=== PATIENT | female | born 1960 | race Caucasian/White ===

== ENCOUNTER 2019-06-06 08:28 | Outpatient (CLI) | payer OTHER, SELFPAY ==
[2019-06-06 08:58] LABS: Hemoglobin A1C 7.3 % (<5.7)
[2019-06-06 09:32] LABS: Alanine Aminotransferase 43 U/L (14-59); Albumin Level 3.6 g/dL (3.4-5.0); Alkaline Phosphatase 79 U/L (46-116); Anion Gap 15.5 mmol/L (7-16); Aspartate Amino Transferase 22 U/L (15-37); Bilirubin,Total 0.8 mg/dL (0.00-1.00); Blood Urea Nitrogen 18 mg/dL (7-18); Calcium 8.8 mg/dL (8.5-10.1); Carbon Dioxide 26 mmol/L (21-32); Chloride 105 mmol/L (98-108); Cholesterol 190 mg/dL (0-200); Estimated Glomerular Filt Rate > 60; Glucose 156 mg/dL (70-99); HDL Direct 48 mg/dL (40-60); LDL Cholesterol Calculated 122 mg/dL (<130); Osmolality Calculated 298 mOsm/kg (285-295); Potassium 4.5 mmol/L (3.5-5.1); Sodium 142 mmol/L (136-145); Total Protein 7.1 g/dL (6.4-8.2); Triglycerides 101 mg/dL (0-150)
== END 2019-06-06 08:29 | disposition home or self-care (01) ==
LOC: CHSLAB 08:31
PROVIDERS: PCP Internal Medicine; Visit Provider Internal Medicine
DX: E78.2 Mixed hyperlipidemia (principal); E11.65 Type 2 diabetes mellitus with hyperglycemia
CPT/HCPCS: 36415; 80053; 80061; 83036

== ENCOUNTER 2019-12-29 07:44 | Outpatient (CLI) | payer OTHER, SELFPAY ==
[2019-12-29 07:59] LABS: Add Urine Microscopic? NO; Appearance Urine Clear (Clear); Bilirubin Urine Negative (Negative); Blood Urine Negative (Negative); Color Urine Yellow (Yellow); Glucose Urine UA Negative (Negative); Ketones Urine Negative (Negative); Leukocyte Esterase Ur Negative (Negative); Nitrate Urine Negative (Negative); Protein Urine Negative (Negative); Specific Grav Ur 1.025 (1.010-1.020); Urobilinogen Urine 0.2 mg/dL (0.2-1.0)
[2019-12-29 08:12] LABS: Bacteria Urine None seen /hpf; RBC Urine 0-2 /hpf (0-2); Squamous Epithelial Cell Urine Few /hpf (Few); WBC Urine 0-3 /hpf (0-3)
[2019-12-29 08:55] LABS: Alanine Aminotransferase 43 U/L (14-59); Albumin Level 3.7 g/dL (3.4-5.0); Alkaline Phosphatase 68 U/L (46-116); Anion Gap 5 mmol/L (8-16); Aspartate Amino Transferase 29 U/L (15-37); Blood Urea Nitrogen 18 mg/dL (7-18); Calcium 8.7 mg/dL (8.5-10.1); Carbon Dioxide 33 mmol/L (21-32); Chloride 106 mmol/L (98-108); Cholesterol 142 mg/dL (0-200); Creatine Kinase 155 U/L (26-192); Estimated Glomerular Filt Rate > 60; Glucose 101 mg/dL (70-99); HDL Direct 43 mg/dL (40-60); LDL Cholesterol Calculated 81 mg/dL (<130); Osmolality Calculated 299 mOsm/kg (285-295); Potassium 4.1 mmol/L (3.5-5.1); Sodium 144 mmol/L (136-145); Total Protein 6.7 g/dL (6.4-8.2); Triglycerides 90 mg/dL (0-150)
[2019-12-29 09:03] LABS: MALB Creatinine Ratio 7.7 mg/g (0-30); Microalbumin Urine Random < 13.0 mg/L
== END 2019-12-29 07:45 | disposition home or self-care (01) ==
PROVIDERS: PCP Internal Medicine; Visit Provider Internal Medicine
DX: E78.2 Mixed hyperlipidemia (principal); E11.65 Type 2 diabetes mellitus with hyperglycemia; I10 Essential (primary) hypertension
CPT/HCPCS: 36415; 80053; 80061; 81003; 82043; 82550; 83036

== ENCOUNTER 2020-05-21 07:28 | Outpatient (CLI) | payer OTHER, SELFPAY ==
[2020-05-21 07:51] LABS: Hematocrit 44.4 % (35.0-49.0); Mean Corpuscular HGB Conc 31.5 g/dL (32.0-36.0); Mean Corpuscular Hemoglobin 28.7 pg (27.0-31.0); Mean Corpuscular Volume 91.2 fL (78.0-102.0); Mean Platelet Volume 9.2 fl (9.2-11.8); Platelet Count Result 327 K/mm3 (150-420); Red Blood Count 4.87 M/mm3 (4.20-5.40); Red Cell Distribution Width 13.2 % (11.6-14.4); White Blood Count 6.6 K/mm3 (4.8-10.8)
[2020-05-21 07:58] LABS: Add Urine Microscopic? NO; Appearance Urine Clear (Clear); Bilirubin Urine Negative (Negative); Blood Urine Negative (Negative); Color Urine Yellow (Yellow); Glucose Urine UA Negative (Negative); Ketones Urine Negative (Negative); Leukocyte Esterase Ur Negative (Negative); Nitrate Urine Negative (Negative); Protein Urine Negative (Negative); Specific Grav Ur 1.025 (1.010-1.020); Urobilinogen Urine 0.2 mg/dL (0.2-1.0)
[2020-05-21 07:59] LABS: Hemoglobin A1C 7.7 % (<5.7)
[2020-05-21 08:07] LABS: MALB Creatinine Ratio 15.9 mg/g (0-30); Microalbumin Urine Random 19.5 mg/L
[2020-05-21 08:52] LABS: Alanine Aminotransferase 88 U/L (14-59); Albumin Level 3.7 g/dL (3.4-5.0); Alkaline Phosphatase 87 U/L (46-116); Anion Gap 7 mmol/L (8-16); Aspartate Amino Transferase 48 U/L (15-37); Bilirubin,Total 1.1 mg/dL (0.00-1.00); Blood Urea Nitrogen 17 mg/dL (7-18); Calcium 9.1 mg/dL (8.5-10.1); Carbon Dioxide 32 mmol/L (21-32); Chloride 102 mmol/L (98-108); Cholesterol 183 mg/dL (0-200); Creatine Kinase 234 U/L (26-192); Estimated Glomerular Filt Rate 50; Free T3 2.56 pg/mL (2.18-3.98); Free T4 Free Thyroxine 0.76 ng/dL (0.76-1.46); Glucose 175 mg/dL (70-99); HDL Direct 39 mg/dL (40-60); LDL Cholesterol Calculated 109 mg/dL (<130); Osmolality Calculated 297 mOsm/kg (285-295); Potassium 4.5 mmol/L (3.5-5.1); Sodium 141 mmol/L (136-145); Thyroid Stimulating Hormone 3.12 uIU/mL (0.36-3.74); Total Protein 6.7 g/dL (6.4-8.2); Triglycerides 173 mg/dL (0-150)
[2020-05-21 09:08] LABS: Band Neutrophils Percent 0 % (0-6); Eosinophils Absolute Manual 0.06 K/mm3 (0.02-0.5); Eosinophils Percent Manual 1 % (1-6); Lymphocytes Absolute Manual 5.08 K/mm3 (1.1-4.5); Lymphocytes Percent Manual 77 % (18-44); Monocytes Absolute Manual 0.33 K/mm3 (0.1-0.90); Monocytes Percent Manual 5 % (3-9); Neutrophils Absolute Manual 1.12 K/mm3 (1.7-7.2); Neutrophils Percent Manual 17 % (46-73); Platelet Estimate Adequate (Adequate); Total Cells Counted 100
== END 2020-05-21 07:29 | disposition home or self-care (01) ==
LOC: CHSLAB 07:32
PROVIDERS: PCP Internal Medicine; Visit Provider Internal Medicine
DX: E78.2 Mixed hyperlipidemia (principal); I10 Essential (primary) hypertension; E11.65 Type 2 diabetes mellitus with hyperglycemia; K73.8 Other chronic hepatitis, not elsewhere classified
CPT/HCPCS: 36415; 80053; 80061; 81003; 82043; 82550; 83036; 84439; 84443; 84481; 85025

== ENCOUNTER 2020-07-01 08:56 | Outpatient (CLI) | payer OTHER, SELFPAY ==
[2020-07-01 10:24] LABS: Alanine Aminotransferase 63 U/L (14-59); Albumin Level 3.8 g/dL (3.4-5.0); Alkaline Phosphatase 75 U/L (46-116); Anion Gap 6 mmol/L (8-16); Aspartate Amino Transferase 33 U/L (15-37); Bilirubin,Total 1.3 mg/dL (0.00-1.00); Blood Urea Nitrogen 20 mg/dL (7-18); Calcium 9.1 mg/dL (8.5-10.1); Carbon Dioxide 34 mmol/L (21-32); Chloride 102 mmol/L (98-108); Estimated Glomerular Filt Rate 50; Glucose 157 mg/dL (70-99); Osmolality Calculated 299 mOsm/kg (285-295); Potassium 4.5 mmol/L (3.5-5.1); Sodium 142 mmol/L (136-145); Total Protein 6.9 g/dL (6.4-8.2)
== END 2020-07-01 08:57 | disposition home or self-care (01) ==
PROVIDERS: PCP Internal Medicine; Visit Provider Internal Medicine
DX: E11.65 Type 2 diabetes mellitus with hyperglycemia (principal)
CPT/HCPCS: 36415; 80053

== ENCOUNTER 2021-07-07 07:51 | Outpatient (CLI) | payer OTHER, SELFPAY ==
[2021-07-07 08:32] LABS: Hemoglobin A1C 8.6 % (<5.7)
[2021-07-07 09:07] LABS: Alanine Aminotransferase 65 U/L (14-59); Albumin Level 3.5 g/dL (3.4-5.0); Alkaline Phosphatase 86 U/L (46-116); Anion Gap 4 mmol/L (8-16); Aspartate Amino Transferase 38 U/L (15-37); Bilirubin,Total 0.5 mg/dL (0.00-1.00); Blood Urea Nitrogen 14 mg/dL (7-18); Calcium 9.2 mg/dL (8.5-10.1); Carbon Dioxide 34 mmol/L (21-32); Chloride 102 mmol/L (98-108); Estimated Glomerular Filt Rate > 60; Glucose 128 mg/dL (70-99); Osmolality Calculated 292 mOsm/kg (285-295); Potassium 4.4 mmol/L (3.5-5.1); Sodium 140 mmol/L (136-145); Total Protein 6.8 g/dL (6.4-8.2)
== END 2021-07-07 07:52 | disposition home or self-care (01) ==
LOC: CHSLAB 07:52
PROVIDERS: PCP Internal Medicine; Visit Provider Internal Medicine
DX: E11.65 Type 2 diabetes mellitus with hyperglycemia (principal)
CPT/HCPCS: 36415; 80053; 83036

== ENCOUNTER 2021-12-19 16:55 | Outpatient (RCR) | payer OTHER, SELFPAY ==
--- NOTE | 2021-12-19 18:01 | PTOPEVAL1 ---
Assessment and note entered by Aysha Webb DPT Evaluation Information Assessment Status Evaluation Diagnosis R shoulder pain Onset 06/06/2021 Subjective Information Pt reports that pain begain in June with insidious onset. Pt reports most difficulty with reaching behind her and reaching behind her back but reports lifting heavy objects. Pt reports that she notes some discomfort after typing all day long in her shoulder. Pt reports most discomfort within the joint and like a band around her arm. Pt reports occasionally numbness/tingling in her elbows, wrist, and hands. She reports that sleep has been affected as she struggles to lay on her side (especially the R). She reports that her symptoms have been worsening over time. 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 Pt reports that in the past she has had mild pain in her shoulder due to her diagnosis of RA but never an injury before. Reported Pain Level Pain Score 6: Self Report Assessment PT Clinical Summary Pt presents to physical therapy with R shoulder pain, decreased ROM, altered posture, and decreased strength. She presents with signs and symptoms consistent with R adhesive capsulitis due to her decreased AROM and PROM in a capsular pattern, relatively normal strength, and high levels of pain over a long period of time. Her current deficits make it more difficult for her to reach forward and behind her without significant pain. She was educated on potential pathophysiology and POC going forward. She was provided with an HEP focused on shoulder mobility within her tolerance. She will benefit from skilled PT to facilitate symptom relief, improve the aforementioned impairments, and return to functional and recreational activities. Plan of Care Interventions Electrical Stimulation,Hot Pack/Cold Pack,Manual Therapy,Patient/Caregiver Educati,Therapeutic Activities,Therapeutic Exercise PT Services Indicated Yes Treatment Frequency and 1-2x week for 8 visits Duration These treatments will address the objective and functional deficits as defined above. The patient will be advanced safely and appropriately in order for the patient to progress towards his/her prior level of function. Additional exercises will be introduced and as well as a comprehensive home exercise program upon discharg
--- NOTE | 2022-02-01 14:05 | PTOPDC ---
Assessment and note entered by Aysha Webb DPT Evaluation Information Assessment Status Discharge Diagnosis R shoulder pain Onset 06/06/2021 Subjective Information Pt reports slight improvements in her functional level since beginning therapy. She still has a lot of difficulty when putting on her coat. She notes that she has been able to lie on her R shoulder more than she used to, and is not in constant pain anymore like she used to be. She still reports pain in a band formation around her arm. She still gets some numbness and tingling in her arm but this is not quite as severe. Reported Pain Level Pain Score 2: Self Report Assessment PT Clinical Summary Pt presents to physical therapy with significant improvements in pain, quality of life, and R UE strength, however, she demonstrates insignificant changes in R UE ROM after 8 visits of physical therapy over 6 weeks. PT suspects this is likely due to the patient still being in the frozen stage of her adhesive capsulitis. She was educated on continuing her current HEP independently to maintain the improvements she had made thusfar with PT. She was also educated on the potential for an injection for her shoulder should her pain worsen with functional activities. Lastly, she was educated on following up with our clinic once her range of motion and symptoms seem to improve.
== END 2022-02-01 16:43 | disposition home or self-care (01) ==
LOC: CHSPT 16:55
PROVIDERS: PCP Internal Medicine; Visit Provider Internal Medicine
DX: M25.511 Pain in right shoulder (principal)
CPT/HCPCS: 97014; 97110; 97161; G0283

== ENCOUNTER 2022-03-17 07:01 | Outpatient (CLI) | payer OTHER, SELFPAY ==
[2022-03-17 07:23] LABS: Basophils Absolute Auto 0.06 K/mm3 (0.00-0.10); Basophils Percent Auto 1.1 % (0.0-1.0); Eosinophils Absolute Auto 0.15 K/mm3 (0.02-0.50); Eosinophils Percent Auto 2.7 % (1.0-6.0); Hematocrit 43.6 % (35.0-49.0); Hemoglobin 13.9 g/dL (12.0-15.0); Immature Granulocyte Absolute 0.01 K/mm3 (0.00-0.00); Immature Granulocyte Percent A 0.2 % (0.0-0.0); Lymphocytes Percent Auto 57.9 % (18.0-42.0); Mean Corpuscular HGB Conc 31.9 g/dL (32.0-36.0); Mean Corpuscular Hemoglobin 29.1 pg (27.0-31.0); Mean Corpuscular Volume 91.4 fL (78.0-102.0); Mean Platelet Volume 8.8 fl (9.2-11.8); Monocytes Absolute Auto 0.32 K/mm3 (0.10-0.90); Monocytes Percent Auto 5.8 % (2.0-11.0); Neutrophils Absolute Auto 1.8 K/mm3 (1.7-7.2); Neutrophils Percent Auto 32.3 % (50.0-70.0); Platelet Count Result 267 K/mm3 (150-420); Red Blood Count 4.77 M/mm3 (4.20-5.40); Red Cell Distribution Width 12.4 % (11.6-14.4); White Blood Count 5.5 K/mm3 (4.8-10.8)
[2022-03-17 07:32] LABS: Hemoglobin A1C 8.5 % (<5.7)
[2022-03-17 07:36] LABS: MALB Creatinine Ratio 122.2 mg/g (0-30)
[2022-03-17 08:21] LABS: Alanine Aminotransferase 50 U/L (14-59); Albumin Level 3.7 g/dL (3.4-5.0); Alkaline Phosphatase 100 U/L (46-116); Anion Gap 4 mmol/L (8-16); Aspartate Amino Transferase 30 U/L (15-37); Bilirubin,Total 0.8 mg/dL (0.00-1.00); Blood Urea Nitrogen 16 mg/dL (7-18); Carbon Dioxide 33 mmol/L (21-32); Chloride 107 mmol/L (98-108); Cholesterol 136 mg/dL (0-200); Estimated Glomerular Filt Rate 41; Folic Acid 19.6 ng/mL (8.6->20); Free T4 Free Thyroxine 0.75 ng/dL (0.76-1.46); Glucose 139 mg/dL (70-99); HDL Direct 38 mg/dL (40-60); LDL Cholesterol Calculated 59 mg/dL (<130); Osmolality Calculated 301 mOsm/kg (285-295); Potassium 3.9 mmol/L (3.5-5.1); Sodium 144 mmol/L (136-145); Thyroid Stimulating Hormone 4.62 uIU/mL (0.36-3.74); Total Protein 6.7 g/dL (6.4-8.2); Triglycerides 197 mg/dL (0-150); Vitamin B12 1220 pg/mL (193-986)
[2022-03-21 03:52] LABS: Thyroid Peroxidase Antibodies <1 IU/mL (<9)
[2022-03-22 15:18] LABS: Cortisol Random 16.5 mcg/dL (***)
[2022-03-23 04:09] LABS: Adrenocorticotropic Hormone 149 pg/mL (6-50)
== END 2022-03-17 07:02 | disposition home or self-care (01) ==
LOC: CHSLAB 07:03
PROVIDERS: PCP Internal Medicine; Visit Provider Internal Medicine Endocrinology, Diabetes & Metabolism
DX: E78.5 Hyperlipidemia, unspecified (principal); E11.65 Type 2 diabetes mellitus with hyperglycemia; R53.83 Other fatigue
CPT/HCPCS: 36415; 80053; 80061; 82024; 82043; 82533; 82607; 82746; 83036; 84439; 84443; 85025; 86376

== ENCOUNTER 2022-05-14 07:11 | Outpatient (CLI) | payer OTHER, SELFPAY ==
[2022-05-14 08:38] LABS: Anion Gap 6 mmol/L (8-16); Blood Urea Nitrogen 15 mg/dL (7-18); Calcium 9.7 mg/dL (8.5-10.1); Carbon Dioxide 34 mmol/L (21-32); Chloride 99 mmol/L (98-108); Estimated Glomerular Filt Rate 42; Glucose 219 mg/dL (70-99); Osmolality Calculated 295 mOsm/kg (285-295); Potassium 4.7 mmol/L (3.5-5.1); Sodium 139 mmol/L (136-145)
[2022-05-16 21:28] LABS: Cortisol Baseline 2.2 mcg/dL (***)
== END 2022-05-14 07:12 | disposition home or self-care (01) ==
LOC: CHSLAB 07:13
PROVIDERS: PCP Internal Medicine; Visit Provider Internal Medicine Endocrinology, Diabetes & Metabolism
DX: R63.5 Abnormal weight gain (principal); E86.0 Dehydration
CPT/HCPCS: 36415; 80048; 82533

== ENCOUNTER 2022-06-09 07:36 | Outpatient (CLI) | payer OTHER, SELFPAY ==
--- NOTE | ~2022-06-09 | MR_ITS ---
EXAMINATION: MR pituitary wo/w con DATE: 06/09/2022 08:40 INDICATION: Abnormal pituitary function tests. TECHNIQUE: Magnetic resonance imaging (MRI) of the brain and brainstem was performed without and with 18 mL MultiHance intravenous contrast. COMPARISON: None. FINDINGS: The pituitary is normal in size with height of 5 mm. Infundibulum is at the midline. There is no intracranial hemorrhage, acute infarction, or abnormal intracranial mass lesion. The ventricles are normal in size. The mastoid air cells are normal. The paranasal sinuses are clear. The orbits ar e normal. IMPRESSION: 1. Normal pituitary. Normal brain. Reviewed, dictated and finalized at location A. [facility]
== END 2022-06-09 07:37 | disposition home or self-care (01) ==
PROVIDERS: PCP Internal Medicine; Visit Provider Internal Medicine Endocrinology, Diabetes & Metabolism
DX: R94.7 Abnormal results of other endocrine function studies (principal)
CPT/HCPCS: 70553; A9577

== ENCOUNTER 2022-06-28 07:35 | Outpatient (CLI) | payer OTHER, SELFPAY ==
[2022-06-28 08:09] LABS: MALB Creatinine Ratio 147.1 mg/g (0-30); Microalbumin Urine Random 97.4 mg/L; Sodium Urine Random 171 mmol/L (20-110)
[2022-06-28 08:15] LABS: Hemoglobin A1C 7.2 % (<5.7)
[2022-06-28 09:08] LABS: Albumin Level 3.6 g/dL (3.4-5.0); Anion Gap 8 mmol/L (8-16); Blood Urea Nitrogen 12 mg/dL (7-18); Calcium 9.1 mg/dL (8.5-10.1); Carbon Dioxide 32 mmol/L (21-32); Chloride 106 mmol/L (98-108); Cholesterol 128 mg/dL (0-200); Estimated Glomerular Filt Rate 48; Free T3 2.41 pg/mL (2.18-3.98); Free T4 Free Thyroxine 0.99 ng/dL (0.76-1.46); Glucose 84 mg/dL (70-99); HDL Direct 37 mg/dL (40-60); LDL Cholesterol Calculated 47 mg/dL (<130); Osmolality Calculated 300 mOsm/kg (285-295); Potassium 3.9 mmol/L (3.5-5.1); Sodium 146 mmol/L (136-145); Triglycerides 219 mg/dL (0-150)
[2022-06-28 10:11] LABS: Eosinophil Urine 0 % (0-0); Urine Eos QC 2nd Tech Confirmed
[2022-07-01 13:34] LABS: Albumin 3.9 g/dL (3.8-4.8); Alpha 1 Globulin 0.2 g/dL (0.2-0.3); Alpha 2 Globulin 0.9 g/dL (0.5-0.9); Beta 1 Globulin 0.4 g/dL (0.4-0.6); Gamma Globulin 0.8 g/dL (0.8-1.7); Protein, Total 6.6 g/dL (6.1-8.1)
[2022-07-02 07:59] LABS: Complement C3 139 mg/dL (83-193)
[2022-07-03 10:14] LABS: Anti Glomerular Basement Memb <1.0 AI (<1.0)
[2022-07-03 20:33] LABS: Creatinine, Random Urine 70 mg/dL (20-275); Total Protein/Creatinine Ratio 1243 mg/g creat (24-184)
[2022-07-05 02:08] LABS: ANCA Screen Negative (Negative)
== END 2022-06-28 07:36 | disposition home or self-care (01) ==
LOC: CHSLAB 07:38
PROVIDERS: PCP Internal Medicine; Visit Provider Internal Medicine Nephrology
DX: I10 Essential (primary) hypertension (principal); E11.9 Type 2 diabetes mellitus without complications; R79.89 Other specified abnormal findings of blood chemistry
CPT/HCPCS: 36415; 80061; 80069; 82043; 82570; 83036; 83520; 84155; 84156; 84165; 84166; 84300; 84439; 84443; 84481; 85999; 86036; 86160

== ENCOUNTER 2022-07-03 12:21 | Outpatient (CLI) | payer OTHER, SELFPAY ==
--- NOTE | ~2022-07-03 | US_ITS ---
Renal-Bladder ultrasound Clinical History: Abnormal findings of blood chemistry Technique: Real-time sonographic imaging of the kidneys and urinary bladder was performed. Findings: The right kidney measures 10.6 cm in length and the left kidney measures 12.5 cm. There is no hydronephrosis or renal calculus identified. Renal cortical echogenicity is within normal limits. No renal mass lesion is identified. The urinary bladder is moderately distended at the time of this exam. No intraluminal echoes are iden tified. No abnormal wall thickening is seen. Impression: Unremarkable ultrasound of the kidneys and urinary bladder. Reviewed, dictated and finalized at location M. Impression: Unremarkable ultrasound of the kidneys and urinary bladder.
== END 2022-07-03 12:22 | disposition home or self-care (01) ==
LOC: CHSIMG 12:22
PROVIDERS: PCP Internal Medicine; Visit Provider Internal Medicine Nephrology
DX: E11.9 Type 2 diabetes mellitus without complications (principal); I10 Essential (primary) hypertension; R79.89 Other specified abnormal findings of blood chemistry
CPT/HCPCS: 76775

== ENCOUNTER 2022-09-13 13:30 | Outpatient (RCR) | payer OTHER, SELFPAY ==
[2022-07-03 10:32] VITALS: BMI 29.7
[2022-08-16 09:31] VITALS: BMI 30.1
[2022-08-16 09:32] VITALS: BMI 30.1
[2022-09-13 13:30] VITALS: BMI 29.2
[2022-09-13 14:32] VITALS: BMI 29.2
== END 2022-09-17 08:51 | disposition home or self-care (01) ==
LOC: ANHDMC 13:30
PROVIDERS: PCP Internal Medicine; Visit Provider Internal Medicine Endocrinology, Diabetes & Metabolism
DX: E11.65 Type 2 diabetes mellitus with hyperglycemia (principal); Z71.89 Other specified counseling; Z71.3 Dietary counseling and surveillance
CPT/HCPCS: 97802; 97803; G0108; G0109

== ENCOUNTER 2022-10-31 07:34 | Outpatient (CLI) | payer OTHER, SELFPAY ==
[2022-10-31 08:05] LABS: Creatinine Urine 91.45 mg/dL (40-278); MALB Creatinine Ratio 102.8 mg/g (0-30); Microalbumin Urine Random 94.1 mg/L
[2022-10-31 08:07] LABS: Hemoglobin A1C 7.2 % (<5.7)
[2022-10-31 09:09] LABS: Alanine Aminotransferase 42 U/L (14-59); Albumin Level 3.7 g/dL (3.4-5.0); Alkaline Phosphatase 76 U/L (46-116); Anion Gap 6 mmol/L (8-16); Aspartate Amino Transferase 22 U/L (15-37); Bilirubin,Total 0.8 mg/dL (0.00-1.00); Blood Urea Nitrogen 19 mg/dL (7-18); Calcium 9.3 mg/dL (8.5-10.1); Carbon Dioxide 32 mmol/L (21-32); Chloride 106 mmol/L (98-108); Cholesterol 115 mg/dL (0-200); Estimated Glomerular Filt Rate 36; Free T3 1.97 pg/mL (2.18-3.98); Glucose 154 mg/dL (70-99); HDL Direct 35 mg/dL (40-60); LDL Cholesterol Calculated 44 mg/dL (<130); Osmolality Calculated 303 mOsm/kg (285-295); Potassium 4.7 mmol/L (3.5-5.1); Sodium 144 mmol/L (136-145); Thyroid Stimulating Hormone 0.44 uIU/mL (0.36-3.74); Total Protein 7.3 g/dL (6.4-8.2); Triglycerides 179 mg/dL (0-150)
[2022-11-04 05:23] LABS: Cortisol Random 21.8 mcg/dL (***)
[2022-11-04 11:09] LABS: Adrenocorticotropic Hormone 117 pg/mL (6-50)
== END 2022-10-31 07:35 | disposition home or self-care (01) ==
LOC: CHSLAB 07:36
PROVIDERS: PCP Internal Medicine; Visit Provider Internal Medicine Endocrinology, Diabetes & Metabolism
DX: R94.7 Abnormal results of other endocrine function studies (principal); E11.9 Type 2 diabetes mellitus without complications; E78.2 Mixed hyperlipidemia; E03.9 Hypothyroidism, unspecified
CPT/HCPCS: 36415; 80053; 80061; 82024; 82043; 82533; 83036; 84439; 84443; 84481

== ENCOUNTER 2022-11-01 09:30 | Outpatient (RCR) | payer OTHER, SELFPAY ==
[2022-11-01 09:34] VITALS: BMI 28.6
[2022-11-01 09:35] VITALS: BMI 28.6
== END 2023-01-14 13:23 | disposition home or self-care (01) ==
LOC: ANHDMC 09:30
PROVIDERS: PCP Internal Medicine; Visit Provider Internal Medicine Endocrinology, Diabetes & Metabolism
DX: E11.65 Type 2 diabetes mellitus with hyperglycemia (principal); Z71.89 Other specified counseling; Z71.3 Dietary counseling and surveillance
CPT/HCPCS: 97803; G0108

== ENCOUNTER 2022-11-05 07:30 | Outpatient (CLI) | payer OTHER, SELFPAY ==
[2022-11-14 18:46] LABS: Cortisol, Saliva 0.54 mcg/dL
[2022-11-14 18:46] LABS: Cortisol, Saliva 0.08 mcg/dL
== END 2022-11-05 07:31 | disposition home or self-care (01) ==
LOC: CHSLAB 07:32
PROVIDERS: PCP Internal Medicine; Visit Provider Internal Medicine Endocrinology, Diabetes & Metabolism
DX: R94.7 Abnormal results of other endocrine function studies (principal)
CPT/HCPCS: 82530

== ENCOUNTER 2022-12-11 07:10 | Outpatient (CLI) | payer OTHER, SELFPAY ==
[2022-12-11 07:35] LABS: Creatinine Urine 81.09 mg/dL (40-278); Total Protein Urine Random 86.9 mg/dL (0.0-11.9); Ur Ttl Prot Creatinine Ratio 1.07 mg/mg (0-0.20)
[2022-12-11 08:06] LABS: Albumin Level 3.7 g/dL (3.4-5.0); Anion Gap 4 mmol/L (8-16); Blood Urea Nitrogen 22 mg/dL (7-18); Calcium 9.3 mg/dL (8.5-10.1); Carbon Dioxide 31 mmol/L (21-32); Chloride 106 mmol/L (98-108); Estimated Glomerular Filt Rate 48; Glucose 115 mg/dL (70-99); Osmolality Calculated 296 mOsm/kg (285-295); Phosphorus 4.1 mg/dL (2.6-4.7); Potassium 4.3 mmol/L (3.5-5.1); Sodium 141 mmol/L (136-145)
[2022-12-15 13:24] LABS: Vitamin D 25 Hydroxy 46 ng/mL (30-100)
[2022-12-16 19:24] LABS: Parathyroid Intact 49 pg/mL (14-64)
== END 2022-12-11 07:11 | disposition home or self-care (01) ==
LOC: CHSLAB 07:12
PROVIDERS: PCP Internal Medicine; Visit Provider Internal Medicine Nephrology
DX: N25.81 Secondary hyperparathyroidism of renal origin (principal); I12.9 Hypertensive chronic kidney disease with stage 1 through stage 4 chronic kidney disease, or unspecified chronic kidney disease; N18.31 Chronic kidney disease, stage 3a; E11.22 Type 2 diabetes mellitus with diabetic chronic kidney disease; E55.9 Vitamin D deficiency, unspecified; R77.8 Other specified abnormalities of plasma proteins
CPT/HCPCS: 36415; 80069; 82306; 82570; 83970; 84156; 86334; 86335

== ENCOUNTER 2022-12-22 07:44 | Outpatient (CLI) | payer OTHER, SELFPAY ==
[2022-12-22 08:15] LABS: Basophils Absolute Auto 0.03 K/mm3 (0.00-0.10); Basophils Percent Auto 0.5 % (0.0-1.0); Eosinophils Absolute Auto 0.09 K/mm3 (0.02-0.50); Eosinophils Percent Auto 1.6 % (1.0-6.0); Hematocrit 40.1 % (35.0-49.0); Hemoglobin 13.4 g/dL (12.0-15.0); Immature Granulocyte Absolute 0.01 K/mm3 (0.00-0.00); Immature Granulocyte Percent A 0.2 % (0.0-0.0); Lymphocytes Absolute Auto 2.59 K/mm3 (1.10-4.50); Mean Corpuscular HGB Conc 33.4 g/dL (32.0-36.0); Mean Corpuscular Volume 89.7 fL (78.0-102.0); Mean Platelet Volume 8.9 fl (9.2-11.8); Monocytes Absolute Auto 0.41 K/mm3 (0.10-0.90); Monocytes Percent Auto 7.3 % (2.0-11.0); Neutrophils Absolute Auto 2.5 K/mm3 (1.7-7.2); Neutrophils Percent Auto 44.4 % (50.0-70.0); Platelet Count Result 270 K/mm3 (150-420); Red Blood Count 4.47 M/mm3 (4.20-5.40); White Blood Count 5.6 K/mm3 (4.8-10.8)
[2022-12-22 08:56] LABS: Rheumatoid Factor Screen Negative (Negative)
[2022-12-22 09:01] LABS: Alanine Aminotransferase 45 U/L (14-59); Albumin Level 3.5 g/dL (3.4-5.0); Alkaline Phosphatase 68 U/L (46-116); Anion Gap 6 mmol/L (8-16); Aspartate Amino Transferase 11 U/L (15-37); Blood Urea Nitrogen 15 mg/dL (7-18); CRP < 0.5 mg/dL (0.0-0.9); Calcium 8.9 mg/dL (8.5-10.1); Carbon Dioxide 31 mmol/L (21-32); Chloride 107 mmol/L (98-108); Estimated Glomerular Filt Rate 54; Glucose 118 mg/dL (70-99); Osmolality Calculated 299 mOsm/kg (285-295); Potassium 3.8 mmol/L (3.5-5.1); Sodium 144 mmol/L (136-145); Total Protein 6.4 g/dL (6.4-8.2)
[2022-12-22 09:19] LABS: Erythrocyte Sedimentation Rate 13 mm/hr (0-20)
[2022-12-25 17:13] LABS: NIL 0.02 IU/mL; Quantiferon TB Plus, 1T NEGATIVE (NEGATIVE)
[2022-12-26 19:06] LABS: Hepatitis B Core Antibody Nonreactive (Nonreactive); Hepatitis C Virus Antibody Nonreactive
== END 2022-12-22 07:45 | disposition home or self-care (01) ==
LOC: CHSLAB 07:48
PROVIDERS: PCP Internal Medicine
DX: L40.50 Arthropathic psoriasis, unspecified (principal)
CPT/HCPCS: 36415; 80053; 85025; 85652; 86038; 86140; 86200; 86430; 86480; 86705; 86803

== ENCOUNTER 2023-01-12 09:56 | Outpatient (CLI) | payer OTHER, SELFPAY ==
[2023-01-12 10:26] LABS: Albumin Level 3.7 g/dL (3.4-5.0); Anion Gap 5 mmol/L (8-16); Blood Urea Nitrogen 16 mg/dL (7-18); Calcium 9.3 mg/dL (8.5-10.1); Carbon Dioxide 31 mmol/L (21-32); Chloride 102 mmol/L (98-108); Estimated Glomerular Filt Rate 58; Glucose 226 mg/dL (70-99); Osmolality Calculated 294 mOsm/kg (285-295); Phosphorus 3.6 mg/dL (2.6-4.7); Potassium 4.3 mmol/L (3.5-5.1); Sodium 138 mmol/L (136-145)
[2023-01-18 12:09] LABS: Anti Cyclic Citrullinated Pept <16 Units (<20)
== END 2023-01-12 09:57 | disposition home or self-care (01) ==
LOC: CHSLAB 09:57
PROVIDERS: PCP Internal Medicine; Visit Provider Internal Medicine Nephrology
DX: N18.31 Chronic kidney disease, stage 3a (principal)
CPT/HCPCS: 36415; 80069; 86200

== ENCOUNTER 2023-04-06 07:48 | Outpatient (CLI) | payer OTHER, SELFPAY ==
[2023-04-06 08:16] LABS: Basophils Absolute Auto 0.03 K/mm3 (0.00-0.10); Basophils Percent Auto 0.6 % (0.0-1.0); Eosinophils Absolute Auto 0.14 K/mm3 (0.02-0.50); Eosinophils Percent Auto 2.6 % (1.0-6.0); Hematocrit 41.4 % (35.0-49.0); Hemoglobin 13.5 g/dL (12.0-15.0); Immature Granulocyte Absolute 0.01 K/mm3 (0.00-0.00); Immature Granulocyte Percent A 0.2 % (0.0-0.0); Lymphocytes Percent Auto 53.5 % (18.0-42.0); Mean Corpuscular HGB Conc 32.6 g/dL (32.0-36.0); Mean Corpuscular Hemoglobin 29.2 pg (27.0-31.0); Mean Corpuscular Volume 89.6 fL (78.0-102.0); Mean Platelet Volume 9.1 fl (9.2-11.8); Monocytes Absolute Auto 0.37 K/mm3 (0.10-0.90); Monocytes Percent Auto 6.8 % (2.0-11.0); Neutrophils Percent Auto 36.3 % (50.0-70.0); Platelet Count Result 276 K/mm3 (150-420); Red Blood Count 4.62 M/mm3 (4.20-5.40); Red Cell Distribution Width 12.4 % (11.6-14.4); White Blood Count 5.4 K/mm3 (4.8-10.8)
[2023-04-06 08:27] LABS: Alanine Aminotransferase 63 U/L (14-59); Albumin Level 3.7 g/dL (3.4-5.0); Alkaline Phosphatase 65 U/L (46-116); Anion Gap 3 mmol/L (8-16); Aspartate Amino Transferase 32 U/L (15-37); Bilirubin,Total 0.8 mg/dL (0.00-1.00); Blood Urea Nitrogen 9 mg/dL (7-18); Calcium 9.4 mg/dL (8.5-10.1); Carbon Dioxide 34 mmol/L (21-32); Chloride 104 mmol/L (98-108); Cholesterol 128 mg/dL (0-200); Creatine Kinase 74 U/L (26-192); Estimated Glomerular Filt Rate 53; Glucose 237 mg/dL (70-99); HDL Direct 51 mg/dL (40-60); LDL Cholesterol Calculated 53 mg/dL (<130); Osmolality Calculated 298 mOsm/kg (285-295); Phosphorus 3.6 mg/dL (2.6-4.7); Potassium 4.4 mmol/L (3.5-5.1); Sodium 141 mmol/L (136-145); Total Protein 6.4 g/dL (6.4-8.2); Triglycerides 119 mg/dL (0-150)
[2023-04-06 08:39] LABS: CRP < 0.5 mg/dL (0.0-0.9)
[2023-04-06 08:40] LABS: Total Protein Urine Random 85.4 mg/dL (0.0-11.9); Ur Ttl Prot Creatinine Ratio 0.99 mg/mg (0-0.20)
[2023-04-06 09:13] LABS: Erythrocyte Sedimentation Rate 8 mm/hr (0-20)
== END 2023-04-06 07:49 | disposition home or self-care (01) ==
PROVIDERS: PCP Internal Medicine; Visit Provider Internal Medicine Nephrology
DX: Z51.81 Encounter for therapeutic drug level monitoring (principal)
CPT/HCPCS: 36415; 80053; 80061; 82550; 82570; 84100; 84156; 85025; 85652; 86140

== ENCOUNTER 2023-08-12 11:27 | Outpatient (CLI) | payer OTHER, SELFPAY ==
[2023-08-12 12:40] LABS: Creatinine Urine 30.26 mg/dL (40-278); Total Protein Urine Random 20.7 mg/dL (0.0-11.9); Ur Ttl Prot Creatinine Ratio 0.68 mg/mg (0-0.20)
[2023-08-12 13:14] LABS: Albumin Level 3.6 g/dL (3.4-5.0); Anion Gap 9 mmol/L (4-12); Blood Urea Nitrogen 12 mg/dL (7-18); Calcium 9.6 mg/dL (8.5-10.1); Carbon Dioxide 29 mmol/L (21-32); Chloride 99 mmol/L (98-108); Estimated Glomerular Filt Rate 45; Glucose 379 mg/dL (70-99); Osmolality Calculated 299 mOsm/kg (285-295); Phosphorus 3.1 mg/dL (2.6-4.7); Potassium 5.3 mmol/L (3.5-5.1); Sodium 137 mmol/L (136-145)
[2023-08-13 14:18] LABS: Parathyroid Intact 28 pg/mL (16-77)
[2023-08-14 08:09] LABS: Vitamin D 25 Hydroxy 49 ng/mL (30-100)
== END 2023-08-12 11:28 | disposition home or self-care (01) ==
LOC: CHSLAB 11:29
PROVIDERS: PCP Internal Medicine; Visit Provider Internal Medicine Nephrology
DX: N25.81 Secondary hyperparathyroidism of renal origin (principal); I12.9 Hypertensive chronic kidney disease with stage 1 through stage 4 chronic kidney disease, or unspecified chronic kidney disease; N18.31 Chronic kidney disease, stage 3a; E55.9 Vitamin D deficiency, unspecified; E11.22 Type 2 diabetes mellitus with diabetic chronic kidney disease; E27.0 Other adrenocortical overactivity
CPT/HCPCS: 36415; 80069; 82306; 82570; 83970; 84156

== ENCOUNTER 2023-11-12 08:58 | Outpatient (RCR) | payer OTHER, SELFPAY ==
--- NOTE | 2023-11-12 10:10 | OPREHPOC ---
Outpatient Therapy Plan of Care This is a Multidisciplinary Plan of Care that may contain components documented by all disciplines (PT, OT, and ST.) PT Problem 1 PT Problem #1 Knowledge Deficit PT Goal 1 Goal 1. independent and compliant with HEP Target Visit 6 PT Problem 2 PT Problem #2 Pain PT Goal 1 Goal 1. decrease pain at worst across the spine to 2/10 or less Target Visit 12 Progress Met PT Problem 3 PT Problem #3 Impaired Range of Motion PT Goal 1 Goal 1. improve active lumbar flexion to the ankles or better 2. improve active lumbar extension to 20 degrees or better 3. improve active lumbar bilateral side bending to 40 degrees 4. improve active cervical flex and ext to 45 degrees or better each 5. improve active cervical side bending to 30 degrees or better bilat 6. improve active cervical rotation to 70 degrees or better bilat Target Visit 12 PT Problem 4 PT Problem #4 Impaired Strength PT Goal 1 Goal 1. improve bilateral UE strength to 5/5 overall 2. improve bilateral LE strength to 5/5 overall 3. improve lower core strength to 4/5 or better 4. improve deep neck flexor strength to 4+/5 or better Target Visit 12 PT Problem 5 PT Problem #5 Impaired Functional Mobil PT Goal 1 Goal 1. NDI to display 20% or less functional deficits 2. oswestry to display 20% or less functional deficits 3. patient to sit for 2 hours or more at a time without increased pain 4. patient to return to prior level home care without resting due to pain Target Visit 12
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
--- NOTE | 2023-11-15 17:26 | PCPTNOTE ---
I reviewed the License Pending Therapist's documentation and agree with the findings.
--- NOTE | 2023-12-03 10:55 | OPREHPOC ---
Outpatient Therapy Plan of Care This is a Multidisciplinary Plan of Care that may contain components documented by all disciplines (PT, OT, and ST.) PT Problem 1 PT Problem #1 Knowledge Deficit PT Goal 1 Goal / Goal Update 1. independent and compliant with HEP Target Visit 6 Progress Met PT Problem 2 PT Problem #2 Pain PT Goal 1 Goal / Goal Update 1. decrease pain at worst across the spine to 2/10 or less Target Visit 12 Progress Not Met PT Problem 3 PT Problem #3 Impaired Range of Motion PT Goal 1 Goal / Goal Update 1. improve active lumbar flexion to the ankles or better 2. improve active lumbar extension to 20 degrees or better 3. improve active lumbar bilateral side bending to 40 degrees 4. improve active cervical flex and ext to 45 degrees or better each 5. improve active cervical side bending to 30 degrees or better bilat 6. improve active cervical rotation to 70 degrees or better bilat Target Visit 12 Progress Partially Met PT Problem 4 PT Problem #4 Impaired Strength PT Goal 1 Goal / Goal Update 1. improve bilateral UE strength to 5/5 overall 2. improve bilateral LE strength to 5/5 overall 3. improve lower core strength to 4/5 or better 4. improve deep neck flexor strength to 4+/5 or better Target Visit 12 Progress Partially Met PT Problem 5 PT Problem #5 Impaired Functional Mobil PT Goal 1 Goal / Goal Update 1. NDI to display 20% or less functional deficits 2. oswestry to display 20% or less functional deficits 3. patient to sit for 2 hours or more at a time without increased pain 4. patient to return to prior level home care without resting due to pain Target Visit 12
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
--- NOTE | 2023-12-06 10:22 | OPREHPOC ---
Outpatient Therapy Plan of Care This is a Multidisciplinary Plan of Care that may contain components documented by all disciplines (PT, OT, and ST.) PT Problem 1 PT Problem #1 Knowledge Deficit PT Goal 1 Goal / Goal Update 1. independent and compliant with HEP Target Visit 6 Progress Met PT Problem 2 PT Problem #2 Pain PT Goal 1 Goal / Goal Update 1. decrease pain at worst across the spine to 2/10 or less Target Visit 18 Progress Not Met PT Problem 3 PT Problem #3 Impaired Range of Motion PT Goal 1 Goal / Goal Update 1. improve active lumbar flexion to the ankles or better 2. improve active lumbar extension to 20 degrees or better 3. improve active lumbar bilateral side bending to 40 degrees 4. improve active cervical flex and ext to 45 degrees or better each 5. improve active cervical side bending to 30 degrees or better bilat 6. improve active cervical rotation to 70 degrees or better bilat Target Visit 18 Progress Partially Met PT Problem 4 PT Problem #4 Impaired Strength PT Goal 1 Goal / Goal Update 1. improve bilateral UE strength to 5/5 overall 2. improve bilateral LE strength to 5/5 overall 3. improve lower core strength to 4/5 or better 4. improve deep neck flexor strength to 4+/5 or better Target Visit 18 Progress Partially Met PT Problem 5 PT Problem #5 Impaired Functional Mobil PT Goal 1 Goal / Goal Update 1. NDI to display 20% or less functional deficits. met 2. oswestry to display 20% or less functional deficits. not met 3. patient to sit for 2 hours or more at a time without increased pain. not met 4. patient to return to prior level home care without resting due to pain. not met Target Visit 18 Progress Partially Met
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
--- NOTE | 2023-12-26 11:27 | OPREHPOC ---
Outpatient Therapy Plan of Care This is a Multidisciplinary Plan of Care that may contain components documented by all disciplines (PT, OT, and ST.) PT Problem 1 PT Problem #1 Knowledge Deficit PT Goal 1 Goal / Goal Update 1. independent and compliant with HEP Target Visit 6 Progress Met PT Problem 2 PT Problem #2 Pain PT Goal 1 Goal / Goal Update 1. decrease pain at worst across the spine to 2/10 or less Target Visit 18 Progress Not Met PT Problem 3 PT Problem #3 Impaired Range of Motion PT Goal 1 Goal / Goal Update 1. improve active lumbar flexion to the ankles or better. not met 2. improve active lumbar extension to 20 degrees or better. not met 3. improve active lumbar bilateral side bending to 40 degrees. not met 4. improve active cervical flex and ext to 45 degrees or better each. not met 5. improve active cervical side bending to 30 degrees or better bilat. not met 6. improve active cervical rotation to 70 degrees or better bilat. met Target Visit 18 Progress Partially Met PT Problem 4 PT Problem #4 Impaired Strength PT Goal 1 Goal / Goal Update 1. improve bilateral UE strength to 5/5 overall. not met 2. improve bilateral LE strength to 5/5 overall. partially met 3. improve lower core strength to 4/5 or better. not met 4. improve deep neck flexor strength to 4+/5 or better. not met Target Visit 18 Progress Partially Met PT Problem 5 PT Problem #5 Impaired Functional Mobil PT Goal 1 Goal / Goal Update 1. NDI to display 20% or less functional deficits. not met 2. oswestry to display 20% or less functional deficits. not met 3. patient to sit for 2 hours or more at a time without increased pain. met 4. patient to return to prior level home care without resting due to pain. not met Target Visit 18 Progress Partially Met
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
== END 2024-02-10 23:59 | disposition home or self-care (01) ==
LOC: CHSPT 08:58
PROVIDERS: PCP Internal Medicine; Visit Provider Internal Medicine
DX: M54.2 Cervicalgia (principal); M54.6 Pain in thoracic spine; M54.50 Low back pain, unspecified
CPT/HCPCS: 97014; 97110; 97140; 97161; G0283

== ENCOUNTER 2023-11-16 07:33 | Outpatient (CLI) | payer OTHER, SELFPAY ==
[2023-11-16 11:11] LABS: Basophils Absolute Auto 0.06 K/mm3 (0.00-0.10); Basophils Percent Auto 1.2 % (0.0-1.0); Eosinophils Absolute Auto 0.13 K/mm3 (0.02-0.50); Eosinophils Percent Auto 2.6 % (1.0-6.0); Hematocrit 44.3 % (35.0-49.0); Hemoglobin 14.8 g/dL (12.0-15.0); Immature Granulocyte Absolute 0.01 K/mm3 (0.00-0.00); Immature Granulocyte Percent A 0.2 % (0.0-0.0); Lymphocytes Absolute Auto 2.74 K/mm3 (1.10-4.50); Lymphocytes Percent Auto 55.7 % (18.0-42.0); Mean Corpuscular HGB Conc 33.4 g/dL (32-36); Mean Corpuscular Hemoglobin 29.7 pg (27.0-31.0); Mean Platelet Volume 9.1 fl (9.2-11.8); Monocytes Absolute Auto 0.41 K/mm3 (0.10-0.90); Monocytes Percent Auto 8.3 % (2.0-11.0); Neutrophils Absolute Auto 1.57 K/mm3 (1.70-7.20); Platelet Count Result 319 K/mm3 (150-420); Red Blood Count 4.98 M/mm3 (4.20-5.40); White Blood Count 4.9 K/mm3 (4.8-10.8)
[2023-11-16 13:34] LABS: Hemoglobin A1C 8.9 % (<5.7)
[2023-11-16 13:48] LABS: Alanine Aminotransferase 34 U/L (14-59); Albumin Level 3.9 g/dL (3.4-5.0); Alkaline Phosphatase 85 U/L (46-116); Anion Gap 10 mmol/L (4-12); Aspartate Amino Transferase 24 U/L (15-37); Blood Urea Nitrogen 16 mg/dL (7-18); Calcium 9.1 mg/dL (8.5-10.1); Carbon Dioxide 28 mmol/L (21-32); Chloride 104 mmol/L (98-108); Cholesterol 117 mg/dL (0-200); Estimated Glomerular Filt Rate 56; Free T3 2.71 pg/mL (2.18-3.98); Glucose 125 mg/dL (70-99); HDL Direct 40 mg/dL (40-60); LDL Cholesterol Calculated 42 mg/dL (<130); Osmolality Calculated 296 mOsm/kg (285-295); Sodium 142 mmol/L (136-145); Thyroid Stimulating Hormone 3.01 uIU/mL (0.36-3.74); Total Protein 7.4 g/dL (6.4-8.2); Triglycerides 174 mg/dL (0-150)
[2023-11-16 15:00] LABS: Vitamin B12 > 2000 pg/mL (193-986)
[2023-11-17 10:54] LABS: Vitamin D 25 Hydroxy 43 ng/mL (30-100)
[2023-11-18 19:18] LABS: Creatinine Urine 62.01 mg/dL (40-278); MALB Creatinine Ratio 74.6 mg/g (0-30); Microalbumin Urine Random 46.3 mg/L
[2023-11-18 19:38] LABS: Folic Acid > 20.0 ng/mL (8.6->20)
[2023-11-19 13:17] LABS: Thyroid Peroxidase Antibodies 3 IU/mL (<9)
== END 2023-11-16 07:34 | disposition home or self-care (01) ==
PROVIDERS: PCP Internal Medicine; Visit Provider Internal Medicine Endocrinology, Diabetes & Metabolism
DX: E11.65 Type 2 diabetes mellitus with hyperglycemia (principal); E78.5 Hyperlipidemia, unspecified; R53.83 Other fatigue; E03.9 Hypothyroidism, unspecified; E55.9 Vitamin D deficiency, unspecified; E34.9 Endocrine disorder, unspecified
CPT/HCPCS: 36415; 80053; 80061; 82043; 82306; 82570; 82607; 82746; 83036; 84156; 84439; 84443; 84481; 85025; 86376

== ENCOUNTER 2023-12-12 09:06 | Outpatient (CLI) | payer OTHER, SELFPAY ==
--- NOTE | ~2023-12-12 | MR_ITS ---
MRI of the lumbar spine Clinical History: Back pain Technique: Axial T2-weighted images, and sagittal T1-weighted, T2-weighted, and and T2 fat-sat images were acquired. Findings: No fracture identified. There is mild grade 1 retrolisthesis of L5 over S1. No bone marrow signal abnormality seen. At L1-L2, there is no disc bulge or herniation. There is minimal facet arthropathy. No central canal stenosis or neural foraminal narrowing. At L2-L3, there is mild disc bulge with mild facet hypertrophy. No central canal stenosis or neural f oraminal narrowing. At L3-L4, there is minimal disc bulge with minimal facet arthropathy. No central canal stenosis or ne ural foraminal narrowing. Probable tiny annular fissure. At L4-L5, there is advanced degenerative disc narrowing with diffuse disc bulge and moderate facet ar thropathy. There is moderate central canal stenosis. There is moderate bilateral neural foraminal zoie rowing, right worse than left. At L5-S1, there is advanced degenerative disc narrowing. There is mild diffuse disc bulge with modera te facet arthropathy. There is mild central canal stenosis. There is moderate to advanced bilateral n eural foraminal narrowing, right worse than left. Paravertebral soft tissues are unremarkable. Impression: Moderate to advanced degenerative spondylosis at L4-L5 and L5-S1, as detailed above. Reviewed, dictated and finalized at [facility]. Impression: Moderate to advanced degenerative spondylosis at L4-L5 and L5-S1, as detailed diana guthrie.
--- NOTE | ~2023-12-12 | MR_ITS ---
MRI of the thoracic spine Clinical History: Back pain Technique: Axial T2-weighted and gradient images, and sagittal T1-weighted, T2-weighted, and STIR mili ges were acquired. Findings: There is no fracture or subluxation of the thoracic spine. Vertebral bodies maintain normal height and alignment. No suspicious bone marrow signal abnormality seen. There is multilevel mild degenerative disc narrowing at the mid to lower thoracic spine. No disc bulg e or herniation seen. No spinal canal stenosis or cord compression identified. Neural foramina are we ll preserved throughout the thoracic spine. No abnormal signal seen in the spinal cord. Paravertebral soft tissues are unremarkable. Impression: No acute abnormality. Mild degenerative disc changes. Reviewed, dictated and finalized at location . Impression: No acute abnormality. Mild degenerative disc changes.
== END 2023-12-12 09:07 | disposition home or self-care (01) ==
PROVIDERS: PCP Internal Medicine; Visit Provider Internal Medicine
DX: M54.50 Low back pain, unspecified (principal); M54.6 Pain in thoracic spine; M43.06 Spondylolysis, lumbar region
CPT/HCPCS: 72146; 72148

== ENCOUNTER 2024-01-08 07:22 | Outpatient (CLI) | payer OTHER, SELFPAY ==
[2024-01-08 07:59] LABS: Creatinine Urine 87.69 mg/dL (40-278); Total Protein Urine Random 20.1 mg/dL (0.0-11.9); Ur Ttl Prot Creatinine Ratio 0.23 mg/mg (0-0.20)
[2024-01-08 08:22] LABS: Albumin Level 3.6 g/dL (3.4-5.0); Anion Gap 9 mmol/L (4-12); Blood Urea Nitrogen 16 mg/dL (7-18); Calcium 9.4 mg/dL (8.5-10.1); Carbon Dioxide 26 mmol/L (21-32); Chloride 103 mmol/L (98-108); Estimated Glomerular Filt Rate 50; Glucose 220 mg/dL (70-99); Osmolality Calculated 294 mOsm/kg (285-295); Phosphorus 3.5 mg/dL (2.6-4.7); Potassium 5.1 mmol/L (3.5-5.1); Sodium 138 mmol/L (136-145)
[2024-01-08 08:23] LABS: Creatinine Urine 39.33 mg/dL (40-278)
[2024-01-08 08:25] LABS: Creatinine 24 Hour Urine 1.14 g/24 hr (0.60-1.80); Total Volume 24 Hour Urine 2900 ml
[2024-01-10 03:28] LABS: Cortisol Random 0.8 mcg/dL
[2024-01-16 12:34] LABS: Cortisol, Saliva <0.03 mcg/dL
[2024-01-16 12:34] LABS: Cortisol, Saliva <0.03 mcg/dL
[2024-01-17 12:38] LABS: Dexamethasone 361 ng/dL
== END 2024-01-08 07:23 | disposition home or self-care (01) ==
LOC: CHSLAB 07:24
PROVIDERS: PCP Internal Medicine; Visit Provider Internal Medicine Nephrology
DX: E11.22 Type 2 diabetes mellitus with diabetic chronic kidney disease (principal); I12.9 Hypertensive chronic kidney disease with stage 1 through stage 4 chronic kidney disease, or unspecified chronic kidney disease; N18.31 Chronic kidney disease, stage 3a; E27.0 Other adrenocortical overactivity
CPT/HCPCS: 36415; 80069; 80299; 81050; 82530; 82533; 82570; 84156

== ENCOUNTER 2024-05-23 07:36 | Outpatient (CLI) | payer OTHER, SELFPAY ==
--- OUTSIDE RECORDS SUMMARY | 2024-05-23 07:39 | XMS_ITS ---
Author Organization [facility] Address [address] [place] [address] Care Team Providers Care Canvas Baster Jumpbasting Name Role Phone Kandi Damian Primary Care Provider Allergies No Known Allergies REASON FOR VISIT 2 month follow up Medications Medication SIG (Take, Route, Frequency, Duration) Notes Start Date End Date Status dexAMETHasone 1 MG 1 tablet Orally at 10 pm night before 8 am cortisol for 1 days 03/23/2024 Active HumaLOG KwikPen 100 UNIT/ML inject up to 15 units subcutaneously three times daily before meals for 90 days 09/16/2023 Not-Taking Trulicity 4.5 MG/0.5ML inject 4.5 mg subcutaneously once a week for 90 days 11/18/2023 Active Kerendia 10 MG 2 tab(s) orally once a day 06/10/2023 Active HumaLOG KwikPen 100 UNIT/ML up to 20 units subcutaneously three times daily for 90 days 07/23/2023 Not-Taking Icosapent Ethyl 1 G 2 CAP(S) ORALLY 2 TIMES A DAY for 90 DAYS *Please review and pick correct strength-formula tion from [employer] options. If intended option is not shown, discontinue and re-order from Quick Search* 07/01/2023 Active Cyclobenzaprine HCl 5 MG 1 tab(s) orally 3 times a day Active Jardiance 10 MG 1 tab(s) orally once a day (in the morning) for 90 days Active Escitalopram Oxalate 10 MG for 90 Days Active Rosuvastatin Calcium 40 MG 1 tab(s) orally once a day taking 20 mg daily instead Active Synthroid 100 MCG 1 tab(s) orally once a day Active dexAMETHasone 1 MG 1 tablet Orally at 10 pm night before 8 am cortisol for 1 days 03/14/2024 Active metFORMIN HCl ER 500 MG for 90 Days Active Problems Problem Type SNOMED Code ICD Code Onset Dates Problem Status W/U Status Risk Notes Problem Obesity (987238590) Obesity, unspecified (E66.9) Active confirmed Vital Signs Blood pressure systolic 125 mm Hg 03/23/20 24 Blood pressure diastolic 75 mm Hg 024 Heart Rate 85 /min 03/23/2024 Height 67 in 03/23/2024 Weight 188 lbs 03/23/2024 BMI 29.44 kg/m2 03/23/2024 SPO2: 98% Encounters Encounter Location Date Provider Diagnosis [facility] [place] - Kandi Damian [address] [place] [address] 03/23/2024 Kandi Damian Type 2 diabetes nesha itus without complications E11.9 ; Hyperlipidemia, unspecified E78.5 ; Hypothyroidism, unspecified E03.9 ; nursing home (current) use of insulin Z79.4 ; Obesity, unspecified E66.9 and Dietary counseling and surveillance Z71.3 Assessments Encounter Date Diagnosis (ICD Code) Assessment Notes Treatment Notes Treatment Clinical Notes Section Notes 03/23/2024 Type 2 diabetes mellitus without complications (ICD-10 - E11.9) 03/23/2024 Hyperlipidemia, unspecified (ICD-10 - E78.5) 03/23/2024 Hypothyroidism, unspecified (ICD-10 - E03.9) 03/23/2024 nursing home (current) use of insulin (ICD-10 - Z79.4) 03/23/2024 Obesity, unspecified (ICD-10 - E66.9) 03/23/2024 Dietary counseling and surveillance (ICD-10 - Z71.3) 03/23/2024 Other Assessment and Plan: 1. Weight loss and decreased appetite- Continue Trulicity at the maximal dose as it seems to be effective in reducing BMI- Encourage the patient to maintain a healthy diet with fruits, vegetables, and protein 2. Elevated A1c and glucose levels- Continue using the Dash insulin pump system- Adjust basal insulin rates: 1.2 units/hour overnight, 1.3 units/hour during the day- Increase max bolus to 30 units and allow the patient to administer additional insulin as needed for larger meals- Consider changing pods every 2 days if necessary - change to omnipod 5 /automated mode after new year- patient will reach out and let us know with insurance change to submit order - per dexcom/CGM review in range 52% of time and hyperglycemia 46% of time with less than 1% low- she has glucagon for hypoglycemia rescue- she ranges from 72 mg/dL up to 250 mg/dL with average of 168 mg/dL-she has dexcom G7 sensor 3. Elevated triglycerides- Monitor lipid profile and consider adjusting treatment if levels continue to rise 4. Possible scar tissue affecting sensor readings- Encourage the patient to continue using Dexcom and explore different sensor placement sites to improve accuracy 5. Cortisol test- Send prescription for Dexamethasone suppression test to [facility]- Instruct the patient to complete the test to rule out high cortisol levels and potential treatment options 6. Thyroid function- Continue Synthroid 100 mcg daily as thyroid levels are within the normal range 7. Blood pressure- No intervention needed as blood pressure is well-controlled (125/75) 8. Referral to a new field recruiter- Recommend Dr. Ayana Brunner in [facility] for rheumatology consultation Spent 15 minutes preventative counseling patient on dietary recommendations and changes in setting of hyperglycemia/weigh t management and concern for hypercortisolism- need to restrict refined sugars and processed foods and incorporate up to 150 minutes of moderate level activity weekly. Spent 25 minutes preparing to see the patient (ex review of tests/chart), obtaining and / or reviewing separately obtained history, performing a medically appropriate examination and/or evaluation, counseling and educating the patient/family/lead caregiver, ordering medications, tests, or procedures, referring and communicating with other health home care and home health aides teacher, documenting clinical information in the electronic or other health record, independently interpreting results and communicating results to the patient/family/lead caregiver and care coordinating patient plan. Patient alert and oriented x 4 and aware of discussion noted above and in agreeance to plan in management of type 2 DM, hypothyroidsim, weight management and hyperlipidemia. Plan Of Treatment Medication Medication Name Sig Start Date Stop Date Notes dexAMETHasone 1 MG 1 tablet Orally at 1 0 pm night before 8 am cortisol for 1 days 03/23/2024 Treatment Notes Assessment Notes Other Assessment and Plan: 1. Weight loss and decreased appetite- Continue Trulicity at the maximal dose as it seems to be effective in reducing BMI- Encourage the patient to maintain a healthy diet with fruits, vegetables, and protein 2. Elevated A1c and glucose levels- Continue using the Dash insulin pump system- Adjust basal insulin rates: 1.2 units/hour overnight, 1.3 units/hour during the day- Increase max bolus to 30 units and allow the patient to administer additional insulin as needed for larger meals- Consider changing pods every 2 days if necessary - change to omnipod 5 /automated mode after new year- patient will reach out and let us know with insurance change to submit order - per dexcom/CGM review in range 52% of time and hyperglycemia 46% of time with less than 1% low- she has glucagon for hypoglycemia rescue- she ranges from 72 mg/dL up to 250 mg/dL with average of 168 mg/dL-she has dexcom G7 sensor 3. Elevated triglycerides- Monitor lipid profile and consider adjusting treatment if levels continue to rise 4. Possible scar tissue affecting sensor readings- Encourage the patient to continue using Dexcom and explore different sensor placement sites to improve accuracy 5. Cortisol test- Send prescription for Dexamethasone suppression test to [facility]- Instruct the patient to complete the test to rule out high cortisol levels and potential treatment options 6. Thyroid function- Continue Synthroid 100 mcg daily as thyroid levels are within the normal range 7. Blood pressure- No intervention needed as blood pressure is well-controlled (125/75) 8. Referral to a new field recruiter- Recommend Dr. Ayana Brunner in [facility] for rheumatology consultation Spent 15 minutes preventative counseling patient on dietary recommendations and changes in setting of hyperglycemia/weight management and concern for hypercortisolism- need to restrict refined sugars and processed foods and incorporate up to 150 minutes of moderate level activity weekly. Spent 25 minutes preparing to see the patient (ex review of tests/chart), obtaining and / or reviewing separately obtained history, performing a medically appropriate examination and/or evaluation, counseling and educating the patient/family/caregiver, ordering medications, tests, or procedures, referring and communicating with other health home care and home health aides teacher, documenting clinical information in the electronic or other health record, independently interpreting results and communicating results to the patient/family/caregiver and care coordinating patient plan. Patient alert and oriented x 4 and aware of discussion noted above and in agreeance to plan in management of type 2 DM, hypothyroidsim, weight management and hyperlipidemia. Next Appt Details Follow Up: 2 Months, Reason: labwork Provider Name:Kandi Damian, 09:40:00 AM, [address] , [place], [address], Progress Notes * Zehra SETHIOB:1960 ( 63 yo F)Acc No.[id number]:03/23/2024 Progress Notes Patient: Chrissie SHORT Provider: Avelino Damian MD :[id number] A ge:63 Y S ex:Female Date:03/23/2024 Address:[address] [place], [place] [id number] Subjective: * Chief Complaints: * 1 . 2 month follow up. * HPI: Gilberto iabetes: 63 yo female comes in for follow up in management of type 2 DM (A1C of 8.6% up from 8%), hypothyroidism, dyslipidemia. last seen in Jan at that time we increased her basal setting to 1.1 u/hr at night and 1.2 u/hr during day we continued synthroid 100 mcg daily for hypothyroidism we continued rosuvastatin and fish oil for mixed dyslipidemia Chrissie, a patient with Type 2 Diabetes and Hypothyroidism, reports unintentional weight loss and decreased appetite. Despite being on the maximal dose of Trulicity and using the Dash insulin pump, her A1c and blood glucose levels have been increasing. She also notes higher glucose readings in certain sensor placements, possibly due to scar tissue. Her triglycerides have risen to 177 mg/dL, while her LDL remains under 70 mg/dL. Adjustments to her insulin regimen and further monitoring of her lipid profile were discussed. A prescription for a Dexamethasone suppression test will be sent to rule out high cortisol levels. Patient reports unintentional weight loss due to decreased appetite. She is currently on Trulicity at the maximal dose of 4 mg, which was increased a couple of months ago. Her BMI is now under 30, but her A1c has been increasing. She is using the Dash insulin pump system. Patient notes that her blood glucose tends to be higher when she places her sensor in certain areas, possibly due to scar tissue. She reports morning blood glucose levels of 132 mg/dL, which can increase to 150-180 mg/dL even without eating. Her recent lab work showed a blood glucose of 179 mg/dL. She sometimes requires more than 20 units of insulin for large meals, occasionally administering up to 30 units. Patient mentions that her triglycerides have increased from 150 to 177 mg/dL. Her LDL is under 70 mg/dL. Medical History - Type 2 Diabetes - Hypothyroidism Current and Past Medications and Supplements - Trulicity 4mg - Insulin (via Omnipod Dash insulin pump) - Synthroid 100mcg - B12 supplement (tablet form) Social History - Living situation: lives with spouse - Diet: reports being a dessert person - Social support: family gathering planned for [place] dinner on March 28 - Pets: owns a 13-year-old dog, planning to get a new Schnauzer puppy Review of Systems - Constitutional: Unintentional weight loss, decreased appetite - Endocrine: Blood sugar fluctuations, goes up to 150-180 sometimes even without eating - Musculoskeletal: Reports pain (unspecified location) - Sleep: Dog waking patient up at night (external factor affecting sleep). * ROS: U ROLOGY: no d ifficulty urinating. n o b lood in urine. n o u rinary urgency. n o f requent urination. n o u rinary incontinence. n o v oiding dysfunction. n o v ulvodynia. n o d ysparaunia. n o r ecurrent UTI. n o w eak flow. n o d ribbling after urination. n o f requent bladder infections. n o k idney stone. n o k idney disease. n o u rine hesitancy.?no p ainful urination. N UTRITION: greater than body requirmemts y es. L ess than body requirements y es. a ppropriate / adequate y es, y es. C ONSTITUTIONAL: no w eight gain. n o l oss of appetite. n o?fever. n o w eakness. n o w eight loss. n o n ight sweats. n o n ausea. n o v isual changes. n o c hange in sleep patterns. h +p reviewed y es, R OS form reviewed with patient see scan for detail. n o c hange in activity capacity.? D ERMATOLOGY: no r cate. n o c hange in color of moles. n o?lumps. d ry or sensitive skin y es. n o h doyle. n o o lincoln skin. n o?acne. n o m oles-irregular. n o m oles-change/new. n o b oils. n o dandruff. n o e xcessive body odor. n o p soriasis. n o f ungal infections. n o n ail problems. n o r edness/inflammation. n o a thlete's foot. n o s kin cancer. n o e czema. E NDOCRINOLOGY: no f atigue. n o e xcessive sweating. n o e xcessive thirst. n o e xcessive urination. n o w eight loss. n o s leep disturbance. n o c old intolerance. n o h eat intolerence. n o t hyroid disease. n o i ncreased loss of hair. n o h x of borderline diabetes. d iabetes y es. n o a bdormal body hair. n o r heumatism. n o c hanges in skin texture.? N EUROLOGY: no h eadache. n o t ingling numbness. n o s eizures. n o i nsomnia. n o m aixa loss. n o d izziness. n o g ait abnormality. n o c hange in sensation anywhere on body. n o l ocalized weakness or numbness. n o b lackouts or near blackouts. n o m igraine. n o t remors.?no f ainting spells. n o h ead injury. n o s troke. O PTHALMOLOGY: no d iminished vision. n o e ye irritation. n o?drainage from eyes. n o b lurring of vision. n o s easonal eye sx. n o?dander related eye sx. n o l oss of vision. n o c ataracts. n o g lasses/contacts. n o g laucoma. n o d etached retina. n o m acular degeneration.?no e ye redness. R ESPIRATORY: no s hortness of breath. n o c hest pain. n o?wheezing. n o a sthma. n o b reathlessness when lying flat. n o p rolonged cough. n o f requent infections (bronchitis). n o e mphysema. n o c hest congestion. n o s leep apnea. A LLERGY: no r unny nose. n o s cratchy throat. n o i tchy eyes. n o e ar fullness. n o s inus congestion. n o s tuffy nose. n o w atery eyes. n o s easonal allergies. n o h ay fever. n o a llergy.?no p olyps. n o s neezing. H EMATOLOGY/LYMPH: no s wollen glands. n o f atigue. n o l oss of appetite. n o e asy bruising. n o e asy bleeding. n o a nemia. ? E NT: no c old. n o c ough. n o c oughing blood.?no n ose bleed. n o h earing loss. n o c hange in voice. n o s ore throat. n o r inging in ears. n o s noring. n o e ar pain. n o r unny nose. n o w atery eyes. n o s inus infection. n o e ar infection. n o facial pain. n o h oarseness. n o g oiter. n o g um problems. n o?postnasal drip. n o f requent nosebleeds. C ARDIOLOGY: no c hest pain. n o p alpitations. n o l eg swelling. n o d izziness. n o s hortness of breath. n o v aricose veins.?no l eg cramps. n o c old hands or feet. h igh blood pressure y es. n o ankle swelling. n o c ardiac catheterization. n o h eart attacks. n o a ngina. n o m urmurs. n o l ow blood pressure. n o l eg pain that resolves w/rest. n o p urple fingers or lips. n o i rregular heart rate. n o c ongenital heart defects. n o d izziness when standing up quickly. n o a wakening at night short of breath. G ASTROENTEROLOGY: no n ausea. h eartburn y es. n o s tool incontinence. n o r eflux. n o a bdominal pain. n o i ndigestion. n o h emorrhoids. n o h iatal hernia. n o u lcers. n o a nal fissures. n o?hepatitis. n o g allstones. n o r ed blood after bowel movements. n o v omiting. n o b loating/belching. n o d ifficulty swallowing. n o d iarrhea.?no c onstipation. n o c hange in bowel habits. n o b lood in stool. ? M USCULOSKELETAL: joint swelling y es. j oint pain y es. n o l eg cramps. n o j oint stiffness. a rthritis y es. b ack pain y es. m uscle aches y es. n o m orning stiffness. n o t endinitis. n koki pain y es. n o b ursitis. n o b one marrow biopsy. n o g out. a ctivity intolerance w eakness. n o f racture. P SYCHOLOGY: no h igh stress level. n o d epression. n o?sleep disturbances. n o r esdras sx worse with stress. n o s uicidal ideation. n o e ating disorder. n o m ental or physical abuse. n o a nxiety. n o h eadaches. d isease state y es. F EMALE REPRODUCTIVE: no h eavy periods. n o d ysparaunia. n o s exually active. n o p remenstrual syndrome. n o d ysmenorrhea. n o i nfertility. n o f requent yeast infections. n o v aginal itching. n o i ntermenstrual bleeding. n o p ost coital bleeding. n o p ostmenopausal bleeding. n o p elvic pain. n o m enstral cycle. n o v aginal discharge. n o v aginal dryness. n o o varian cysts. n o f ibroids. n o d ischarge from breast. n o abn. bleeding between cycles. n o p ostmenopausal symptoms. n o l oss of sexual interest. n o p ainful sexual intercourse. n o e ndometriosis. n o v aginal warts. n o a bnormal pap. n o i rregular periods. n o a bnormal vaginal discharge. n o h ot flashes. K idney Disease- Yes. * Medical History: t ype 2 DM, Dyslipidemia, Hypertension, Rheumatoid arthritis. * Medications: T aking dexAMETHasone 1 MG Tablet 1 tablet Orally at 10 pm night before 8 am cortisol , Taking Synthroid(Levothyroxine Sodium) 100 MCG Tablet 1 tab(s) orally once a day , Taking metFORMIN HCl ER 500 MG Tablet Extended Release 24 Hour , Taking Icosapent Ethyl 1 G CAPSULE 2 CAP(S) ORALLY 2 TIMES A DAY , Notes to Pharmacist: *Please review and pick correct strength-formulation from [employer] options. If intended option is not shown, discontinue and re-order from Quick Search*, Taking Jardiance(Empagliflozin) 10 MG Tablet 1 tab(s) orally once a day (in the morning) , Taking Cyclobenzaprine HCl 5 MG Tablet 1 tab(s) orally 3 times a day , Taking Rosuvastatin Calcium 40 MG Tablet 1 tab(s) orally once a day , Notes to Pharmacist: taking 20 mg daily instead, Taking Escitalopram Oxalate 10 MG Tablet , Taking Kerendia(Finerenone) 10 MG Tablet 2 tab(s) orally once a day , Taking Trulicity(Dulaglutide) 4.5 MG/0.5ML Solution Auto-injector inject 4.5 mg subcutaneously once a week , Not-Taking/PRN HumaLOG KwikPen(Insulin Lispro (1 Unit Dial)) 100 UNIT/ML Solution Pen-injector up to 20 units subcutaneously three times daily , Not-Taking/PRN HumaLOG KwikPen(Insulin Lispro (1 Unit Dial)) 100 UNIT/ML Solution Pen-injector inject up to 15 units subcutaneously three times daily before meals , Medication List reviewed and reconciled with the patient * Allergies: N .K.D.A. Objective: * Vitals: H R: 85, BP: 125/75, Ht: 67, Wt: 188, BMI: 29.44. SPO2: 98%. * P ast Orders: Lab:LIPID PANEL * Collection Date 03/09/2024 01/20/2024 Collection Time 08:58 AM 09:09 AM Order Date 03/09/2024 01/20/2024 TRIGLYCERIDES 177 H (Ref Range: <150 mg/dL) 151 H (Ref Range: <150 mg/dL) CHOLESTEROL, TOTAL 140 (Ref Range: <200 mg/dL) 133 (Ref Range: <200 mg/dL) HDL CHOLESTEROL 46 L (Ref Range: > OR = 50 mg/dL) 43 L (Ref Range: > OR = 50 mg/dL) LDL-CHOLESTEROL 69 (Ref Range: mg/dL (calc)) 67 (Ref Range: mg/dL (calc)) CHOL/HDLC RATIO 3.0 (Ref Range: <5.0 (calc)) 3.1 (Ref Range: <5.0 (calc)) NON-HDL CHOLESTEROL 94 (Ref Range: <130 mg/dL (calc)) 90 (Ref Range: <130 mg/dL (calc)) ???Lab:MICROALBUMIN, RANDOM URINE (W/CREATININE) (Order Date - 03/09/2024) (Collection Date & Time- 03/09/2024 08:58 AM)?ValueReference Range ?CREATININE, RANDOM [id number] - mg/dL?MICROALBUMIN0.9See Note: - mg/dL?MICROALBUMIN/CREATININE$RATIO, RANDOM URINE13<30 - mg/g creat ???Lab:HEMOGLOBIN A1c (Order Date - 03/09/2024) (Collection Date & Time - 03/09/2024 08:58 AM)?ValueReference Range?HEMOGLOBIN A1c8.6H<5.7 - % of total Hgb ???Lab:T4, FREE (Order Date - 03/09/2024) (Collection Date & Time - 03/09/2024 08:58 AM)?ValueReference Range?T4, FREE1.10.8-1.8 - ng/dL ???Lab:T3, FREE (Order Date - 03/09/2024) (Collection Date & Time - 03/09/2024 08:58 AM)?ValueReference Range?T3, FREE3.12.3-4.2 - pg/mL ???Lab:VITAMIN D, 25-HYDROXY, LC/MS/MS (Order Date - 03/09/2024) (Collection Date & Time - 03/09/2024 08:58 AM)?ValueReference Range?VITAMIN D, 25-OH, [id number] - ng/mL ???Lab:VITAMIN B12/FOLATE, SERUM PANEL (Order Date - 03/09/2024) (Collection Date & Time - 03/09/2024 08:58 AM)?ValueReference Range?FOLATE, SERUM20.2- ng/mL?VITAMIN B12>[id number] - pg/mL ???Lab:TSH (Order Date - 03/09/2024) (Collection Date & Time - 03/09/2024 08:58 AM)?ValueReference Range?TSH1.730.40-4.50 - mIU/L ???Lab:COPY(IES) SENT TO: (Order Date - 03/09/2024) (Collection Date & Time - 03/09/2024 08:58 AM) ???Lab:THYROID PEROXIDASE ANTIBODIES (Order Date - 03/09/2024) (Collection Date & Time - 03/09/2024 08:58 AM)?ValueReference Range?THYROID PEROXIDASE ANTIBODIES<1<9 - IU/mL ???Lab:CBC (INCLUDES DIFF/PLT) (Order Date - 03/09/2024) (Collection Date & Time - 03/09/2024 08:58 AM)?ValueReference Range?WHITE BLOOD CELL COUNT 5.03.8-10.8 - Thousand/uL?RED BLOOD CELL COUNT4.853.80-5.10 - Million/uL ?EJXLTEFWOY67.511.7-15.5 - g/dL?SLETQZKPUE89.535.0-45.0 - % ?MCV89.780.0-100.0 - fL?MCH29.927.0-33.0 - pg?MCHC33.332.0- 36.0 - g/dL?RDW12.211.0-15.0 - %?PLATELET [id number] - Thousand/uL?ENDSQNSQWPT02.9- %?ABSOLUTE [id number] - cells/uL?UNDKPROSJQS23.9- %?ABSOLUTE [id number] - cells/uL?MONOCYTES8.0- %?ABSOLUTE RPQNYZLLO110101-915 - cells/uL ?EOSINOPHILS3.0- %?ABSOLUTE NZTTOVTPPKQ24798-488 - cells/uL ?BASOPHILS1.2- %?ABSOLUTE DXVBHHBFC669-682 - cells/uL?MPV 9.77.5-12.5 - fL ???Lab:COMPREHENSIVE METABOLIC PANEL (Order Date - 03/09/2024) (Collection Date & Time - 03/09/2024 08:58 AM)?ValueReference Range?BBSCMXF796K20- 99 - mg/dL?UREA NITROGEN (BUN)117-25 - mg/dL?CREATININE0.770.50- 1.05 - mg/dL?BUN/CREATININE RATIOSEE NOTE:6-22 - (calc)?EBAROD982 135-146 - mmol/L?POTASSIUM4.13.5-5.3 - mmol/L?JRMTSPDL83318-940 - mmol/L?CARBON MNSQNKB7340-08 - mmol/L?CALCIUM9.78.6-10.4 - mg/dL ?PROTEIN, TOTAL7.16.1-8.1 - g/dL?ALBUMIN4.13.6-5.1 - g/dL ?GLOBULIN3.01.9-3.7 - g/dL (calc)?ALBUMIN/GLOBULIN RATIO1.41.0-2.5 - (calc)?BILIRUBIN, TOTAL0.70.2-1.2 - mg/dL?ALKALINE YBQPVYNQIWP97 37-153 - U/L?LDB2581-98 - U/L?PHW295-46 - U/L?EGFR87> OR = 60 - mL/min/1.73m2 ???Lab:ACTH, PLASMA (Order Date - 01/20/2024) (Collection Date & Time - 01/20/2024 09:09 AM)?ValueReference Range?ACTH, [id number] - pg/mL ???Lab:DHEA SULFATE (Order Date - 01/20/2024) (Collection Date & Time - 01/20/2024 09:09 AM)?ValueReference Range?DHEA RTNSABW6U7-126 - mcg/dL * Examination: G eneral Examination: General n ormal, NAD, well nourished and hydrated, pleasant. Neck, thyroid : s upple. Heart: B P wnl, RSR, no murmurs. Lungs: n ormal, respirations easy with conversation and ambulation. Abdomen: n ormal, round, non-distended. Neurologic exam: u nremarkable. Extremities: u nremarkable. Peripheral pulses: n ormal (2+) bilaterally . Psych: o rientation to person, place & situation, appropriate judgment noted. Assessment: * Assessment: 1. T ype 2 diabetes mellitus without complications - E11.9 (Primary) 2 . H yperlipidemia, unspecified - E78.5 3 . H ypothyroidism, unspecified - E03.9 4 . L rose marie term (current) use of insulin - Z79.4 5 . O besity, unspecified - E66.9 6 . D ietary counseling and surveillance - Z71.3 ? Plan: * Treatment: 2. O thers Notes:Assessment and Plan: 1. Weight loss and decreased appetite- Continue Trulicity at the maximal dose as it seems to be effective in reducing BMI- Encourage the patient to maintain a healthy diet with fruits, vegetables, and protein 2. Elevated A1c and glucose levels- Continue using the [employer] insulin pump system- Adjust basal insulin rates: 1.2 units/hour overnight, 1.3 units/hour during the day- Increase max bolus to 30 units and allow the patient to administer additional insulin as needed for larger meals- Consider changing pods every 2 days if necessary - change to omnipod 5 /automated mode after new year- patient will reach out and let us know with insurance change to submit order - per dexcom/CGM review in range 52% of time and hyperglycemia 46% of time with less than 1% low- she has glucagon for hypoglycemia rescue- she ranges from 72 mg/dL up to 250 mg/dL with average of 168 mg/dL-she has dexcom G7 sensor 3. Elevated triglycerides- Monitor lipid profile and consider adjusting treatment if levels continue to rise 4. Possible scar tissue affecting sensor readings- Encourage the patient to continue using Dexcom and explore different sensor placement sites to improve accuracy 5. Cortisol test- Send prescription for Dexamethasone suppression test to [place] [facility]- Instruct the patient to complete the test to rule out high cortisol levels and potential treatment options 6. Thyroid function- Continue Synthroid 100 mcg daily as thyroid levels are within the normal range 7. Blood pressure- No intervention needed as blood pressure is well-controlled (125/75) 8. Referral to a new field recruiter- Recommend Dr. Ayana Brunner in [facility] for rheumatology consultation Spent 15 minutes preventative counseling patient on dietary recommendations and changes in setting of hyperglycemia/weight management and concern for hypercortisolism- need to restrict refined sugars and processed foods and incorporate up to 150 minutes of moderate level activity weekly. Spent 25 minutes preparing to see the patient (ex review of tests/chart), obtaining and / or reviewing separately obtained history, performing a medically appropriate examination and/or evaluation, counseling and educating the patient/family/caregiver, ordering medications, tests, or procedures, referring and communicating with other health home care and home health aides teacher, documenting clinical information in the electronic or other health record, independently interpreting results and communicating results to the patient/family/caregiver and care coordinating patient plan. Patient alert and oriented x 4 and aware of discussion noted above and in agreeance to plan in management of type 2 DM, hypothyroidsim, weight management and hyperlipidemia. * Procedure Codes: 9 9401 P/M WINDER TENDER, INDIV 15 MIN, 80330 GLUCOSE MONITORING, CONT * Follow Up: 2 Months (Reason: labwork) * Billing Information: * Visit Code: 09916 Office Visit, Est Pt., Level 4. * Procedure Codes: 72170 P/M WINDER TENDER, INDIV 15 MIN. 75467 GLUCOSE MONITORING, CONT. * NG MAKER Sign off status: Completed true * Provider: Avelino Damian MD Date: 05/24/2023 Generated for Kala sheikh/Radha/eTadielsmitting on: 0 05/23/2024 07:39 AM AWNING MAKER History and Physical Notes * HPI (History of Present Illness) Category Sub-Category Detail Notes Category Not es Diabetes 63 yo female comes in for follow up in management of type 2 DM (A1C of 8.6% up from 8%), hypothyroidism, dyslipidemia. last seen in Jan at that time we increased her basal setting to 1.1 u/hr at night and 1.2 u/hr during day we continued synthroid 100 mcg daily for hypothyroidism we continued rosuvastatin and fish oil for mixed dyslipidemia Chrissie, a patient with Type 2 Diabetes and Hypothyroidism, reports unintentional weight loss and decreased appetite. Despite being on the maximal dose of Trulicity and using the Dash insulin pump, her A1c and blood glucose levels have been increasing. She also notes higher glucose readings in certain sensor placements, possibly due to scar tissue. Her triglycerides have risen to 177 mg/dL, while her LDL remains under 70 mg/dL. Adjustments to her insulin regimen and further monitoring of her lipid profile were discussed. A prescription for a Dexamethasone suppression test will be sent to rule out high cortisol levels. Patient reports unintentional weight loss due to decreased appetite. She is currently on Trulicity at the maximal dose of 4 mg, which was increased a couple of months ago. Her BMI is now under 30, but her A1c has been increasing. She is using the Dash insulin pump system. Patient notes that her blood glucose tends to be higher when she places her sensor in certain areas, possibly due to scar tissue. She reports morning blood glucose levels of 132 mg/dL, which can increase to 150-180 mg/dL even without eating. Her recent lab work showed a blood glucose of 179 mg/dL. She sometimes requires more than 20 units of insulin for large meals, occasionally administering up to 30 units. Patient mentions that her triglycerides have increased from 150 to 177 mg/dL. Her LDL is under 70 mg/dL. Medical History - Type 2 Diabetes - Hypothyroidism Current and Past Medications and Supplements - Trulicity 4mg - Insulin (via Omnipod Dash insulin pump) - Synthroid 100mcg - B12 supplement (tablet form) Social History - Living situation: lives with spouse - Diet: reports being a dessert person - Social support: family gathering planned for [employer] dinner on March 28 - Pets: owns a 13-year-old dog, planning to get a new [employer] puppy Review of Systems - Constitutional: Unintentional weight loss, decreased appetite - Endocrine: Blood sugar fluctuations, goes up to 150-180 sometimes even without eating - Musculoskeletal: Reports pain (unspecified location) - Sleep: Dog waking patient up at night (external factor affecting sleep) Examination Category Sub-Category Detail Notes Category Not es General Examination Neck, thyroid : supple Heart: BP wnl, RSR, no murm urs Lungs: normal, respirations easy with conversation and ambulation Abdomen: normal, round, non-d istended Extremities: unremarkable General normal, NAD, well no urished and hydrated, pleasant Neurologic exam: unremarkable Peripheral pulses: normal (2+) bilatera lly Psych: orientation to perso n, place & situation, appropriate judgment noted
--- OUTSIDE RECORDS SUMMARY | 2024-05-23 07:39 | XMS_ITS | Patient Health Summary ---
Author Organization [facility] Address [address] [place] [address] Care Team Providers Care Wellness Consultant Name Role Phone Brandie Hare MD Primary Care Provider [phone] Isaiah Aguilar MD Unavailable Unavailable Note from [facility],non-owned Affiliates and Associated Physician Practices is amultiple site organization consisting of ambulatory clinics and hospital sitesin [place], [place], [place] and [place]. This disclosure is being madepursuant to the Care Everywhere program and may not contain all information available regarding this patient. Last updated 17.[facility] Allergies No known active allergies Medications * Be aware that medications may not be up to date on this document. Alwaysverify current medications with the patient. * metformin (GLUCOPHAGE) 500 MG tablet Take 1,000 mg by mouth once daily. * lisinopril (PRINIVIL; ZESTRIL) 10 MG tablet Take 10 mg by mouth daily. * MULTI-VITAMIN PO Take by mouth. * SUMAtriptan (IMITREX) 50 MG tablet Take 50 mg by mouth once as needed. * Atorvastatin Calcium (LIPITOR PO) Take by mouth. * etanercept (ENBREL SURECLICK) 50 MG/ML injection(Started 01/06/2014) Inject 1 mL subcutaneously every 7 days. 12 refills left * meloxicam (MOBIC) 7.5 MG tablet(Started 01/06/2014) Take 1-2 Tabs by mouth once daily. for 7 days to treat flare ups of pain and inflammation Repeat asneeded or call Dr Aguilar if not better 3 refills left * omeprazole (PRILOSEC) 40 MG capsule(Started 03/09/2014) Take 1 Cap by mouth daily before breakfast. 3 refills left * traMADol (ULTRAM) 50 MG tablet(Started 09/20/2014) Take 1 Tab by mouth 3 times daily with over the counter Tylenol for daily pain 3 refills left * sitaGLIPtin (JANUVIA) 100 MG tablet Take 100 mg by mouth once daily * adalimumab (HUMIRA PEN) 40 MG/0.8ML injection(Started 12/20/2014) Inject 0.8 mL subcutaneously every 7 days 11 refills left Active Problems Problem Noted Date Diagnosed Date High risk medications (not anticoagulants) long- term use 01/05/2010 Chronic bronchitis 07/08/2009 GERD (gastroesophageal reflux disease) 0 Rheumatoid arthritis 07/09/2008 Abnormal liver function tests 07/09/2008 High blood cholesterol 07/09/2008 Encounter for long-term (current) use of NSAIDs 07/09/2008 Resolved Problems Problem Noted Date Diagnosed Date Resolved Date Back pain 07/09/2008 01/06/2014 Carpal tunnel syndrome 03/10/200801/06 Social History Tobacco Use Types Packs/Day Years Used Date Smoking Tobacco: Never Smokeless Tobacco: Never Alcohol Use Standard Drinks/Week Comments Yes 0.8 (1 standard drink = 0.6 oz p ure alcohol) occ Sex and Gender Information Value Date Recorded Sex Assigned at Not on file Gender Identity Not on file Sexual Orientation Not on file Last Filed Vital Signs Vital Sign Reading Time Taken Comments Blood Pressure 112/70 12/16/2014 1:14 PM CDT Pulse 74 12/16/2014 1:14 PM CDT Temperature - - Respiratory Rate 18 09/01/2010 1:15 PM CDT Oxygen Saturation 97% 09/01/2010 1:15 PM CDT Inhaled Oxygen Concentration - - Weight 90.3 kg (199 lb) 12/16/2014 1:14 PM CDT Height 175.3 cm (5' 9 ) 12/16/2014 1:14 PM CDT Body Mass Index 29.39 12/16/2014 1:14 PM CDT Procedures * LAB RESULTS ORDER(Performed 06/28/2022) * LAB RESULTS ORDER(Performed 06/28/2022) * LAB RESULTS ORDER(Performed 06/28/2022) * LAB RESULTS ORDER(Performed 06/28/2022) * LAB RESULTS ORDER(Performed 11/03/2021) * LAB RESULTS ORDER(Performed 11/02/2021) * COMPREHENSIVE METABOLIC PANEL(Performed 12/16/2014) Performed for High risk medications (not anticoagulants) long-term use * CBC W AUTO DIFFERENTIAL(Performed 12/16/2014) Performed for High risk medications (not anticoagulants) long-term use * US EXTREMITY RIGHT COMP JOINT(Performed 01/06/2014) Performed for Rheumatoid Arthritis (Hcc) * US EXTREMITY LEFT COMP JOINT(Performed 01/06/2014) Performed for Rheumatoid Arthritis (Hcc) * US EXTREMITY RIGHT LTD NONVASC(Performed 01/06/2014) Performed for Achilles tendonitis, right * LAB RESULTS ORDER(Performed 05/16/2013) * US EXTREMITY LEFT COMP JOINT(Performed 12/31/2012) Performed for Rheumatoid arthritis (HCC) * US EXTREMITY NON VASCULAR RIGHT(Performed 12/31/2012) Performed for Rheumatoid arthritis (HCC) * LAB RESULTS ORDER(Performed 12/17/2012) * LAB RESULTS ORDER(Performed 12/17/2012) * LAB RESULTS ORDER(Performed 06/28/2012) * C-REACTIVE PROTEIN(Performed 01/11/2012) Performed for Rheumatoid arthritis (HCC) * COMPREHENSIVE METABOLIC PANEL(Performed 01/11/2012) Performed for LFT's Abnormal, Encounter for long-term (current) use of NSAIDs * CBC W AUTO DIFFERENTIAL(Performed 01/11/2012) Performed for Encounter for long-term (current) use of NSAIDs * LAB RESULTS ORDER(Performed 10/12/2011) * LAB RESULTS ORDER(Performed 01/13/2011) * LAB RESULTS ORDER(Performed 10/21/2010) * CARDIAC RHYTHM STRIP ORDER(Performed 09/07/2010) * IR US GUIDE NEEDLE PLACEMENT(Performed 09/01/2010) Performed for Abnormal blood chemistry * CT ABDOMEN WO CONTRAST(Performed 09/01/2010) Performed for Abnormal blood chemistry * CBC W AUTO DIFFERENTIAL(Performed 09/01/2010) * PT PTT PANEL(Performed 09/01/2010) * GROSS + MICRO EXAM(Performed 09/01/2010) * LAB RESULTS ORDER(Performed 06/24/2010) * LAB RESULTS ORDER(Performed 02/25/2010) * LAB RESULTS ORDER(Performed 12/30/2009) * C-REACTIVE PROTEIN(Performed 03/23/2008) * COMPREHENSIVE METABOLIC PANEL(Performed 03/23/2008) * CBC W AUTO DIFFERENTIAL(Performed 03/23/2008) * GROSS + MICRO EXAM(Performed 04/24/2005) Results * LAB RESULTS ORDER (06/28/2022) Only the most recent of16 resultswithin the time period is included. 06/28/2022 Narrative 06/28/2022 Ordered by an unspecified provider. Scanned Document LAB - THERAPEUTIC DR MANUEL MONITORING ORDERABLES * (ABNORMAL) CBC W AUTO DIFFERENTIAL (12/16/2014 1:56 PM CDT) Only the most recent of4 resultswithin the time period is included. WBC 6.8 4.4 - 10.7 x10E9/L [facility] INSURANCE BILL RBC 4.88 3.80 - 5.20 x10E12/L [facility] INSURANCE BILL Hemoglobin 14.8 12.0 - 15.6 gm/dL [facility] INSURANCE BILL Hematocrit 45.3 35.9 - 45.5 % [facility] INSURANCE BILL MCV 92.8 80.7 - 98.3 fL [facility] INSURANCE BILL MCH 30.3 26.7 - 34.0 pg [facility] INSURANCE BILL MCHC 32.7 30.8 - 35.9 gm/dL [facility] INSURANCE BILL RDW 12.3 12.1 - 14.9 % [facility] INSURANCE BILL Platelet Count 360 153 - 416 x10E9/L [facility] INSURANCE BILL Comment:MPV FL BLOOD (SSM) 1 0.0 fl 9.4-12.9 Granulocytes % 36.6(L) 44.0 - 73.0 % [facility] INSURANCE BILL Lymphocytes % 53.8(H) 20.0 - 43.0 % [facility] INSURANCE BILL Monocytes % 8.0 5.0 - 13.0 % [facility] INSURANCE BILL Eosinophils % 0.9 0.0 - 6.0 % [facility] INSURANCE BILL Basophils % 0.6 0.0 - 2.0 % [facility] INSURANCE BILL Granulocytes Absolute 2.48 2.01 - 7.14 x10E9/L [facility] INSURANCE BILL Lymphocytes Absolute 3.64 1.07 - 3.94 x10E9/L [facility] INSURANCE BILL Monocytes Absolute 0.54 0.26 - 1.07 x10E9/L [facility] INSURANCE BILL Eosinophils Absolute 0.06 0 - 0.47 x10E9/L [facility] INSURANCE BILL Basophils Absolute 0.04 0 - 0.08 x10E9/L [facility] INSURANCE BILL Immature Granulocytes 0.1 0 - 1 % [facility] INSURANCE BILL Immature Granulocytes Absolute 0.01 0.00 - 0.06 x10E9/L [facility] INSURANCE BILL nRBC 0 /100 WBC [facility] INSURANCE BILL Blood specimen (specimen) BLOOD SPECIMEN / Unknown 12/16/2014 1:56 PM CDT 12/16/2014 6:28 PM CDT Narrative Resulting Agency Comment [facility] [id number] [place] [id number] Isaiah Aguilar MD LAB - HEMATOLOGY ORD ERABLES [facility] INSURANCE BILL * (ABNORMAL) COMPREHENSIVE METABOLIC PANEL (12/16/2014 1:56 PM CDT) Only the most recent of3 resultswithin the time period is included. Glucose 169(H) 74 - 106 mg/dL [facility] INSURANCE BILL BUN 14 7 - 21 mg/dL [facility] INSURANCE BILL Creatinine 1.10 0.50 - 1.30 mg/dL [facility] INSURANCE BILL eGFR by MDRD 52(L) >60 mL/min/1.7 3m2 [facility] INSURANCE BILL eGFR by MDRD >60 >60 mL/min/1.7 3m2 [facility] INSURANCE BILL Sodium 135(L) 136 - 145 mmol/L [facility] INSURANCE BILL Potassium 4.2 3.5 - 5.1 mmol/L [facility] INSURANCE BILL Chloride 99 98 - 107 mmol/L [facility] INSURANCE BILL CO2 29 22 - 31 mmol/L [facility] INSURANCE BILL Calcium 9.7 8.5 - 10.1 mg/dL [facility] INSURANCE BILL Protein Total 7.6 6.4 - 8.2 gm/dL [facility] INSURANCE BILL Albumin 4.3 3.4 - 5.0 gm/dL [facility] INSURANCE BILL Bilirubin Total 1.4(H) 0.2 - 1.0 mg/dL [facility] INSURANCE BILL Alkaline Phosphatase 94 38 - 126 U/L [facility] INSURANCE BILL AST 64(H) 5 - 40 U/L [facility] INSURANCE BILL ALT 130(H) 12 - 78 U/L [facility] INSURANCE BILL Blood specimen (specimen) BLOOD SPECIMEN / Unknown 12/16/2014 1:56 PM CDT 12/16/2014 6:28 PM CDT Narrative Resulting Agency Comment [facility] [address] [place] [id number] Isaiah Aguilar MD LAB - CHEMISTRY HALINA DIXON [facility] INSURANCE BILL * US EXTREM RIGHT CMPLT NONVASC (01/06/2014 5:20 PM CDT) Only the most recent of2 resultswithin the time period is included. Anatomical Region Laterality Modality Other Narrative 01/06/2014 5:20 PM CDT Isaiah Aguilar MD 01/06/2014 5:20 PM Bilateral Hand Ultrasound Protocol: Complete Bilateral Hand Study for RA Activity and Median nerve dimensions using MyLab5 with a 438 probe at 18mHz or [employer] M7 with a L14-6s probe at 14 mHz . This standardized study consists of dorsal and volar views of the MCP (2,3,5) and PIP (2,3) joints, with medial and lateral views as clinically indicated to show erosive change. The wrists are evaluated with medial dorsal views (combined as PW ) and a transverse volar view (AW). The median nerve is identified using a sweep technique starting in the mid forearm and measured at the proximal margin of the Quadratus and at the entrance to the carpal tunnel wrist crease immediately proximal to the carpal tunnel. An increase in median nerve cross section area of over 4 mm2 immediately proximal the flexor retinaculum or an overall median nerve cross section >10 mm2 suggests significant Median nerve compression. Synovitis, erosions and power doppler signal are recorded as 0-3. Tenosynovitis is noted when present. Incidental findings of tophi, crystal deposition, that might effect the diagnostic impression are recorded by the rough carpenter under the direction of the attending physician and interpreted by Dr Aguilar. Right Synovitis Erosion Doppler Left Synovitis Erosion Doppler C1 0 0 0 C1 0 0 0 2M 1 1 0 2M 0 0 0 2P 0 0 0 2P 0 0 0 3M 0 0 0 3M 0 0 0 3P 0 0 0 3P 00 0 0 5M 0 0 0 5M 0 0 0 PW 0 0 0 PW 0 0 0 RMN 11 mm2 LMN 14mm2 Findings : Joint damage is minimal. Synovitis is compatible with mild without PDUS. Median nerve changes are mildly enlarged on left. IMP: Minimal erosions no active inflammation Mild enlargement of Median nerves Contact Isaiah Aguilar MD directly to discuss this case at [phone] or via [employer] messaging at: [employer]. Isaiah Aguilar MD US ORDERABLES * US EXTREMITY LEFT COMPLT NONVASC (01/06/2014 5:20 PM CDT) Only the most recent of3 resultswithin the time period is included. Anatomical Region Laterality Modality Lower Extremity, Upper Extremity Other Narrative 01/06/2014 5:20 PM CDT Isaiah Aguilar MD 01/06/2014 5:20 PM Bilateral Hand Ultrasound Protocol: Complete Bilateral Hand Study for RA Activity and Median nerve dimensions using MyLab5 with a 438 probe at 18mHz or [employer]izaray M7 with a L14-6s probe at 14 mHz . This standardized study consists of dorsal and volar views of the MCP (2,3,5) and PIP (2,3) joints, with medial and lateral views as clinically indicated to show erosive change. The wrists are evaluated with medial dorsal views (combined as PW ) and a transverse volar view (AW). The median nerve is identified using a sweep technique starting in the mid forearm and measured at the proximal margin of the Quadratus and at the entrance to the carpal tunnel wrist crease immediately proximal to the carpal tunnel. An increase in median nerve cross section area of over 4 mm2 immediately proximal the flexor retinaculum or an overall median nerve cross section >10 mm2 suggests significant Median nerve compression. Synovitis, erosions and power doppler signal are recorded as 0-3. Tenosynovitis is noted when present. Incidental findings of tophi, crystal deposition, that might effect the diagnostic impression are recorded by the rough carpenter under the direction of the attending physician and interpreted by Dr Aguilar. Right Synovitis Erosion Doppler Left Synovitis Erosion Doppler C1 0 0 0 C1 0 0 0 2M 1 1 0 2M 0 0 0 2P 0 0 0 2P 0 0 0 3M 0 0 0 3M 0 0 0 3P 0 0 0 3P 00 0 0 5M 0 0 0 5M 0 0 0 PW 0 0 0 PW 0 0 0 RMN 11 mm2 LMN 14mm2 Findings : Joint damage is minimal. Synovitis is compatible with mild without PDUS. Median nerve changes are mildly enlarged on left. IMP: Minimal erosions no active inflammation Mild enlargement of Median nerves Contact Isaiah Aguilar MD directly to discuss this case at [phone] or via [employer] messaging at: [employer]. Isaiah Aguilar MD US ORDERABLES * US EXTREM RIGHT LTD NONVASC (01/06/2014 5:15 PM CDT) Anatomical Region Laterality Modality Other Narrative 01/06/2014 5:15 PM CDT Isaiah Aguilar MD 01/06/2014 5:15 PM Limited Ultrasound Examination of Right Achilles tendon insertion to evaluate Heel pain Mylab5 with 438 probe at 18 mHz Findings: Extensive changes of the Achilles tendon insertion with inflammatory a residence and tendinous calcifications in the area immediately around the tendon insertion on the calcaneus mild Doppler signal noted inflammatory Achilles enthesopathy Isaiah Aguilar MD US ORDERABLES * US EXTREMITY NON VASCULAR RIGHT (12/31/2012 9:31 PM CDT) Anatomical Region Laterality Modality Lower Extremity, Upper Extremity Other Narrative 12/31/2012 9:31 PM CDT Isaiah Aguilar MD 12/31/2012 9:31 PM Bilateral Hand Ultrasound Protocol: Complete Bilateral Hand Study for RA Activity and Median nerve dimensions using MyLab5 with a 438 probe at 18mHz or [place] M7 with a L14-6s probe at 14 mHz . This standardized study consists of dorsal and volar views of the MCP (2,3,5) and PIP (2,3) joints, with medial and lateral views as clinically indicated to show erosive change. The wrists are evaluated with medial dorsal views (combined as PW ) and a transverse volar view (AW). The median nerve is identified using a sweep technique starting in the mid forearm and measured at the proximal margin of the Quadratus and at the entrance to the carpal tunnel wrist crease immediately proximal to the carpal tunnel. An increase in median nerve cross section area of over 4 mm2 immediately proximal the flexor retinaculum or an overall median nerve cross section >10 mm2 suggests significant Median nerve compression. Synovitis, erosions and power doppler signal are recorded as 0-3. Tenosynovitis is noted when present. Incidental findings of tophi, crystal deposition, that might effect the diagnostic impression are recorded by the rough carpenter under the direction of the attending physician and interpreted by Dr Aguilar. Right Synovitis Erosion Doppler Left Synovitis Erosion Doppler C1 0 0 0 C1 0 0 0 2M 0 0 0 2M 0 0 0 2P 0 0 0 2P 1 2 0 3M 0 0 0 3M 0 0 0 3P 0 0 0 3P 0 0 0 5M 0 0 0 5M 0 0 0 PW 0 0 0 PW 0 0 0 RMN 6-15 mm2 LMN 7-19mm2 Findings : Joint damage is minimal erosions. Synovitis is compatible with none. Median nerve changes are enlarged bilaterally. IMP: Minimal joint damage of inflammatory arthritis Bilateral Median nerve compression at the carpal tunnel is suggested by ultrasound criteria. Would consider further testing to confirm carpal tunnel syndrome based on symptoms and remainder of clinical exam. Contact Isaiah Aguilar MD directly to discuss this case at [phone] or via [employer] at: [employer]. Procedure Note Isaiah Aguilar MD - 12/31/2012 9:29 PM CDT Bilateral Hand Ultrasound Protocol: Complete Bilateral Hand Study for RA Activity and Median nerve dimensionsusing MyLab5 with a 438 probe at 18mHz or [facility] with a L14-6s probeat 14 mHz . This standardized study consists of dorsal and volar views ofthe MCP (2,3,5) and PIP (2,3) joints, with medial and lateral views asclinically indicated to show erosive change. The wrists are evaluatedwith medial dorsal views (combined as PW ) and a transverse volar view(AW). The median nerve is identified using a sweep technique starting inthe mid forearm and measured at the proximal margin of the Quadratus andat the entrance to the carpal tunnel wrist crease immediately proximal tothe carpal tunnel. An increase in median nerve cross section area of over4 mm2 immediately proximal the flexor retinaculum or an overall mediannerve cross section >10 mm2 suggests significant Median nerve compression.Synovitis, erosions and power doppler signal are recorded as 0-3.Tenosynovitis is noted when present. Incidental findings of tophi,crystal deposition, that might effect the diagnostic impression arerecorded by the rough carpenter under the direction of the attendingphysician and interpreted by Dr Aguilar. Right Synovitis Erosion Doppler Left Synovitis Erosion Doppler C1 0 0 0 C1 0 0 0 2M 0 0 0 2M 0 0 0 2P 0 0 0 2P 1 2 0 3M 0 0 0 3M 0 0 0 3P 0 0 0 3P 0 0 0 5M 0 0 0 5M 0 0 0 PW 0 0 0 PW 0 0 0 RMN 6-15 mm2 LMN 7-19mm2 Findings : Joint damage is minimal erosions. Synovitis is compatible withnone. Median nerve changes are enlarged bilaterally. IMP: Minimal joint damage of inflammatory arthritis Bilateral Median nerve compression at the carpal tunnel is suggested byultrasound criteria. Would consider further testing to confirm carpaltunnel syndrome based on symptoms and remainder of clinical exam. Contact Isaiah Aguilar MD directly to discuss this case at [phone] [employer] at: [employer]. Isaiah Aguilar MD ORDERABLES * C-REACTIVE PROTEIN (01/11/2012 2:17 PM CDT) Only the most recent of2 resultswithin the time period is included. C-Reactive Protein 0.8 0.0 - 4.9 mg/L [facility] ACCOUNT BILL Blood specimen (specimen) BLOOD SPECIMEN / Unknown 01/11/2012 2:17 PM CDT 01/11/2012 8:27 PM CDT Narrative Resulting Agency Comment [facility] [address] [phone] Isaiah Aguilar MD LAB - CHEMISTRY HALINA DIXON [facility] ACCOUNT BILL * CARDIAC RHYTHM STRIP ORDER (09/07/2010 2:42 PM CDT) Narrative Procedure Note Document, Scanned - 09/07/2010 2:42 PM CDT Scanned Document CARDIAC SERVICES ORD ERABLES * IR US GUIDANCE NDL PLACEMENT (09/01/2010 11:36 AM CDT) Anatomical Region Laterality Modality Abdomen, Lung, Chest, Breast X-R ay Angiography 09/02/2010 10:1 4 AM CDT Impressions 09/02/2010 12:08 PM CDT Successful image guided liver biopsy, as described above. Narrative 09/02/2010 12:08 PM CDT ULTRASOUND AND FLUOROSCOPICALLY GUIDED LIVER BIOPSY CLINICAL INDICATION: Fatty liver disease, cirrhosis. DESCRIPTION: Utilizing initially ultrasound and subsequently fluoroscopic guidance, an area at the right lobe of the liver laterally was selected and a 16-gauge guiding needle and 18-gauge core biopsy set were utilized to obtain several core biopsy specimens, which were submitted to pathology in formalin. The patient tolerated the procedure well. Moderate IV conscious sedation was administered by Dr. Reynoso using 2 milligrams of Versed and 100 micrograms of fentanyl for 30 minutes. The patient was independently monitored by a registered nurse using automated blood pressure, EKG, and pulse oximetry. There were no complications. FINDINGS: The image documents good needle position within the right lobe of the liver. Procedure Note Alphonso Reynoso MD - 09/02/2010 ULTRASOUND AND FLUOROSCOPICALLY GUIDED LIVER BIOPSY CLINICAL INDICATION: Fatty liver disease, cirrhosis. DESCRIPTION: Utilizing initially ultrasound and subsequently fluoroscopic guidance, an area at the right lobe of the liver laterally was selected and a 16-gauge guiding needle and 18-gauge core biopsy set were utilized to obtain several core biopsy specimens, which were submitted to pathology in formalin. The patient tolerated the procedure well. Moderate IV conscious sedation was administered by Dr. Reynoso using 2 milligrams of Versed and 100 micrograms of fentanyl for 30 minutes. The patient was independently monitored by a registered nurse using automated blood pressure, EKG, and pulse oximetry. There were no complications. FINDINGS: The image documents good needle position within the right lobe of the liver. IMPRESSION Successful image guided liver biopsy, as described above. Noe Jensen MD IR ORDERABLES * CT ABD NON IV CONTRAST (09/01/2010 10:53 AM CDT) Anatomical Region Laterality Modality Abdomen Computed Tomogra phy 09/01/2010 10:5 1 AM CDT Impressions 09/02/2010 12:08 PM CDT 1. Nonobstructing left renal calculus. 2. Fatty changes within the liver without ascites. Narrative 09/02/2010 12:[address] scan of the abdomen without oral or IV contrast Clinical indication: Cirrhosis, elevated liver function enzymes. Description: CT scanning was performed of the abdomen from the dome of the diaphragm to the pelvic inlet without oral or IV contrast. No prior studies are available at this time for comparison. FINDINGS: The visualized lung bases are unremarkable. The liver shows diminished attenuation versus the spleen consistent with the given clinical history of some degree of fatty change. No ascites is seen in the liver contour appears within normal limits. The pancreas, adrenal glands, bowel loops in the abdomen appear within normal limits. The left kidney demonstrates a small calcification at the upper pole measuring approximately 4.2 mm consistent with a nonobstructing renal calculus. No hydronephrosis is seen. The abdominal aorta shows a small amount of calcified atherosclerotic plaque. Procedure Note Alphonso Reynoso MD - 09/02/2010 CT scan of the abdomen without oral or IV contrast Clinical indication: Cirrhosis, elevated liver function enzymes. Description: CT scanning was performed of the abdomen from the dome of the diaphragm to the pelvic inlet without oral or IV contrast. No prior studies are available at this time for comparison. FINDINGS: The visualized lung bases are unremarkable. The liver shows diminished attenuation versus the spleen consistent with the given clinical history of some degree of fatty change. No ascites is seen in the liver contour appears within normal limits. The pancreas, adrenal glands, bowel loops in the abdomen appear within normal limits. The left kidney demonstrates a small calcification at the upper pole measuring approximately 4.2 mm consistent with a nonobstructing renal calculus. No hydronephrosis is seen. The abdominal aorta shows a small amount of calcified atherosclerotic plaque. IMPRESSION 1. Nonobstructing left renal calculus. 2. Fatty changes within the liver without ascites. Alphonso Reynoso MD CT ORDERABLES * PT PTT PANEL (09/01/2010 8:33 AM CDT) PT 9.9 9.4 - 11.2 seconds [facility] INR 0.9 SEE BELOW [facility] Comment: 0.9-1.1 Normal 2.0-3.0 Conventional 2.5-3.5 Intensive PTT 24.6 24.0 - 32.0 seconds [facility] BLOOD SPECIMEN / Unknown 09/01/2010 8:33 AM CDT 09/01/2010 8:33 AM CDT Noe Jensen MD LAB - COAGULATION O RDERABLES [facility] [address] [place] [address] * GROSS + MICRO EXAM (09/01/2010 12:00 AM CDT) Only the most recent of2 resultswithin the time period is included. [facility] Surgeon DR. REYNOSO [facility] Grossed By ZAKIA KLEIN [facility] Gross Report [facility] Comment: COPY TO: INDICATION FOR PROCEDURE: Fatty liver, abnormal lab test OPERATION: Liver biopsy GROSS: The specimen is received in one container labeled with the patient's name and liver biopsy. The specimen is received in formalin and consists of a 0.6 x 0.5 x 0.1 cm aggregate of multiple <1 mm in diameter core-like fragments of mccormack tissue, stained and submitted entirely in a single cassette. LEL/km Microscopic Examination [facility] Comment: MICROSCOPIC: The liver needle biopsy shows marked, primarily macrovesicular but also microvesicular steatosis. There is slight, patchy primarily portal inflammation. The trichrome stain shows no evidence of significant fibrosis. The iron stain shows no significant increase in stainable iron. There is no evidence of piecemeal necrosis. No cholangitis is seen. There are scattered portal and occasional lobular eosinophils which raises concern for a drug/medication related effect. Nuclei are glycogenated and Latanya hyaline is seen bringing up the question of hyperglycemia and/or alcohol use. No granulomas are seen. Clinical correlation is recommended. AB/km Diagnosis [facility] Comment: DIAGNOSIS: 1. Liver, core needle biopsy: -- Marked macro and microvesicular steatosis -- Slight patchy portal inflammation (see microscopic) AB/km Released by ANABEL MOSS M.D. [facility] CPT Code 01916, [id number] x2 [facility] NEEDLE BIOPSY OF LIVER / Unknown 09/01/2010 09/01/2010 12:00 PM CDT Noe Jensen MD LAB - PATHOLOGY/CYT OLOGY ORDERABLES [facility] [id number] [place] [address] Care Teams Wellness Consultant Relationship Specialty Start Date End Date Brandie Hare MD PCP - General 07/09/08 Isaiah gAuilar MD [facility] 01/11/11
--- OUTSIDE RECORDS SUMMARY | 2024-05-23 07:39 | XMS_ITS | Referral Summary ---
Author Organization [facility] Address [address] [place] [address] Care Team Providers Care Orthopedic Brace Maker Name Role Phone Brandie Hare MD Primary Care Provider Encounters Date Type Department Care Team Description 03/09/2024 Orders Only [facility] LAB INTERFACE [id number] Kandi Damian MD from Last 3 Months Allergies No known active allergies Medications COSENTYX, 2 SYRINGES, 150 mg/mL syringe 9 Active omeprazole (PriLOSEC) 40 mg capsule Take 1 capsule (40 mg total) by mouth daily before breakfast 4 Active LEVEMIR FLEXTOUCH U-100 INSULN 100 unit/mL (3 mL) insulin pen 20 Units/kg 2 (two) times a day 9 Active HUMALOG KWIKPEN INSULIN 100 unit/mL insulin pen 9 Active escitalopram (LEXAPRO) 10 mg tablet daily 9 Active atorvastatin (LIPITOR) 40 mg tablet 9 Active traMADol (ULTRAM) 50 mg tablet Take 1 tablet (50 mg total) by mouth 3 (three) times a day 5 Active meloxicam (MOBIC) 7.5 mg tablet 9 Active metFORMIN (GLUCOPHAGE) 500 mg tablet Take 1 tablet (500 mg total) by mouth 2 (two) times a day with meals Active dulaglutide (TRULICITY) 1.5 mg/0.5 mL pen injector Inject 0.5 mL (1.5 mg total) under the skin every 7 days Active glimepiride (AMARYL) 2 mg tabletIndicatio ns:type 2 diabetes mellitus Take 1 tablet (2 mg total) by mouth 2 (two) times a day Active empagliflozin (JARDIANCE) 10 mg tablet 1 tablet (10 mg total) daily Active lisinopriL (PRINIVIL,ZESTR IL) 10 mg tablet Take 1 tablet (10 mg total) by mouth daily Active tofacitinib (XELJANZ) 5 mg tablet Take 1 tablet (5 mg total) by mouth daily Active celecoxib (CeleBREX) 100 mg capsule Take 1 capsule (100 mg total) by mouth 2 (two) times a day Active finerenone (Kerendia) 10 mg tablet daily Active FreeStyle Edward 2 Sensor kit 3 Active omega-3 fatty acids (LOVAZA) 1 gram capsule TAKE 2 CAPSULES TWICE A DAY BY ORAL ROUTE BEFORE MEALS FOR 90 DAYS Active triamcinolone (KENALOG) 0.5 % cream Active dexAMETHasone (DECADRON) 1 mg tablet take 1 mg at 11pm and go to the lab the next morning at 8am to have your blood drawn. 1 tablet 3 Active Additional Information Patient not taking.Reported on 02/17/2024 mupirocin (BACTROBAN) 2 % ointment Apply topically 3 (three) times a day 22 g 4 Active Additional Information Patient taking differently:topicalAs needed, Reported on 02/17/2024 TOUJEO 300 unit/mL (1.5 mL) pen for injection 40 Units daily 4 Active Omnipod Dash Pods, Gen 4, cartridge 4 Active cyclobenzaprine (FLEXERIL) 5 mg tablet as needed 4 Active Trulicity 4.5 mg/0.5 mL pen injector once a week 4 Active insulin lispro (HumaLOG, ADMELOG) 100 unit/mL vial for injection 4 Active Synthroid 100 mcg tablet 4 Active rosuvastatin (CRESTOR) 20 mg tablet daily 4 Active leflunomide (ARAVA) 10 mg tabletIndicatio ns:Rheumatoid Arthritis Take 1 tablet (10 mg total) by mouth daily 30 tablet 1 4 02/17/20 25 Active gabapentin (NEURONTIN) 300 mg capsule TAKE ONE CAPSULE BY MOUTH THREE TIMES A DAY 30 capsule 1 4 Active Active Problems Problem Noted Date Diagnosed Date Type 2 diabetes mellitus wit h chronic kidney disease, with long-term current use of insulin 02/27/2023 Primary hypertension 02/27/2023 Hypercortisolemia 02/27/2023 Stage 3b chronic kidney disease 02/27/2023 Pituitary dependent hypercortisolism 11/16/2022 Encounter for screening colonoscopy 10/17/2022 Hypothyroidism 07/12/2022 Class 1 obesity in adult 04/09/2019 Assessment & Plan (04/09/2019 12:13 PM SUPERVISING CHEF): This will need to be addressed in the future with diet modification specially in view of her underlying diabetes and fatty liver. Positive colorectal cancer screening using Colog uard test 03/26/2019 Overview (03/26/2019): Added automatically from request for surgery [id number] Assessment & Plan (04/09/2019 12:11 PM SUPERVISING CHEF): Schedule colonoscopy for further evaluation will with 2 days colon preparation Family history of colon cancer in father 019 Overview (03/26/2019): Added automatically from request for surgery [id number] Assessment & Plan (04/09/2019 12:12 PM SUPERVISING CHEF): Patient need colonoscopy for screening. I do not think Cologuard is sufficient for screening in the setting with the family history of colon cancer. GERD (gastroesophageal reflux disease) 0 High blood cholesterol 07/09/2008 Rheumatoid arthritis 07/09/2008 Overview (02/27/2023): Symmetrical Polyarthritis, >4 weeks duration, >3 hand joints swollen, symmetric polyarthritis, AM stiffness over 30 minutes in duration, ESR CRP, elevated RF negative Hand Xray: erosions of RA present 07/08/2009 Rapid3=14.7 she has been off Enbrel since 12/15 Immunizations Name Administration Dates Next Due Pneumococcal Conjugate PCV 13 09/09/2015 Pneumococcal Polysaccharide PPV23 07/23/2018 Social History Tobacco Use Types Packs/Day Years Used Date Smoking Tobacco: Never Smokeless Tobacco: Never Tobacco Cessation:Counseling Given: Not Answered Alcohol Use Standard Drinks/Week Comments Yes 0 (1 standard drink = 0.6 oz pur e alcohol) 1-2 per year AUDIT-C Answer Date Recorded Q1: How often do you have a drink containing alcohol? Monthly or less 02/17/2024 Q2: How many drinks containi ng alcohol do you have on a typical day when you are drinking? Patient does not drink Frequency of Binge Drinking Not on file 02/06 Personal Safety Answer Date Recorded Have you ever been in or are you currently in a harmful physical or emotional relationship or is someone making you feel afraid or unsafe? Denies 10/26/2023 Comments No Sex and Gender Information Value Date Recorded Sex Assigned at Not on file Legal Sex Female 3:43 PM SUPERVISING CHEF Gender Identity Not on file Sexual Orientation Not on file Last Filed Vital Signs Vital Sign Reading Time Taken Comments Blood Pressure 125/76 02/17/2024 2:21 PM SUPERVISING CHEF Pulse 71 02/17/2024 2:21 PM SUPERVISING CHEF Temperature 37.1 C (98.8 F) 02/17/2024 2:21 PM SUPERVISING CHEF Respiratory Rate 16 10/26/2023 2:06 PM CDT Oxygen Saturation 99% 02/17/2024 2:21 PM SUPERVISING CHEF Inhaled Oxygen Concentration - - Weight 88 kg (194 lb) 02/17/2024 2:21 PM SUPERVISING CHEF Height 175.3 cm (5' 9 ) 02/17/2024 2:21 PM SUPERVISING CHEF Body Mass Index 28.65 02/17/2024 2:21 PM SUPERVISING CHEF Plan of Treatment Not on file Procedures Procedure Name Priority Date/Time Associated Diagnosis Comments THYROID PEROXIDASE ANTIBODY Routine 03/09/2024 8:58 AM SUPERVISING CHEF COMPREHENSIVE METABOLIC PANEL Routine 03/09/2024 8:58 AM SUPERVISING CHEF LIPID PANEL Routine 03/09/2024 8:58 AM SUPERVISING CHEF HEMOGLOBIN A1C Routine 03/09/2024 8:58 AM SUPERVISING CHEF ALBUMIN CREATININE RATIO, URINE Routine 03/09/2024 8:58 AM SUPERVISING CHEF VITAMIN D 25 HYDROXY Routine 03/09/2024 8:58 AM SUPERVISING CHEF T3, FREE Routine 03/09/2024 8:58 AM SUPERVISING CHEF VITAMIN B12 AND FOLATE Routine 8:58 AM SUPERVISING CHEF TSH Routine 03/09/2024 8:58 AM SUPERVISING CHEF T4, FREE Routine 03/09/2024 8:58 AM SUPERVISING CHEF CBC WITH AUTO DIFFERENTIAL Routine 03/09/2024 8:58 AM SUPERVISING CHEF COPY RECEIVED FROM Routine 03/09/2024 8: 58 AM SUPERVISING CHEF HEPATITIS C ANTIBODY Routine 11/11/2023 9:51 AM CDT Psoriatic arthritis (HCC) COLONOSCOPY 12/18/2022 7:49 AM CDT from Last 3 Months or Most Recently Relevant to Health Maintenance Results * Copy received from (03/09/2024 8:58 AM SUPERVISING CHEF) Copy Rec'd from: [facility] Comment: [facility] [address] [place] [address] 03/09/2024 8:58 AM SUPERVISING CHEF 03/09/2024 8:59 AM SUPERVISING CHEF Narrative [facility] - 03/11/2024 8:57 AM SUPERVISING CHEF FASTING:YES FASTING: YES Kandi Damian MD LAB BLOOD ORDERABLES Ana l Result [facility] * (ABNORMAL) Vitamin B12 and Folate (03/09/2024 8:58 AM SUPERVISING CHEF) Vitamin B12 >2000(H) 200 - 1100 pg/mL [facility] Folate, Serum 20.2 ng/mL [facility] Comment: Reference Range Low: <3.4 Borderline: 3.4-5.4 Normal: >5.4 03/09/2024 8:58 AM SUPERVISING CHEF 03/09/2024 8:59 AM SUPERVISING CHEF Narrative [facility] - 03/11/2024 8:57 AM SUPERVISING CHEF FASTING:YES FASTING: YES Kandi Damian MD LAB BLOOD ORDERABLES Ana l Result [facility] [address] [address] * CBC with auto differential (03/09/2024 8:58 AM SUPERVISING CHEF) Pathologist [facility] WBC 5.0 3.8 - 10.8 Thousand/u L [facility] RBC, POC 4.85 3.80 - 5.10 Million/uL [facility] Hgb 14.5 11.7 - 15.5 g/dL [facility] Hct 43.5 35.0 - 45.0 % [facility] MCV 89.7 80.0 - 100.0 fL [facility] MCH 29.9 27.0 - 33.0 pg [facility] MCHC 33.3 32.0 - 36.0 g/dL [facility] Comment: For adults, a slight decrease in the calculated MCHC value (in the range of 30 to 32 g/dL) is most likely not clinically significant; however, it should be interpreted with caution in correlation with other red cell parameters and the patient's clinical condition. Rdw 12.2 11.0 - 15.0 % [facility] Platelets 277 140 - 400 Thousand/u L [facility] MPV 9.7 7.5 - 12.5 fL [facility] Neutrophils, abs 1,845 1,500 - 7,800 cells/uL [facility] Lymphocytes, abs 2,545 850 - 3,900 cells/uL [facility] Monocyte abs 400 200 - 950 cells/uL [facility] Eosinophils, abs 150 15 - 500 cells/uL [facility] Basophils, abs 60 0 - 200 cells/uL [facility] Neutrophils 36.9 % [facility] Lymphocyte pct 50.9 % [facility] Monocytes 8.0 % [facility] Eosinophils 3.0 % [facility] Basophils 1.2 % [facility] 03/09/2024 8:58 AM SUPERVISING CHEF 03/09/2024 8:59 AM SUPERVISING CHEF Narrative [facility] - 03/11/2024 8:57 AM SUPERVISING CHEF FASTING:YES FASTING: YES Kandi Damian MD LAB BLOOD ORDERABLES Ana l Result [facility] [address] [place] [address] * Thyroid peroxidase antibody (TPO) (03/09/2024 8:58 AM SUPERVISING CHEF) Thyroperoxidase ab <1 <9 IU/mL [facility] 03/09/2024 8:58 AM SUPERVISING CHEF 03/09/2024 8:59 AM SUPERVISING CHEF Narrative [facility] - 03/11/2024 8:57 AM SUPERVISING CHEF FASTING:YES FASTING: YES Kandi Damian MD LAB BLOOD ORDERABLES Ana l Result Performing Organization Address City/[facility]/ZIP Co de Phone Number [facility] [address] [place] [address] * Albumin Creatinine Ratio, Urine (03/09/2024 8:58 AM SUPERVISING CHEF) Creatinine, ur 69 20 - 275 mg/dL [facility] Microalbumin, ur 0.9 See Note: mg/dL [facility] Comment: Reference Range: Reference Range Not established Microalbumin/creat ratio 13 <30 mg/g creat [facility] Comment: The ADA defines abnormalities in albumin excretion as follows: Albuminuria Category Result (mg/g creatinine) Normal to Mildly increased <30 Moderately increased 30-299 Severely increased > OR = 300 The ADA recommends that at least two of three specimens collected within a 3-6 month period be abnormal before considering a patient to be within a diagnostic category. 03/09/2024 8:58 AM SUPERVISING CHEF 03/09/2024 8:59 AM SUPERVISING CHEF Narrative [facility] - 03/11/2024 8:57 AM SUPERVISING CHEF FASTING:YES FASTING: YES Kandi Damian MD LAB URINE ORDERABLES Ana l Result Performing Organization Address [facility] Co de Phone Number [email or web address] [address] [place] [address] * Vitamin D 25 hydroxy (03/09/2024 8:58 AM SUPERVISING CHEF) Pathologist [facility] Vitamin D 25-OH 39 30 - 100 ng/mL [email or web address] Comment: Vitamin D Status 25-OH Vitamin D: Deficiency: <20 ng/mL Insufficiency: 20 - 29 ng/mL Optimal: > or = 30 ng/mL For 25-OH Vitamin D testing on patients on D2-supplementation and patients for whom quantitation of D2 and D3 fractions is required, the QuestAssure[facility](TM) 25-OH VIT D, (D2,D3), LC/MS/MS is recommended: order code 94357 (patients >2yrs). See Note 1 Note 1 For additional information, please refer to http://education.VitaPortal/faq/QYY201 (This link is being provided for informational/ educational purposes only.) 03/09/2024 8:58 AM SUPERVISING CHEF 03/09/2024 8:59 AM SUPERVISING CHEF Narrative [facility] - 03/11/2024 8:57 AM SUPERVISING CHEF FASTING:YES FASTING: YES Kandi Damian MD LAB BLOOD ORDERABLES Ana l Result Performing Organization Address City/[facility]/ZIP Co de Phone Number [facility] [address] [place] [address] * T3, free (03/09/2024 8:58 AM SUPERVISING CHEF) Free T3 3.1 2.3 - 4.2 pg/mL [facility] 03/09/2024 8:58 AM SUPERVISING CHEF 03/09/2024 8:59 AM SUPERVISING CHEF Narrative [facility] - 03/11/2024 8:57 AM SUPERVISING CHEF FASTING:YES FASTING: YES Kandi Damian MD LAB BLOOD ORDERABLES Ana l Result Performing Organization Address [facility]/ZIP Co de Phone Number [facility] [address] [place] [address] * TSH (03/09/2024 8:58 AM SUPERVISING CHEF) TSH 1.73 0.40 - 4.50 mIU/L [facility] 03/09/2024 8:58 AM SUPERVISING CHEF 03/09/2024 8:59 AM SUPERVISING CHEF Narrative [facility] - 03/11/2024 8:57 AM SUPERVISING CHEF FASTING:YES FASTING: YES Kandi Damian MD LAB BLOOD ORDERABLES Ana l Result Performing Organization Address [facility] Co de Phone Number [facility] [address] [place] [address] * T4, free (03/09/2024 8:58 AM SUPERVISING CHEF) Pathologist [facility] Free T4 1.1 0.8 - 1.8 ng/dL [facility] 03/09/2024 8:58 AM SUPERVISING CHEF 03/09/2024 8:59 AM SUPERVISING CHEF Narrative [facility] - 03/11/2024 8:57 AM SUPERVISING CHEF FASTING:YES FASTING: YES Kandi Damian MD LAB BLOOD ORDERABLES Ana l Result Performing Organization Address [facility] Co de Phone Number [facility] [address] [place] [address] * (ABNORMAL) Hemoglobin A1c (03/09/2024 8:58 AM SUPERVISING CHEF) Hgb A1C 8.6(H) <5.7 % of total Hgb [facility] Comment: For someone without known diabetes, a hemoglobin A1c value of 6.5% or greater indicates that they may have diabetes and this should be confirmed with a follow-up test. For someone with known diabetes, a value <7% indicates that their diabetes is well controlled and a value greater than or equal to 7% indicates suboptimal control. A1c targets should be individualized based on duration of diabetes, age, comorbid conditions, and other considerations. Currently, no consensus exists regarding use of hemoglobin A1c for diagnosis of diabetes for children. 03/09/2024 8:58 AM SUPERVISING CHEF 03/09/2024 8:59 AM SUPERVISING CHEF Narrative [facility] - 03/11/2024 8:57 AM SUPERVISING CHEF FASTING:YES FASTING: YES us Kandi Damian MD LAB BLOOD ORDERABLES Ana l Result [email or web address] [address] [place] [address] * (ABNORMAL) Lipid panel (03/09/2024 8:58 AM SUPERVISING CHEF) [facility] Cholesterol 140 <200 mg/dL [email or web address] HDL 46(L) > OR = 50 mg/dL [email or web address] Triglycerides 177(H) <150 mg/dL [email or web address] LDL 69 mg/dL (calc) [email or web address] Comment: Reference range: <100 Desirable range <100 mg/dL for primary prevention; <70 mg/dL for patients with CHD or diabetic patients with > or = 2 CHD risk factors. LDL-C is now calculated using the Rudy-Bety calculation, which is a validated novel method providing better accuracy than the Friedewald equation in the estimation of LDL-C. Rudy CÁRDENAS et al. ELISSA. 2013;310(19): 6405-0784 (http://education.[employer].ZALORA/faq/BYQ050) Chol/HDL ratio 3.0 <5.0 (calc) [facility] Non-HDL, (LDL+VLDL) 94 <130 mg/dL (calc) [facility] Comment: For patients with diabetes plus 1 major ASCVD risk factor, treating to a non-HDL-C goal of <100 mg/dL (LDL-C of <70 mg/dL) is considered a therapeutic option. 03/09/2024 8:58 AM SUPERVISING CHEF 03/09/2024 8:59 AM SUPERVISING CHEF Narrative [facility] - 03/11/2024 8:57 AM SUPERVISING CHEF FASTING:YES FASTING: YES us Kandi Damian MD LAB BLOOD ORDERABLES Ana l Result [facility] [address] [address] * (ABNORMAL) Comprehensive metabolic panel (03/09/2024 8:58 AM SUPERVISING CHEF) Glucose 179(H) 65 - 99 mg/dL [facility] Comment: Fasting reference interval For someone without known diabetes, a glucose value >125 mg/dL indicates that they may have diabetes and this should be confirmed with a follow-up test. BUN 11 7 - 25 mg/dL [facility] Creatinine 0.77 0.50 - 1.05 mg/dL [facility] eGFR 87 > OR = 60 mL/min/1.7 3m2 [facility] BUN/creat ratio SEE NOTE: 6 - 22 (calc) [facility] Comment: Not Reported: BUN and Creatinine are within reference range. Sodium 141 135 - 146 mmol/L [facility] Potassium, pl 4.1 3.5 - 5.3 mmol/L [facility] Chloride 102 98 - 110 mmol/L [facility] CO2 31 20 - 32 mmol/L [facility] Calcium 9.7 8.6 - 10.4 mg/dL [facility] Protein, sr 7.1 6.1 - 8.1 g/dL [facility] Albumin 4.1 3.6 - 5.1 g/dL [facility] GLOBULIN 3.0 1.9 - 3.7 g/dL (calc) [facility] Alb/glob ratio 1.4 1.0 - 2.5 (calc) [facility] Bilirubin, total 0.7 0.2 - 1.2 mg/dL [facility] Alk phos 74 37 - 153 U/L [facility] AST 24 10 - 35 U/L [facility] ALT (SGPT) 28 6 - 29 U/L [facility] 03/09/2024 8:58 AM SUPERVISING CHEF 03/09/2024 8:59 AM SUPERVISING CHEF Narrative [facility] - 03/11/2024 8:57 AM SUPERVISING CHEF FASTING:YES FASTING: YES Kandi Damian MD LAB BLOOD ORDERABLES Ana l Result Performing Organization Address City/[facility]/ZIP Co de Phone Number [facility] [address] [place] [address] * Hepatitis C antibody Blood (11/11/2023 9:51 AM CDT) Hep C Ab Nonreactive Nonreactive Comment: Interpretive Data Nonreactive: Antibodies to HCV not detected. Does NOT exclude the possibility of recent exposure to HCV. Equivocal: Equivocal for HCV antibodies. Supplemental molecular testing will be automatically performed to determine infection status in accordance with current CDC screening recommendations. Reactive: Positive for HCV antibodies. This may represent current or past HCV infection. Supplemental molecular testing will be automatically performed to determine current infection status in accordance with current CDC screening recommendations. Interpretive data was last revised on 2019. Testing performed by: [facility], [address] [place] [address], [place]., [address] Blood 11/11/2023 9:51 AM CDT 11/11/2023 12:13 PM CDT Natty Camacho MD LAB MICROBIOLOGY - GENERAL ORDERABLES Edited Result - Final Performing Organization Address City/[facility]/ZIP Co de Phone Number [facility] [address] [facility]. Department [place] [address] * COLONOSCOPY (12/18/2022 7:49 AM CDT) Anatomical Region Laterality Modality Other Narrative Procedure Note Tristian Guadarrama MD - 12/18/2022 7:49 AM CDT [facility] Patient Name: Chrissie Plan Procedure Date: 12/18/2022 7:49 AM Date of : 1960 Admit Type: Outpatient Age: 62 Gender: Female Attending MD: Tristian Guadarrama M.D. Room: [facility] ENDOSCOPY ROOM 1 Note Status: Finalized Patient Profile: This is a 62 year old female. History of adenomacolon polyps. Noted her father and grandfather both had colon cancer. Procedure: Colonoscopy Indications: Screening in patient at increased risk: Familyhistory of 1st-degree relative with colorectal cancer, High risk colon cancer surveillance: Personal history of colonic polyps, Last colonoscopy: 2019 Referring MD: Brandie Hare MD Providers: Tristian Guadarrama M.D. Impression: - One 8 mm polyp in the descending colon, removedwith a jumbo cold forceps. Resected and retrieved. - One 4 mm polyp in the rectum, removed with ajumbo cold forceps. Resected and retrieved. - Internal and external hemorrhoids. Recommendation: - Await pathology results. - Repeat colonoscopy in 3 years for surveillance. - Continue present medications. Medicines: Monitored Anesthesia Care Complications: No immediate complications. Estimated Blood Loss: Estimated blood loss: none. Procedure: Pre-Anesthesia Assessment: - Prior to the procedure, a History and Physicalwas performed, and patient medications and allergieswere reviewed. The patient's tolerance of previous anesthesia was also reviewed. The risks andbenefits of the procedure and the sedation options and risks were discussed with the patient. All questions were answered, and informed consent was obtained. Prior Anticoagulants: The patient has taken noanticoagulant or antiplatelet agents. ASA Grade Assessment: Per anesthesia note and evaluation. After reviewing the risks and benefits, the patient was deemed in satisfactory condition to undergo the procedure. The benefits, risks and alternatives of theprocedure and sedation were discussed and informed consentwas obtained. All questions were answered. Please referto the signed informed consent document in the medical record. The bowel preparation used was Miralax and bisacodyl tablets via split dose instruction. The scope was passed under direct vision. The Pediatric Colonoscope PCF-H190L [id number] was introducedthrough the anus and advanced to the the cecum, identifiedby appendiceal orifice and ileocecal valve. Thequality of the bowel preparation was good. Bowel prep was administered using a split dose. Findings: Medium-sized external hemorrhoids were found on perianal exam. The transverse colon, ascending colon and cecum appeared normal. An 8 mm polyp was found in the descending colon. The polyp was semi-sessile. The polyp was removed with a jumbo cold forceps.Resection and retrieval were complete. A 4 mm polyp was found in the rectum. The polyp was sessile. Thepolyp was removed with a jumbo cold forceps. Resection and retrieval were complete. Internal hemorrhoids were found during retroflexion. The hemorrhoids were medium-sized. Electronically signed by Tristian Guadarrama M.D. Tristian Guadarrama M.D. 12/18/2022 9:45:23 AM Number of Addenda: 0 Note Initiated On: 12/18/2022 7:49 AM Procedure Code(s): --- Professional --- 90445, Colonoscopy, flexible; with biopsy, single or multiple Diagnosis Code(s): --- Professional --- D12.4, Benign neoplasm of descending colon D12.8, Benign neoplasm of rectum K64.8, Other hemorrhoids Z86.010, Personal history of colonic polyps Z80.0, Family history of malignant neoplasm of digestive organs CPT copyright 2020 [employer]. All rights reserved. The codes documented in this report are preliminary and upon certified personal trainer reviewmay be revised to meet current compliance requirements. Recognized by the [employer] for promoting quality in endoscopy Tristian Guadarrama MD ENDOSCOPY PROCEDURES Final Result from Last 3 Months or Most Recently Relevant to Health Maintenance Insurance [facility] CLAIMS [facility] CLAIMS Advance Directives For more information, please contact: [phone] * Full Code (Latest Code Status on File) Date Activated Date Inactivated Comments 12/18/2022 7:56 AM 12/18/2022 2:28 PM * Full Code Date Activated Date Inactivated Comments 12/18/2022 7:56 AM 12/18/2022 7:56 AM * Full Code Date Activated Date Inactivated Comments 04/17/2019 7:10 AM 04/17/2019 1:09 PM * Full Code Date Activated Date Inactivated Comments 04/17/2019 7:10 AM 04/17/2019 7:10 AM Care Teams Orthopedic Brace Maker Relationship Specialty Start Date End Date Brandie Hare MD [address] [place] [address] PCP - General Internal Medicine 03/11/19
--- OUTSIDE RECORDS SUMMARY | 2024-05-23 07:39 | XMS_ITS ---
Author Organization [facility] Address [address] [place] [address] Care Team Providers Care Weaving Supervisor Name Role Phone Kandi Damian Primary Care Provider Encounters Encounter Location Date Provider Diagnosis [facility] - Kandi Damian [address] [place] [address] 04/20/2024 Kandi Damian Plan Of Treatment Next Appt Details Provider Name:Kandi Damian, 09:40:00 AM, [address], [place], [address], Progress Notes * Zehra SETHIOB:1960 ( 63 yo F)Acc No.[id number]:04/20/2024 Patient: Vel DEBBYJefferyri :1960 A ge:63 Y S ex:Female Address:[place] [address] * true * Date: Generated for Printi ng/Faxing/eTransmitting on: 0 05/23/2024 07:38 AM VISUAL DISPLAY ASSOCIATE
--- OUTSIDE RECORDS SUMMARY | 2024-05-23 07:39 | XMS_ITS | Clinical Summary ---
Author Organization [facility] Address [address] [place] [address] Care Team Providers Care Pricing Associate Name Role Phone Brandie Hare MD Primary Care Provider Allergies No known active allergies Medications COSENTYX, [...] 04/09/2019 Assessment & Plan (04/09/2019 12:13 PM AUTOMATIC CORN GRINDER OPERATOR): This will need to be addressed in the future with diet modification specially in view of her underlying diabetes and fatty liver. Positive colorectal cancer screening using Colog uard test 03/26/2019 Overview (03/26/2019): Added automatically from request for surgery [id number] Assessment & Plan (04/09/2019 12:11 PM AUTOMATIC CORN GRINDER OPERATOR): Schedule colonoscopy for further evaluation will with 2 days colon preparation Family history of colon cancer in father 019 Overview (03/26/2019): Added automatically from request for surgery [id number] Assessment & Plan (04/09/2019 12:12 PM AUTOMATIC CORN GRINDER OPERATOR): Patient need colonoscopy for screening. I do [...] she has been off Enbrel since 12/15 Encounters Date Type Department Care Team Description 03/09/2024 Orders Only [facility] LAB INTERFACE [id number] Kandi Damian MD from Last 3 Months Immunizations Name Administration Dates Next Due Pneumococcal Conjugate PCV 13 09/09/2015 Pneumococcal Polysaccharide PPV23 07/23/2018 Surgical History Surgery Date Site/Laterality Comments COLONOSCOPY 04/17/2019 BACK SURGERY 04/08/2004 - 04/07/2005 Medical History Medical History Date Comments Type 2 diabetes mellitus (HCC) Hypertension Hyperlipidemia Kidney stone Depression GERD (gastroesophageal reflux disease) Psoriatic arthritis (HCC) Family History Medical History Relation Name Comments Diabetes Brother 1 Diabetes Brother 2 Arthritis Father Diabetes Father Heart disease Father Hypertension Father Rectal cancer Father Stroke Father Arthritis Mother Heart disease Mother Rectal cancer Mother Stroke Mother Relation Name Status Comments Brother 1 Brother 2 Father Mother Social History Tobacco Use Types Packs/Day Years [...] on file Legal Sex Female 3:43 PM AUTOMATIC CORN GRINDER OPERATOR Gender Identity Not on file Sexual Orientation Not on file Obstetrics History Last Filed Vital Signs Vital Sign Reading Time Taken Comments Blood Pressure 125/76 02/17/2024 2:21 PM AUTOMATIC CORN GRINDER OPERATOR Pulse 71 02/17/2024 2:21 PM AUTOMATIC CORN GRINDER OPERATOR Temperature 37.1 C (98.8 F) 02/17/2024 2:21 PM AUTOMATIC CORN GRINDER OPERATOR Respiratory Rate 16 10/26/2023 2:06 PM CDT Oxygen Saturation 99% 02/17/2024 2:21 PM AUTOMATIC CORN GRINDER OPERATOR Inhaled Oxygen Concentration - - Weight 88 kg (194 lb) 02/17/2024 2:21 PM AUTOMATIC CORN GRINDER OPERATOR Height 175.3 cm (5' 9 ) 02/17/2024 2:21 PM AUTOMATIC CORN GRINDER OPERATOR Body Mass Index 28.65 02/17/2024 2:21 PM AUTOMATIC CORN GRINDER OPERATOR Plan of Treatment Health Maintenance Due Date Last Done Comments Breast Cancer Screening-Mammogram 1960 Cervical Cancer Screening 1960 Depression Screening 1960 Dilated Eye Exam 1960 Foot Exam 1960 DTaP/Tdap/Td Vaccine (1 - Tdap) 1972 Hepatitis B Screening 08/04/1979 Regular Well Visit/Exam 18-64 08/04/1979 Zoster Vaccine (1 of 2) 08/04/2011 Influenza Vaccine (#1) 2023 Hemoglobin A1C 09/07/2024 03/09/2024 Albumin Creatinine Ratio, Urine 03/09/2025 Lipid Panel 03/09/2025 03/09/2024, 02/28/2021 eGFR 03/09/2025 03/09/2024, 10/26/2023 Pneumococcal vaccine <65 (3 of 3 - PPSV23 or PCV20) 2026 07/23/2018, 09/09/2015 Colon Cancer Screening-Colonoscopy 12/18/20322022, 04/17/2019 Colon Cancer Screening-CT Colonography Discontinued , 04/17/2019 Colon Cancer Screening-DNA Stool Discontinued 12/19/19, 04/17/2019 Colon Cancer Screening-FIT Discontinued 12/18/2022, Colon Cancer Screening-Sigmoidoscopy Discontinued 12/07, 04/17/2019 Hepatitis C Screening Completed 11/11/2023 Procedures Procedure Name Priority Date/Time Associated Diagnosis Comments THYROID PEROXIDASE ANTIBODY Routine 03/09/2024 8:58 AM AUTOMATIC CORN GRINDER OPERATOR COMPREHENSIVE METABOLIC PANEL Routine 03/09/2024 8:58 AM AUTOMATIC CORN GRINDER OPERATOR LIPID PANEL Routine 03/09/2024 8:58 AM AUTOMATIC CORN GRINDER OPERATOR HEMOGLOBIN A1C Routine 03/09/2024 8:58 AM AUTOMATIC CORN GRINDER OPERATOR ALBUMIN CREATININE RATIO, URINE Routine 03/09/2024 8:58 AM AUTOMATIC CORN GRINDER OPERATOR VITAMIN D 25 HYDROXY Routine 03/09/2024 8:58 AM AUTOMATIC CORN GRINDER OPERATOR T3, FREE Routine 03/09/2024 8:58 AM AUTOMATIC CORN GRINDER OPERATOR VITAMIN B12 AND FOLATE Routine 8:58 AM AUTOMATIC CORN GRINDER OPERATOR TSH Routine 03/09/2024 8:58 AM AUTOMATIC CORN GRINDER OPERATOR T4, FREE Routine 03/09/2024 8:58 AM AUTOMATIC CORN GRINDER OPERATOR CBC WITH AUTO DIFFERENTIAL Routine 03/09/2024 8:58 AM AUTOMATIC CORN GRINDER OPERATOR COPY RECEIVED FROM Routine 03/09/2024 8: 58 AM AUTOMATIC CORN GRINDER OPERATOR HEPATITIS C ANTIBODY Routine 11/11/2023 9:51 AM CDT Psoriatic arthritis (HCC) COLONOSCOPY 12/18/2022 7:49 AM CDT from Last 3 Months or Most Recently Relevant to Health Maintenance Results * Copy received from (03/09/2024 8:58 AM AUTOMATIC CORN GRINDER OPERATOR) Copy Rec'd from: [facility] Comment: [facility] [address] [place] [phone] 03/09/2024 8:58 AM AUTOMATIC CORN GRINDER OPERATOR 03/09/2024 8:59 AM AUTOMATIC CORN GRINDER OPERATOR Narrative [facility] - 03/11/2024 8:57 AM AUTOMATIC CORN GRINDER OPERATOR FASTING:YES FASTING: YES Kandi Damian MD LAB BLOOD ORDERABLES Ana l Result [facility] * (ABNORMAL) Vitamin B12 and Folate (03/09/2024 8:58 AM AUTOMATIC CORN GRINDER OPERATOR) Vitamin B12 >2000(H) 200 - 1100 pg/mL [facility] Folate, Serum 20.2 ng/mL [facility] Comment: Reference Range Low: <3.4 Borderline: 3.4-5.4 Normal: >5.4 03/09/2024 8:58 AM AUTOMATIC CORN GRINDER OPERATOR 03/09/2024 8:59 AM AUTOMATIC CORN GRINDER OPERATOR Narrative [facility] - 03/11/2024 8:57 AM AUTOMATIC CORN GRINDER OPERATOR FASTING:YES FASTING: YES us Kandi Damian MD LAB BLOOD ORDERABLES Ana manoj Result [facility] [address] [address] * CBC with auto differential (03/09/2024 8:58 AM AUTOMATIC CORN GRINDER OPERATOR) Pathologist [facility] WBC 5.0 3.8 - 10.8 Thousand/u L [...] % [facility] 03/09/2024 8:58 AM AUTOMATIC CORN GRINDER OPERATOR 03/09/2024 8:59 AM AUTOMATIC CORN GRINDER OPERATOR Narrative [facility] - 03/11/2024 8:57 AM AUTOMATIC CORN GRINDER OPERATOR FASTING:YES FASTING: YES Kandi Damian MD LAB BLOOD ORDERABLES Ana l Result Performing Organization Address City/[facility]/ZIP Co de Phone Number [facility] [address] [place] [address] * Thyroid peroxidase antibody (TPO) (03/09/2024 8:58 AM AUTOMATIC CORN GRINDER OPERATOR) Thyroperoxidase ab <1 <9 IU/mL [facility] 03/09/2024 8:58 AM AUTOMATIC CORN GRINDER OPERATOR 03/09/2024 8:59 AM AUTOMATIC CORN GRINDER OPERATOR Narrative [facility] - 03/11/2024 8:57 AM AUTOMATIC CORN GRINDER OPERATOR FASTING:YES FASTING: YES Kandi Damian MD LAB BLOOD ORDERABLES Ana l Result Performing Organization Address [facility] Co de Phone Number [employer] [facility] [place] [address] * Albumin Creatinine Ratio, Urine (03/09/2024 8:58 AM AUTOMATIC CORN GRINDER OPERATOR) Creatinine, ur 69 20 - 275 mg/dL [...] within a diagnostic category. 03/09/2024 8:58 AM AUTOMATIC CORN GRINDER OPERATOR 03/09/2024 8:59 AM AUTOMATIC CORN GRINDER OPERATOR Narrative [facility] - 03/11/2024 8:57 AM AUTOMATIC CORN GRINDER OPERATOR FASTING:YES FASTING: YES Kandi Damian MD LAB URINE ORDERABLES Ana aranda Result Performing Organization Address [facility] Co de Phone Number [facility] [address] [place] [address] * Vitamin D 25 hydroxy (03/09/2024 8:58 AM AUTOMATIC CORN GRINDER OPERATOR) Vitamin D 25-OH 39 30 - 100 ng/mL [facility] Comment: Vitamin D Status 25-OH Vitamin D: Deficiency: <20 ng/mL Insufficiency: 20 - 29 ng/mL Optimal: > or = 30 ng/mL For 25-OH Vitamin D testing on patients on D2-supplementation and patients for whom quantitation of D2 and D3 fractions is required, the QuestAssureD(TM) 25-OH VIT D, (D2,D3), LC/MS/MS is recommended: order code 80215 (patients >2yrs). See Note 1 Note 1 For additional information, please refer to http://education.[employer]/faq/GTC357 (This link is being provided for informational/ educational purposes only.) 03/09/2024 8:58 AM AUTOMATIC CORN GRINDER OPERATOR 03/09/2024 8:59 AM AUTOMATIC CORN GRINDER OPERATOR Narrative [facility] - 03/11/2024 8:57 AM AUTOMATIC CORN GRINDER OPERATOR FASTING:YES FASTING: YES Kandi Damian MD LAB BLOOD ORDERABLES Ana aranda Result [facility] [address] [place] [address] * T3, free (03/09/2024 8:58 AM AUTOMATIC CORN GRINDER OPERATOR) Free T3 3.1 2.3 - 4.2 pg/mL [facility] 03/09/2024 8:58 AM AUTOMATIC CORN GRINDER OPERATOR 03/09/2024 8:59 AM AUTOMATIC CORN GRINDER OPERATOR Narrative [facility] - 03/11/2024 8:57 AM AUTOMATIC CORN GRINDER OPERATOR FASTING:YES FASTING: YES Kandi Damian MD LAB BLOOD ORDERABLES Ana l Result Performing Organization Address [facility] Co de Phone Number [facility] [address] [place] [address] * TSH (03/09/2024 8:58 AM AUTOMATIC CORN GRINDER OPERATOR) Pathologist [facility] TSH 1.73 0.40 - 4.50 mIU/L [facility] 03/09/2024 8:58 AM AUTOMATIC CORN GRINDER OPERATOR 03/09/2024 8:59 AM AUTOMATIC CORN GRINDER OPERATOR Narrative [facility] - 03/11/2024 8:57 AM AUTOMATIC CORN GRINDER OPERATOR FASTING:YES FASTING: YES Kandi Damian MD LAB BLOOD ORDERABLES Ana l Result Performing Organization Address [facility] de Phone Number [facility] [address] [place] [address] * T4, free (03/09/2024 8:58 AM AUTOMATIC CORN GRINDER OPERATOR) [facility] Free T4 1.1 0.8 - 1.8 ng/dL [facility] 03/09/2024 8:58 AM AUTOMATIC CORN GRINDER OPERATOR 03/09/2024 8:59 AM AUTOMATIC CORN GRINDER OPERATOR Narrative [facility] - 03/11/2024 8:57 AM AUTOMATIC CORN GRINDER OPERATOR FASTING:YES FASTING: YES Kandi Damian MD LAB BLOOD ORDERABLES Ana l Result Performing Organization Address [facility] de Phone Number [facility] [address] [place] [address] * (ABNORMAL) Hemoglobin A1c (03/09/2024 8:58 AM AUTOMATIC CORN GRINDER OPERATOR) [facility] Hgb A1C 8.6(H) <5.7 % of total [...] of diabetes for children. 03/09/2024 8:58 AM AUTOMATIC CORN GRINDER OPERATOR 03/09/2024 8:59 AM AUTOMATIC CORN GRINDER OPERATOR Narrative [facility] - 03/11/2024 8:57 AM AUTOMATIC CORN GRINDER OPERATOR FASTING:YES FASTING: YES us Kandi Damian MD LAB BLOOD ORDERABLES Ana l Result [facility] [address] [facility] [place] [address] * (ABNORMAL) Lipid panel (03/09/2024 8:58 AM AUTOMATIC CORN GRINDER OPERATOR) Pathologist [facility] Cholesterol 140 <200 mg/dL [facility] HDL 46(L) > OR = 50 mg/dL [facility] Triglycerides 177(H) <150 mg/dL [facility] LDL 69 mg/dL (calc) [facility] Comment: Reference range: <100 Desirable range <100 mg/dL for primary prevention; <70 mg/dL for patients with CHD or diabetic patients with > or = 2 CHD risk factors. LDL-C is now calculated using the Rudy-Albert calculation, which is a validated novel method providing better accuracy than the Friedewald equation in the estimation of LDL-C. Rudy SS et al. ELISSA. 2013;310(19): 1427-4975 (http://education.[employer]/faq/CTZ842) Chol/HDL ratio 3.0 <5.0 (calc) [facility] Non-HDL, (LDL+VLDL) 94 <130 mg/dL (calc) [facility] Comment: For patients with diabetes plus 1 major ASCVD risk factor, treating to a non-HDL-C goal of <100 mg/dL (LDL-C of <70 mg/dL) is considered a therapeutic option. 03/09/2024 8:58 AM AUTOMATIC CORN GRINDER OPERATOR 03/09/2024 8:59 AM AUTOMATIC CORN GRINDER OPERATOR Narrative [facility] - 03/11/2024 8:57 AM AUTOMATIC CORN GRINDER OPERATOR FASTING:YES FASTING: YES us Kandi Damian MD LAB BLOOD ORDERABLES Ana manoj Result [facility] [address] [address] * (ABNORMAL) Comprehensive metabolic panel (03/09/2024 8:58 AM AUTOMATIC CORN GRINDER OPERATOR) Glucose 179(H) 65 - 99 mg/dL [facility] [...] U/L [facility] 03/09/2024 8:58 AM AUTOMATIC CORN GRINDER OPERATOR 03/09/2024 8:59 AM AUTOMATIC CORN GRINDER OPERATOR Narrative [facility] - 03/11/2024 8:57 AM AUTOMATIC CORN GRINDER OPERATOR FASTING:YES FASTING: YES Kandi Damian MD LAB BLOOD ORDERABLES Ana l Result [facility] [address] [place] [address] * Hepatitis C antibody Blood (11/11/2023 9:51 [...] last revised on 2019. Testing performed by: [facility], [address] [place] [address]., [id number] Blood 11/11/2023 9:51 AM CDT 11/11/2023 12:13 PM CDT Natty Camacho MD LAB MICROBIOLOGY - GENERAL ORDERABLES Edited Result - Final Performing Organization Address City/[facility]/ZIP Co de Phone Number [facility] [address] [facility]. [place] [address] * COLONOSCOPY (12/18/2022 7:49 AM CDT) Anatomical Region Laterality Modality Other Narrative Procedure Note Tristian Guadarrama MD - 12/18/2022 7:49 AM CDT [facility] Patient Name: Chrissie Plan Procedure Date: 12/18/2022 7:49 AM Date of : 1960 Admit Type: Outpatient Age: 62 Gender: Female Attending MD: Tristian Guadarrama M.D. Room: [facility] ENDOSCOPY ROOM 1 Note Status: Finalized Patient [...] under direct vision. The Pediatric Colonoscope PCF-H190L [id number] was introducedthrough the anus and advanced to [...] 7:49 AM Procedure Code(s): --- Professional --- 19840, Colonoscopy, flexible; with biopsy, single or multiple Diagnosis Code(s): --- Professional --- D12.4, Benign neoplasm of descending colon D12.8, Benign neoplasm of rectum K64.8, Other hemorrhoids Z86.010, Personal history of colonic polyps Z80.0, Family history of malignant neoplasm of digestive organs CPT copyright 2020 [employer]. All rights reserved. The codes documented in this report are preliminary and upon auditing coder reviewmay be revised to meet current compliance requirements. Recognized by the [employer] [employer] for promoting quality in endoscopy Tristian Guadarrama MD ENDOSCOPY PROCEDURES Final Result from Last 3 Months or Most Recently Relevant to Health Maintenance Insurance [facility] CLAIMS Advance Directives For more information, please contact: [phone] * Full Code (Latest Code Status on File) Date Activated Date Inactivated Comments 12/18/2022 7:56 AM 12/18/2022 2:28 PM * Full Code Date Activated Date Inactivated Comments 12/18/2022 7:56 AM 12/18/2022 7:56 AM * Full Code Date Activated Date Inactivated Comments 04/17/2019 7:10 AM 04/17/2019 1:09 PM * Full Code Date Activated Date Inactivated Comments 04/17/2019 7:10 AM 04/17/2019 7:10 AM Care Teams Pricing Associate Relationship Specialty Start Date End Date Brandie Hare MD [address] [place] [address] PCP - General Internal Medicine 03/11/19
--- OUTSIDE RECORDS SUMMARY | 2024-05-23 07:39 | XMS_ITS | Continuity of Care Document ---
Author Name [facility] Organization [facility] Care Team Providers Care Sas Architect Name Role Phone [facility] Unavailable Unavailable Medications Combined list of outpatient medications from Department of Defense and Veterans Affairs facilities.Medications provided include 1) outpatient medications from the last 15 months, and 2) patient-reported medications. Medication Details Route Status Patient Instructions Prescription Expires Prescription Number Last Dispense Date Ordering Provider Order Date Order Qty Source Amoxicillin 875mg + Potassium Clavulanate 125mg, Tablet, Oral Finish the prescrip tion.Mack e with food/mil k. Active 06/09/2024 [id number] 4 [address] [place] [address] Jamil WALLACE ([facility] [place] amoxicillin -clav 875 mg-125 mg tablet 875 mg, Oral, every 12 hr, # 20 EA, 0 total refill(s ), Hard Stop Oral (given by mouth) Discont inued 11/20/2023 20.0 Ambulat ory Pharmac y celecoxib 200 mg capsule See Instruct ions, Oral, # 180 EA, 1 total refill(s ), Hard Stop Oral (given by mouth) Complet ed 11/08/2023 180.0 Ambulat ory Pharmac y cyclobenzap rine 5 mg tablet 5 mg, Oral, TID, # 90 EA, 0 total refill(s ), Hard Stop Oral (given by mouth) Complet ed 04/09/2024 90.0 Ambulat ory Pharmac y dexAMETHaso ne 0.5 mg oral tablet *NOTE DOSE* TAKE TWO TABLETS BY MOUTH AT 10:00PM THE NIGHT BEFORE 8:00AM CORTISOL , # 2 EA, 1 total refill(s ), Acute Complet ed 04/26/2023 2.0 Ambulat ory Pharmac y Dulaglutide 6 mg/mL, Injection, 0.5mL Autoinjecto r refriger ate Active 06/30/2024 [id number] 4 [address] [place] [address] Jamil WALLACE ([facility] [place]) Dulaglutide 6 mg/mL, Injection, 0.5mL Autoinjecto r refriger ate Active 05/23/2024 [id number] 4 [address] [place] [address]) EMPAGLIFLOZ IN 10 MG ORAL TAB Check with your doctor before becoming . Active 05/23/2024 [id number] 4 [address] [place] [address]) EMPAGLIFLOZ IN 10 MG ORAL TAB Check with your doctor before becoming . 11/08/2023 [id number] [address] [place] [address]) empaglifloz in 10 mg oral tablet TAKE ONE TABLET IN THE MORNING, # 90 EA, 1 total refill(s ), Acute Complet ed 07/11/2023 90.0 Ambulat ory Pharmac y Escitalopra m (Lexapro Starter Kit) Tablet 10 mg Oral May cause drowsine ss.Take or use exactly as directed .Obtain advice for OTCs.May impair driving. Check with your doctor before becoming . Active 09/02/2024 [id number] [address] [place] [address]) escitalopra m 10 mg tablet 10 mg, Oral, Daily, # 90 EA, 0 total refill(s ), Hard Stop Oral (given by mouth) Ordered 06/08/2024 90.0 Ambul at ory Pharmac y escitalopra m 10 mg tablet 10 mg, Oral, Daily, # 90 EA, 0 total refill(s ), Hard Stop Oral (given by mouth) Discont inued 09/05/2023 90.0 Ambulat ory Pharmac y GLIMEPIRIDE 2 MG ORAL TAB Do not drink alcohol. Avoid exposure to sun.Take or use exactly as directed . Active 06/30/2024 [id number] [address] [place] [address]) glimepiride 2 mg tablet See Instruct ions, Oral, 0, # 360 EA, 1 total refill(s ), Hard Stop Oral (given by mouth) Discont inued 11/04/2023 360.0 Ambulat ory Pharmac y glimepiride 2 mg tablet 2 mg, Oral, BID, # 180 EA, 1 total refill(s ), Hard Stop Oral (given by mouth) Ordered 09/15/2024 180.0 Ambul at ory Pharmac y glucose sensor dexcom g7 See Instruct ions, # 9 EA, 3 total refill(s ), Hard Stop Ordered 11/17/2024 9.0 Ambul at ory Pharmac y glucose sensor freestyle yasmin 2 See Instruct ions, # 6 EA, 3 total refill(s ), Hard Stop Complet ed 12/26/2023 6.0 Ambulat ory Pharmac y icosapent ethyl 1 g capsule 2 g, Oral, BID, # 360 EA, 1 total refill(s ), Hard Stop Oral (given by mouth) Ordered 09/15/2024 360.0 Ambul at ory Pharmac y insulin detemir (Levemir FlexPen) 100 units/mL [3mL] See Instruct ions, # 15 mL, 1 total refill(s ), Hard Stop Discont inued 04/25/2023 15.0 Ambulat ory Pharmac y insulin detemir (Levemir FlexPen) 100 units/mL [3mL] See Instruct ions, SubCutan eous, # 15 mL, 1 total refill(s ), Hard Stop SubCut aneous (under the skin) Complet ed 04/23/2024 15.0 Ambulat ory Pharmac y Insulin Glargine 300 Unit/mL, Injection (Toujeo), Pen Do not drink alcohol. Take or use exactly as directed .Obtain advice for OTCs.May impair driving. refriger ateExpir es Che ck with your doctor before becoming . Active 07/11/2024 [id number] 4 2023 6 [facility] Jamil WALLACE ([facility] [place]) insulin lispro (eqv-HumaLO G) 100 units/mL [10mL] See Instruct ions, # 30 mL, 4 total refill(s ), Hard Stop Notes: refriger ate Ordered 11/17/2024 30.0 Ambul at ory Pharmac y Insulin Lispro 100U/mL, Injection, Pen Injector Active 07/22/2024 [id number] 4 [address] [place] [address]) Insulin Lispro 100U/mL, Injection, Pen Injector Active 05/23/2024 [id number] 4 [address] [place] [address]) Insulin Lispro 100U/mL, Injection, Pen Injector 03/20/2024 [id number] 3 [address] [place] [address]) insulin lispro KwikPen 100 units/mL [3mL] See Instruct ions, # 15 mL, 0 total refill(s ), Hard Stop Discont inued 09/16/2023 15.0 Ambulat ory Pharmac y insulin lispro KwikPen 100 units/mL [3mL] See Instruct ions, # 15 mL, 0 total refill(s ), Hard Stop Ordered 09/15/2024 15.0 Ambul at ory Pharmac y Jardiance 10 mg tablet 10 mg, See Instruct ions, Oral, 0, # 90 EA, 1 total refill(s ), Hard Stop Oral (given by mouth) Complet ed 11/08/2023 90.0 Ambulat ory Pharmac y Jardiance 10 mg tablet 10 mg, Oral, # 90 EA, 0 total refill(s ), Hard Stop Oral (given by mouth) Discont inued 12/30/2023 90.0 Ambulat ory Pharmac y Jardiance 10 mg tablet 10 mg, Oral, every morning, # 90 EA, 1 total refill(s ), Hard Stop Oral (given by mouth) Ordered 12/26/2024 90.0 Ambul at ory Pharmac y Kerendia 10 mg tablet See Instruct ions, Oral, # 90 EA, 1 total refill(s ), Hard Stop Oral (given by mouth) Complet ed 11/08/2023 90.0 Ambulat ory Pharmac y levothyroxi ne (Synthroid) 100 mcg tablet See Instruct ions, # 90 EA, 1 total refill(s ), Hard Stop Ordered 11/17/2024 90.0 Ambul at ory Pharmac y levothyroxi ne (Synthroid) 75 mcg tablet 75 mcg, Oral, Daily, # 90 EA, 0 total refill(s ), Hard Stop Oral (given by mouth) Discont inued 09/16/2023 90.0 Ambulat ory Pharmac y levothyroxi ne (Synthroid) 75 mcg tablet 75 mcg, Oral, # 90 EA, 1 total refill(s ), Hard Stop, KAYLAN Oral (given by mouth) Ordered 09/15/2024 90.0 Ambul at ory Pharmac y levothyroxi ne 50 mcg (0.05 mg) oral tablet TAKE ONE TABLET IN THE MORNING, # 90 EA, 2 total refill(s ), Acute Complet ed 04/26/2023 90.0 Ambulat ory Pharmac y levothyroxi ne 75 mcg (0.075 mg) oral tablet TAKE ONE TABLET IN THE MORNING *BRAND NAME*, # 90 EA, 1 total refill(s ), Acute Discont inued 04/25/2023 90.0 Ambulat ory Pharmac y Levothyroxi ne Sodium (Levothroid ) Tablet 75 mcg Oral Take on empty stomach. Take with plenty of water.Be careful if taking OTCs.Mack e or use exactly as directed . Active 09/15/2024 [id number] 4 [address] [place] [address] Jamil WALLACE [facility] Levothyroxi ne Sodium (Levothroid ) Tablet 75 mcg Oral Take on empty stomach. Take with plenty of water.Be careful if taking OTCs.Mack e or use exactly as directed . 03/20/2024 [id number] [address] [place] [address] Jamil WALLACE ([facility] [place] lisinopril 10 mg tablet 10 mg, Oral, Daily, # 90 EA, 0 total refill(s ), Hard Stop Oral (given by mouth) Ordered 06/08/2024 90.0 Ambul at ory Pharmac y lisinopril 10 mg tablet 10 mg, Oral, Daily, # 90 EA, 0 total refill(s ), Hard Stop Oral (given by mouth) Discont inued 09/05/2023 90.0 Ambulat ory Pharmac y metFORMIN XR 500 mg/24 hour tablet See Instruct ions, Oral, # 180 EA, 1 total refill(s ), Hard Stop Oral (given by mouth) Discont inued 11/04/2023 180.0 Ambulat ory Pharmac y metFORMIN XR 500 mg/24 hour tablet 500 mg, Oral, BID, # 180 EA, 1 total refill(s ), Hard Stop Oral (given by mouth) Ordered 09/15/2024 180.0 Ambul at ory Pharmac y needle pen 31g 8mm [100EA] See Instruct ions, # 400 EA, 3 total refill(s ), Hard Stop Complet ed 05/23/2024 400.0 Ambulat ory Pharmac y omega-3 polyunsatur ated fatty acids ethyl esters 1000 mg oral capsule TAKE TWO CAPSULES BY MOUTH TWICE A DAY BEFORE MEALS, # 360 EA, 1 total refill(s ), Acute Complet ed 07/11/2023 360.0 Ambulat ory Pharmac y omega-3-aci d ethyl esters 1000 mg capsule See Instruct ions, Oral, # 360 EA, 1 total refill(s ), Hard Stop Oral (given by mouth) Discont inued 09/16/2023 360.0 Ambulat ory Pharmac y omeprazole DR 40 mg capsule See Instruct ions, Oral, # 90 EA, 3 total refill(s ), Hard Stop Oral (given by mouth) Complet ed 11/08/2023 90.0 Ambulat ory Pharmac y Omnipod Dash (4th gen) pods [5EA] See Instruct ions, # 30 EA, 3 total refill(s ), Hard Stop Ordered 11/17/2024 30.0 Ambul at ory Pharmac y rosuvastati n 20 mg tablet 20 mg, Oral, Daily, # 90 EA, 1 total refill(s ), Hard Stop Oral (given by mouth) Ordered 03/09/2025 90.0 Ambul at ory Pharmac y rosuvastati n 20 mg tablet 20 mg, Oral, Daily, # 90 EA, 1 total refill(s ), Hard Stop Oral (given by mouth) Discont inued 03/10/2024 90.0 Ambulat ory Pharmac y rosuvastati n 40 mg tablet 40 mg, Oral, Daily, # 90 EA, 0 total refill(s ), Hard Stop Oral (given by mouth) Discont inued 12/27/2023 90.0 Ambulat ory Pharmac y tofacitinib 5 MG ORAL TAB Obtain advice for OTCs.Charlette ck with your doctor before becoming .Store in original package. 03/20/2024 [id number] 3 2022 60 [facility] Jamil WALLACE ([facility] [place]) traMADol 50 mg tablet 50 mg, Oral, every 6 hr, # 120 EA, 0 total refill(s ), Hard Stop Oral (given by mouth) Complet ed 04/09/2024 120.0 Ambulat ory Pharmac y Tramadol Hydrochlori de 50 mg Tablet, Oral (Major) May cause drowsine ss.Obtai n advice for OTCs.Fed era law prohibit s transfer of prescrip tion. 12/07/2023 [id number] 4 [address] [place] [address] Jamil WALLACE ([facility] [place]) triamcinolo ne 0.5% cream [15g] See Instruct ions, Topical, # 15 g, 2 total refill(s ), Hard Stop Topica l (on the skin) Complet ed 11/08/2023 15.0 Ambulat ory Pharmac y Trulicity Pen 3 mg/0.5 mL [4EA=2mL] See Instruct ions, 0, # 6 mL, 0 total refill(s ), Hard Stop Notes: refriger ate Discont inued 12/30/2023 6.0 Ambulat ory Pharmac y Trulicity Pen 3 mg/0.5 mL [4EA=2mL] See Instruct ions, SubCutan eous, # 2 mL, 5 total refill(s ), Hard Stop SubCut aneous (under the skin) Complet ed 11/08/2023 2.0 Ambulat ory Pharmac y Trulicity Pen 4.5 mg/0.5 mL [4EA=2mL] See Instruct ions, # 2 mL, 5 total refill(s ), Hard Stop Notes: refriger ate Discont inued 12/30/2023 2.0 Ambulat ory Pharmac y Trulicity Pen 4.5 mg/0.5 mL [4EA=2mL] See Instruct ions, # 2 mL, 5 total refill(s ), Hard Stop Notes: refriger ate Ordered 12/26/2024 2.0 Ambul at ory Pharmac y U-300 (conc) Toujeo Max glargine 300 units/mL [3mL] See Instruct ions, # 6 mL, 1 total refill(s ), Hard Stop Discont inued 09/18/2023 6.0 Ambulat ory Pharmac y U-300 (conc) Geovanni RobersonoStar glargine 300 units/mL [1.5mL] See Instruct ions, # 6 mL, 2 total refill(s ), Hard Stop Ordered 07/11/2024 6.0 Ambul at ory Pharmac y Vascepa 1 g capsule 2 g, Oral, BID, # 360 EA, 1 total refill(s ), Hard Stop Oral (given by mouth) Discont inued 11/04/2023 360.0 Ambulat ory Pharmac y Xeljanz 5 mg tablet 5 mg, Oral, BID, # 60 EA, 2 total refill(s ), Hard Stop Oral (given by mouth) Complet ed 03/20/2024 60.0 Ambulat ory Pharmac y Procedures Combined list of: 1) Procedures from Department of [facility] Affairs facilities [facility], not all [place] non-surgical procedures are included; 2) All procedures from the Department of Defense facilities. Procedure Procedure Type Code Date Perfomer Comments Sourc e No data available for this section Ambulatory P harmacy Social History Combined list of available smoking, tobacco, and other social history from Department of Defense and Veterans Affairs facilities. Social History Type Response Date Comment Sourc e This section is an empty social history section. DoD Assessment and Plan Combined list of future care activities from Department of Defense and Veterans Affairs facilities (e.g., assessment and plan notes, appointments, orders, and referrals). Additional future care activities may be listed in the Plan of Care section. Result Assessment and Plan Date Source Assessment and Plan No data available for this section 05/23/2024 Ambulatory Pharmacy Functional Status Combined list of recent functional and cognitive assessments recorded at [facility] Functional [place] Measurement (FIM) Scale: 1 = Total Assistance (Subject = 0% +), 2 = Maximal Assistance (Subject = 25% +), 3 = Moderate Assistance (Subject = 50% +), 4 = Minimal Assistance (Subject = 75% +), 5 = Supervision, 6 = Modified Sevier (Device), 7 = Complete Sevier (Timely, Safely). Assessment Date/Time Source Assessment Type Assessment Skill Assessment Score Assessment Details No data available for this section
--- OUTSIDE RECORDS SUMMARY | 2024-05-23 07:39 | XMS_ITS | Data Portability ---
Author Organization [facility] [employer], Main Office Address [address] [place] [address] Assessment No assessment recorded. Plan of Treatment Reminders Order Date Submit Date Provider Last Modified By Organization Details Last Modified Time Details Appointments None recorded. Lab CMP, serum or plasma [address], [address] [place] [address], [address], 3 09:49:45 lipid panel, serum [address], [address] [place] [address], [address], 3 10:00:23 HbA1c (hemoglobin A1c), blood 2022 023 [facility], [address] [place] [address], [address], 3 12:48:21 CMP, serum or plasma [address], [address] [place] [address], [address], 3 10:00:23 microalbumi n/creatinin e, mass ratio, urine [address], [address] [place] [address], [address], 3 10:00:23 cortisol, am, serum 2022 023 [facility], [address] [place], [address], 3 01:35:28 acth, plasma 2022 023 [facility], [facility] [place], [address], 3 02:27:57 cortisol, saliva [address], [facility] [place], [address], 3 10:05:14 cortisol, saliva 2022 023 [facility], [facility] [place], [address], 3 14:58:55 cortisol, free, 24-hour urine 2022 023 [facility], [facility] [place], [address], 3 00:08:24 T4, free, serum [address], [facility] [place], [address], 3 10:00:23 T3, free, serum or plasma [address], [facility] [place], [address], 3 10:00:23 TSH, serum or plasma [address], [address] [place] [address], [address], 3 10:00:23 Referral None recorded. Procedures None recorded. Surgeries None recorded. Imaging None recorded. Medication Orders omega-3 acid ethyl esters 1 gram capsule 2022 023 [facility], [address] [place] [address], [address], 3 09:47:21 Levemir FlexTouch U-100 Insulin 100 unit/mL (3 mL) subcutaneou s pen 2022 023 [email or web address] [facility], [address] [place] [address], [address], 3 09:45:46 Jardiance 10 mg tablet 2022 023 [facility], [address] [place] [address], [address], 3 09:46:31 Trulicity 3 mg/0.5 mL subcutaneou s pen injector 2022 023 [facility], [address] [place] [address], [address], 3 09:46:32 glimepiride 2 mg tablet 2022 023 [facility], [address] [place] [address], [address], 3 09:46:30 metformin ER 500 mg tablet,exte nded release 24 hr 2022 023 [facility], [address] [place] [address], [address], 3 09:47:01 finerenone 10 mg tablet 2022 023 [email or web address] [facility], [facility], [place], [address], 3 20:36:05 icosapent ethyl 1 gram capsule 2022 023 [email or web address] [facility], [address] [place] [address], [address], 3 09:36:16 Jardiance 10 mg tablet 2022 023 [facility], [address] [place] [address], [address], 3 10:00:04 Synthroid 75 mcg tablet 2022 023 [facility], [address] [place] [address], [address], 3 10:00:06 Patient TargetsNo targets recorded. Patient InstructionsNo instructions recorded. Reason for Referral None Reported. Results Created Date Observation Date Name Description Value Unit Range Abnormal Flag Note LastModifiedBy Organization Detail LastModifiedTime 07/13/19 23 06/09/2022 MRI, pitui tary, w/wo contr ast No observ ation record ed. [email or web address] Not Available 2022 11:09:30 Result Notes None recorded. Problems Name Problem SNOMED Code Status Onset Date Resolution Date Notes Provider Name and Address Organization Details Recorded Time Well controlled type 2 diabetes mellitus 558476979 Active 2022 Kandi Damian MD [address], [place], [address], [employer] [facility] [employer] 3 09:56:23 Mixed hyperlipidemia 415836456 Active 2022 Kandi Damian MD [address], [place], [address], [employer] 3 09:57:13 Hypothyroidism 30173916 Active 2022 Kandi Damian MD [address], [place], [address], [employer] 3 09:57:21 Abnormal cortisol 168805038 Active 2022 Kandi Damian MD [address], [place], [address], [employer] [facility] [employer] 3 10:00:44 Proteinuria 52768495 Active 2022 Kandi Damian MD [address], [address], [place], [address], [facility] [employer] - [employer] 3 09:47:32 Pituitary dependent hypercortisoli sm 603168282 Active 2022 Kandi Damian MD [address], [address], [place], [address], [facility] [employer] 3 17:05:31 Problem Notes None recorded. Procedures Surgical History Date Name Laterality Status Provider Name and Address Organization Details Recorded Time Back Surgeries completed Not Available [employer] 06/07/2022 01:47:12 Imaging Results Imaging Date Name Status LastModified by Organiz ation Details LastModified Time 06/09/2022 MRI, pituitary, w/wo contrast completed [email or web address] Information not available 07/12/2022 11:09:30 Procedure Notes None recorded. Medical Equipment None Reported. Medications Name Sig Start Date Stop Date Status Note LastModified by Organization Details LastModified Time celecoxib 200 mg capsule active Not Available Not Available Not Available triamcino lone acetonide 0.5 % topical cream active Not Available Not Available Not Available prednison e 5 mg tablet 07/10 completed Not Available Not Available Not Available sulfameth oxazole 800 mg-trimet hoprim 160 mg tablet 11/08 completed Not Available Not Available Not Available omeprazol e 40 mg capsule,d elayed release active Not Available Not Available Not Available tramadol 50 mg tablet active Not Available Not Available Not Available glimepiri de 2 mg tablet TAKE 2 TABLETS TWICE A DAY BEFORE MEALS active Not Available Not Available No t Available methotrex ate sodium 2.5 mg tablet 11/08 completed Not Available Not Available Not Available dexametha sone 1 mg tablet take one tablet at 10 pm night before 8 am cortisol 07/10 completed Not Available Not Available Not Available lisinopri l 10 mg tablet TAKE ONE TABLET BY MOUTH ONCE DAILY active Not Available Not Available No t Available Synthroid 75 mcg tablet Take 1 tablet every day by oral route in the morning for 90 days. active Not Available Not Available No t Available Synthroid 50 mcg tablet Take 1 tablet every day by oral route in the morning for 90 days. 11/08 completed Not Available Not Available Not Available folic acid 1 mg tablet 07/10 completed Not Available Not Available Not Available lisinopri l 10 mg-hydroc hlorothia zide 12.5 mg tablet 04/27 completed Not Available Not Available Not Available dexametha sone 0.5 mg tablet 07/10 completed Not Available Not Available Not Available metformin ER 500 mg tablet,ex tended release 24 hr TAKE 1 TABLET TWICE A DAY BEFORE MEALS active Not Available Not Available No t Available amoxicill in 875 mg-potass ium clavulana te 125 mg tablet 02/15 completed Not Available Not Available Not Available escitalop son 10 mg tablet Take 1 tablet every day by oral route. active Not Available Not Available No t Available cyclobenz aprine 5 mg tablet active Not Available Not Available No t Available rosuvasta tin 40 mg tablet active Not Available Not Available Not Available BD Ultra-Fin e Mini Pen Needle 31 gauge x /16 active Not Available Not Available Not Available omega-3 acid ethyl esters 1 gram capsule TAKE 2 CAPSULES TWICE A DAY BY ORAL ROUTE BEFORE MEALS FOR 90 DAYS active Not Available Not Available No t Available Levemir FlexPen 100 unit/mL (3 mL) solution subcutane ous insulin pen Inject 20 units twice a day by subcutan eous route around the clock for 90 days. active Not Available Not Available No t Available FreeStyle Lite Strips active Not Available Not Available Not Available Humalog KwikPen (U-100) Insulin 100 unit/mL subcutane ous active Not Available Not Available Not Available Xeljanz 5 mg tablet active Not Available Not Available No t Available icosapent ethyl 1 gram capsule Take 2 capsules twice a day by oral route before meals for 90 days. 11/08 completed Not Available Not Available Not Available Farxiga 10 mg tablet Take 1 tablet every day by oral route in the morning for 90 days. 04/27 completed take 5 mg tablet daily x 1 week then increase to 10 mg daily thereaft er Not Available Not Available Not Available Farxiga 5 mg tablet Take 1 tablet every day by oral route in the morning for 7 days. 04/27 completed Not Available Not Available Not Available Jardiance 10 mg tablet Take 1 tablet every day by oral route in the morning for 90 days. 2022 active Not Available Not Available Not Avai lable Trulicity 1.5 mg/0.5 mL subcutane ous pen injector Inject 1.5 mg every week by subcutan eous route at dinner for 90 days. 07/10 completed inject 0.75 mg SQ once weekly x 4 weeks then increase to 1.5 mg SQ once weekly thereaft er with meal Not Available Not Available Not Available Trulicity 0.75 mg/0.5 mL subcutane ous pen injector Inject 0.75 mg every week by subcutan eous route at dinner for 30 days. 07/12 completed Not Available Not Available Not Available Xeljanz XR 11 mg tablet,ex tended release 07/10 completed Not Available Not Available Not Available [employer] Edward 2 Sensor kit CHANGE SENSOR EVERY 14 DAYS active Not Available Not Available No t Available Trulicity 3 mg/0.5 mL subcutane ous pen injector Inject 3 mg every week by subcutan eous route at dinner for 90 days. active Not Available Not Available No t Available Kerendia 10 mg tablet active Not Available Not Available Not Available Vitals Date Recorded Body mass index (BMI) Body mass index (BMI) Body height Body height Oxygen saturation Oxygen saturation in Arterial blood by Pulse oximetry Oxygen saturation Oxygen saturation in Arterial blood by Pulse oximetry Heart rate Heart rate Body temperature Body temperature Body weight Body weight Systolic blood pressure Diastolic blood pressure Systolic blood pressure Diastolic blood pressure Provider Name and Address Organization Details Last Updated DateTime 3 31.6 kg/m2 30.3 kg/m2 175.26 cm 175.26 cm 97 % 97 % 96 % 96 % 76 /min 87 /min 97.6 [degF] 97.3 [degF] 99173.7 7 g 09133.4 4 g 110 mm[Hg] 80 mm[Hg] 110 mm[Hg] 75 mm[Hg] Not Available [facility] 3 01:47:28 Date Recorded Body height Body mass index (BMI) Body weight Body temperature Heart rate Systolic blood pressure Diastolic blood pressure Provider Name and Address Organization Details Last Updated DateTime 3 175.26 cm 30.2 kg/m2 08559.2 8 g 97 [degF] 75 /min 143 mm[Hg] 83 mm[Hg] Noemí Martin, RMA [employer] 3 09:41:21 Date Recorded Body height Body mass index (BMI) Body weight Heart rate Body temperature Systolic blood pressure Diastolic blood pressure Provider Name and Address Organization Details Last Updated DateTime 3 172.72 cm 29.6 kg/m2 79435.0 8 g 97 /min 97.8 [degF] 111 mm[Hg] 68 mm[Hg] Gunjan Garcia [employer] 3 09:35:14 Social History Question Answer Notes LastModified by [employer] Details LastModified Time Tobacco Smoking Status Never Smoker Not Available [facility] 06/07/2022 01:46:57 What Is Your Level Of Alcohol Consumption? Occasional Very Rarely [id number] Information not available 06/07/2022 What Is Your Level Of Caffeine Consumption? Heavy Pt Stated Coffee All Day Long [id number] Information not available 06/07/2022 What Type Of Diet Are You Following? DIABETIC Tries To Limit Carb/sugar Intake [id number] Information not available 06/07/2022 What Is Your Occupation? Works From Home [id number] Information not available 06/07/2022 What Is Your Relationship Status? [id number] Information not available 06/07/2022 Do You Use Any Illicit Or Recreational Drugs? No [id number] Information not available 06/07/2022 Do You Have Any Dietary Restrictions? No [id number] Information not available 06/07/2022 Sex: Female Functional Status Question Answer Note LastModified by [employer] Details LastModified Time What is your exercise level? None [id number] Information not available 06/07/2022 Mental Status None recorded. Family History Nothing Reported Notes:diabetes, alzheimers - mother 88 father: cancer 89 twin sister: diabetesbrother Medical History Condition Response EYE PROBLEMS Y GERD/NAUSEA Y DIZZINESS Y HEPATITIS / LIVER DISEASE Y DIABETES, TYPE Y DEPRESSION (INCLUDING POST ) Y INSOMNIA Y HYPERTENSION Y HIGH CHOLESTEROL / HYPERLIPIDEMIA Y Gynecological HistoryNo gynecological history recorded. Obstetrics History GPAL:G 0 P 0 0 0 0 Past Encounters Encounter ID Performer Location Encounter Start Date Encounter Closed Date Diagnosis/Indication Diagnosis SNOMED-CT Code Diagnosis ICD10 Code Diagnosis Note [id number] [facility] [address] [place] [address] 02/15/2022 00:00:00 02/15/2022 15:43:36 [id number] [facility] [address] [place] [address] 04/27/2022 00:00:00 04/27/2022 13:53:50 [id number] Kandi Damian MD [facility] [address] [place] [address] 07/12/2022 09:28:54 07/12/2022 10:09:32 Well controlled type 2 diabetes mellitus 859183114 E11.9 a1c of 7.2% down from 8.5%- Will continue levemir 20 units in morning and 30 units at bedtime and patient aware to increase or decrease by 3 units every 3 days until fasting glucose 90-130 mg/dL. Continue with trulicity 3 mg once weekly along with addition of jardiance 10 mg daily (insurance refuses to cover [facility]), metformin 500 mg twice daily along with glimepirid e scale. Discussed carb counting and how to read food labels. Recommende d patient to utilize the diabetesfo [employer] from the ADA website to help with food preparatio n as this presents ideal carb content per meal so this will make carb counting much easier for patient. Recommende d she incorporat e natural insulin iron molder helper s such as pears, apples, cinnamon, meryl and sweet potatoes to help mobilize her endogenous insulin. Recommende d up to 150 minutes of moderate level activity/e xercise weekly. Mixed hyperlipidemia 267 502458 E78.2 TG elevated- trial on icosapent ethyl 2 grams twice daily with meals. Continue statin therapy as LDL in range. Hypothyroidism 56194102 E03.9 FT4 low normal range- will uptitrate synthroid to 75 mcg daily. She was reminded to take her synthroid on empty stomach with glass of water and wait one hour to eat or have her coffee in morning and up to 4 hours if ever taking any heartburn or reflux medication s to help optimize absorption . Discussed paleo like diet with restrictio n of GMOs to help with energy and to optimize absorption of vitamins and minerals and reduce inflammati on. Abnormal cortisol 049777 003 R94.7 DST borderline high- MRI just faxed over at 10 am during my charting time- MRI was read as normal pituitary. Send for salivary cortisol, urine cortisol and repeat acth/corti concepcion levels. Spent up to 28 minutes preparing to see the patient (eg, review of tests), obtaining and/or reviewing separately obtained history, performing a medically appropriat e examinatio n and evaluation , counseling and educating the patient, ordering medication s, tests, along with documentin g clinical informatio n in the electronic health record, independen tly interpreti ng results and communicat ing results to the patient. RTC in 4 months. Patient was provided a handwritte n lab order which contains our fax number. If she chooses to go outside of the [facility] system to obtain labwork she was advised to provide our fax number and my informatio n to the lab she will be obtaining labwork from in order to have her labs properly forwarded over for me to review so there is no loss of follow up due to use of outside network. She was also advised to contact our clinic informing us that she has completed her labwork so we are aware we will need to reach out to the appropriat e laboratory to request her results be forwarded to us so I might have the ability to review and make further medical decision making in her case. She voiced understand ing. [id number] Kandi Damian MD [facility] [address] [place] [address] 11/08/2022 09:22:53 11/08/2022 09:56:09 Well controlled type 2 diabetes mellitus 511514954 E11.9 a1c of 7.2% down from 8.5%- Continue on levemir 20 units in morning and 20 units at bedtime and patient aware to increase or decrease by 3 units every 3 days until fasting glucose 90-130 mg/dL. Continue with trulicity 3 mg once weekly along with addition of jardiance 10 mg daily, metformin 500 mg twice daily along with glimepirid e scale. Continue with freestyle edward 2 sensor as patient compliant with use and helping to maintain her ideal control. Recommende d she incorporat e natural insulin iron molder helper s such as pears, apples, cinnamon, meryl and sweet potatoes to help mobilize her endogenous insulin. Recommende d up to 150 minutes of moderate level activity/e xercise weekly. Mixed hyperlipidemia 267 004070 E78.2 TG down under 200 mg/dL- continue on on icosapent ethyl 2 grams twice daily with meals. Continue statin therapy as LDL in range. Proteinuria 00430136 R80 .9 Will trial finerenon 10 mg daily as she has proteinuri a- seeing Dr. Palmer for management of her CKD- she is aware this requires a PA and may need him to authroize its use- she is aware to repeat CMP 10 days following start of therapy to monitor potassium levels. Hypothyroidism 98940316 E03.9 FT4 low normal range- will uptitrate synthroid to 75 mcg daily. As she was taking the 50 mcg dose regularly. She was reminded to take her synthroid on empty stomach with glass of water and wait one hour to eat or have her coffee in morning and up to 4 hours if ever taking any heartburn or reflux medication s to help optimize absorption . Discussed paleo like diet with restrictio n of GMOs to help with energy and to optimize absorption of vitamins and minerals and reduce inflammati on. Spent up to 25 minutes preparing to see the patient (eg, review of tests), obtaining and/or reviewing separately obtained history, performing a medically appropriat e examinatio n and evaluation , counseling and educating the patient, ordering medication s, tests, along with documentin g clinical informatio n in the electronic health record, independen tly interpreti ng results and communicat ing results to the patient. Patient can be followed by PCP - she/he is aware of my resignatio n and last day of January 18. If needed his/her PCP can refer patient to another endocrinol ogist in the area. All questions /concerns answered and refills necessary at visit today. Health Concerns Section Related Observation LastModified by Organization Detai ls LastModified Time None Recorded Concern Status LastModified by Organization Details LastModified Time None Recorded Advance Directives Directive None Recorded Payers Encounter Date Sequence Insurance Name Policy Number Policy Arnold Covered Member ID Arnold Member ID Guarantor Name 07/12/2022 1 [facility] PRIOR TO 04/08/2024 - [employer] () Chrissie Plan [id number] Chrissie Plan 11/08/2022 1 [facility] [place] PRIOR TO 2024 - [employer] () Chrissie Plan [id number] Chrissie Plan Notes Date Note Type Note Provider Name and Address Organization Details Recorded Time 07/12/2022 text/html 61 yo female com es in for follow up in management of better controlled type 2 DM (A1C of 7.2% down from 8.5%), dyslipidemia and hypothyroidism. Concern for hypercortisolism. last seen in April at that time we had patient continue levemir 20 units in morning and 30 units at bedtime and patient aware to increase or decrease by 3 units every 3 days until fasting glucose 90-130 mg/dL. We increased her trulicity 3 mg once weekly along with farxiga 10 mg daily and glimepiride scale. She did try to use the patient assistance for farxiga. She never went on the farxiga as the base doesn't cover the farxiga. She is still taking levemir 20 units in morning and 30 units at bedtime and hasn't needed to adjust this. She may take 2 units of humalog for lunch only. She had her MRI completed on the 08 of June but [facility] never sent the results for me to review- so we have placed a call to have results faxed for me to review. She will be going for a renal ultrasound. She feels her sugars are doing better overall- however she still have some sugars over 180 mg/dL on occasion. She has some fatigue as well during the afternoons. labs from 06/28/22:a1c 7.2%microalbumin 147 ug/mg128/219/37/47Cr 1.16 mg/dl with GFR 48 ml/minglucose 84 mg/dLTSH of 2.10 uIU/mlFT4 of 0.99 ng/dLFT3 of 2.41 pg/ML patient seeing Dr. Palmer completed labs in 06/28:glom basement membrane negANCA negsmall monoclonal protein/small gammopathycortisol 2.0 ug/dL following dexa??? from 05/14/22- dexa not provided ACTH of 149 pg/ML (need MRI pituitary results-call placed to facility today) Kandi Damian MD [address] [place] [address] Emily, [facility] [[email or web address]] [address], [place], [address], [employer] [facility] [employer] 07/12/2022 11:08:31 11/08/2022 text/html 62 yo female com es in for follow up in management of well controlled type 2 DM (A1C of 7.2% stable), mixed hyperlipidemia and hypothyroidism last seen in July at that time we had patient continue levemir 20 units in morning and 30 units at bedtime and patient aware to increase or decrease by 3 units every 3 days until fasting glucose 90-130 mg/dL. We had her continue with trulicity 3 mg once weekly along with addition of jardiance 10 mg daily (insurance refuses to cover farxiga), metformin 500 mg twice daily along with glimepiride scale. we continued generic vascepa and statin. we increased synthroid to 75 mcg daily She ran out of the 75 and now on 50 mcg daily but felt better on the 75 mcg dose. Sugars running under 130 mg/dl- denies any hypoglycemia. labs from 10/28:115/179/35/44Cr 1.48 mg/dL with GFR 36 ml/minmicroalbumin 102.8 ug/mga1c 7.2%TSH of 0.44 uIU/mlFT4 of 1.0 ng/dLFT3 of 1.97 pg/mLLFT normal acth 116 pg/ML (we performed MRI pituitary in June 2022 and this was normal readout)normal cortisol Kandi Damian MD [address], [facility] [[email or web address]] [address], [place], [address], [employer] 11/30/2022 16:57:06 OBGyn Episode No OBEpisode recorded.
--- OUTSIDE RECORDS SUMMARY | 2024-05-23 07:39 | XMS_ITS ---
Author Organization [facility] Address [address] [place] [address] Care Team Providers Care Wood Router Hand Name Role Phone Kandi Damian Primary Care Provider REASON FOR VISIT dexa tablet Encounters Encounter Location Date Provider Diagnosis [facility] [address] [place] [address] 03/14/2024 Kandi Damian Plan Of Treatment Next Appt Details Provider Name:Kandi Damian, 09:40:00 AM, [address], [place], [address], Progress Notes * Zehra SETHIOB:1960 ( 63 yo F)Acc No.[id number]:03/14/2024 Patient: Vel DEBBYJefferyri :1960 A ge:63 Y S ex:Female Phone: Address:[facility] [place] [address] * true * Date: Generated for Printi ng/Faxing/eTransmitting on: 0 05/23/2024 07:38 AM [employer]
--- OUTSIDE RECORDS SUMMARY | 2024-05-23 07:39 | XMS_ITS | Clinical Summary ---
Author Organization [facility] Address [address] [place] [address] Care Team Providers Care Wood Tank Builder Name Role Phone Brandie Hare MD Primary Care Provider [phone] Isaiah Aguilar MD Unavailable Unavailable Source Comments [facility],non-owned Affiliates and Associated Physician Practices is amultiple site organization consisting of ambulatory clinics and hospital sitesin [place], [place], [place] and [place]. This disclosure is being madepursuant to the Care Everywhere program and may not contain all information available regarding this patient. Last updated 17.[facility] Allergies No known active allergies Medications * Be aware that medications may not be up to date on this document. Alwaysverify current medications with the patient. Medication Sig Dispensed Refills Start Date End Date Status metformin (GLUCOPHAGE) 500 MG tablet Take 1,000 mg by mouth once daily. Active lisinopril (PRINIVIL; ZESTRIL) 10 MG tablet Take 10 mg by mouth daily. Active MULTI-VITAMIN PO Take by mouth. Acti ve SUMAtriptan (IMITREX) 50 MG tablet Take 50 mg by mouth once as needed. Active Atorvastatin Calcium (LIPITOR PO) Take by mouth. Active etanercept (ENBREL SURECLICK) 50 MG/ML injectionIndicatio ns:Rheumatoid arthritis(714.0) ([facility]) Inject 1 mL subcutaneously every 7 days. 4 Pen 12 01/06/2014 Active meloxicam (MOBIC) 7.5 MG tabletIndications: Achilles tendonitis, right Take 1-2 Tabs by mouth once daily. for 7 days to treat flare ups of pain and inflammation Repeat as needed or call Dr Aguilar if not better 90 Tab 3 01/06/2014 Active Additional Information Patient not taking.Reported on 12/16/2014 omeprazole (PRILOSEC) 40 MG capsule Take 1 Cap by mouth daily before breakfast. 90 Cap 3 03/09/2014 Active traMADol (ULTRAM) 50 MG tabletIndications: Rheumatoid arthritis(714.0) ([facility]) Take 1 Tab by mouth 3 times daily with over the counter Tylenol for daily pain 90 Tab 3 09/20/2014 Active sitaGLIPtin (JANUVIA) 100 MG tablet Take 100 mg by mouth once daily Active adalimumab (HUMIRA PEN) 40 MG/0.8ML injection Inject 0.8 mL subcutaneously every 7 days 4 Pen 11 12/20/2014 Active Active Problems Problem Noted Date Diagnosed Date High risk medications (not anticoagulants) long- term use 01/05/2010 Overview (01/05/2010): 01/05/2010 Marked LFT abnormal ast 119 alt 189 Chronic bronchitis 07/08/2009 GERD (gastroesophageal reflux disease) 0 Rheumatoid arthritis 07/09/2008 Overview (02/13/2015): Symmetrical Polyarthritis, >4 weeks duration, >3 hand joints swollen, symmetric polyarthritis, AM stiffness over 30 minutes in duration, ESR CRP, elevated RF negative Hand Xray: erosions of RA present 07/08/2009 Rapid3=14.7 she has been off Enbrel since 12/15 Abnormal liver function tests 07/09/2008 Overview (07/08/2009): 07/09/2008 Two weeks ago LFT normal 03/31/2009 LFT elevation noted to day Ast/Alt 60/128 06/15 LFT pend still on simvistatin High blood cholesterol 07/09/2008 Encounter for long-term (current) use of NSAIDs 07/09/2008 Resolved Problems Problem Noted Date Diagnosed Date Resolved Date Back pain 07/09/2008 01/06/2014 Carpal tunnel syndrome 03/10/200801/06 Overview (07/09/2008): Flared in March and restarted Enbrel and did better after 3 weeks Family History Medical History Relation Name Comments CAD (Coronary Artery Disease) Father Diabetes Father CAD (Coronary Artery Disease) Mother Diabetes Mother Hypercholesterolemia Sister Relation Name Status Comments Father Mother Sister Social History Tobacco Use Types Packs/Day Years [...] Mass Index 29.39 12/16/2014 1:14 PM CDT Plan of Treatment Health Maintenance Due Date Last Done Comments COLOGUARD (AGES 45-75) - COL ON CA SCREENING 1961 COLON MONITORING 1961 COLONOSCOPY - COLON CA SCREENING 1961 CT COLONOGRAPHY - COLON CA SCREENING 1961 Colorectal Cancer Screening 1961 FIT - COLON CA SCREENING 1961 FLEX SIG - COLON CA SCREENING 1961 MAMMOGRAM 1961 PAP SMEAR 1961 HIV SCREENING 1976 HEPATITIS C SCREENING 07/30/1979 DTAP/TDAP/TD VACCINES (1 - Tdap) 1980 PNEUMOCOCCAL VACCINE 50+ (1 of 1 - PCV) 08/04/2011 ZOSTER VACCINE (1 of 2) 08/04/2011 COVID-19 VACCINE ( - 2023-2 5 season) 2023 INFLUENZA VACCINE (#1) 2023 DEPRESSION SCREENING 04/08/2024 Respiratory Syncytial Virus (RSV) Vaccine Pt: or over 60 yrs (1 - 1-dose 75+ series) 2036 HEPATITIS B VACCINE Aged Out No longe r eligible based on patient's age to complete this topic HIB VACCINE Aged Out No longer eligi ble based on patient's age to complete this topic HPV VACCINE Aged Out No longer eligi ble based on patient's age to complete this topic MENINGOCOCCAL (Group B) VACCINE Aged Out No longer eligible based on patient's age to complete this topic MENINGOCOCCAL VACCINE Aged Out No sharron khushbu eligible based on patient's age to complete this topic PNEUMOCOCCAL VACCINE Aged Out No long er eligible based on patient's age to complete this topic Care Teams Wood Tank Builder Relationship Specialty Start Date End Date Brandie Hare MD PCP - General 07/09/08 Isaiah Aguilar MD [facility] 01/11/11
--- OUTSIDE RECORDS SUMMARY | 2024-05-23 07:39 | XMS_ITS | Referral Summary ---
Author Organization [facility] Address [address] [place] [address] Care Team Providers Care Retail Field Merchandiser Name Role Phone Brandie Hare MD Primary Care Provider [phone] Isaiah Aguilar MD Unavailable Unavailable Source Comments [facility],non-owned Affiliates and Associated Physician Practices is amultiple site organization consisting of ambulatory clinics and hospital sitesin [place], [place], [place] and [place]. This disclosure is being madepursuant to the Care Everywhere program and may not contain all information available regarding this patient. Last updated 17.[facility] [employer] Allergies No known active allergies Medications * [...] (ENBREL SURECLICK) 50 MG/ML injectionIndicatio ns:Rheumatoid arthritis(714.0) ([facility]) Inject 1 mL subcutaneously every 7 days. [...] traMADol (ULTRAM) 50 MG tabletIndications: Rheumatoid arthritis(714.0) ([facility]) Take 1 Tab by mouth 3 times [...] Enbrel and did better after 3 weeks Social History Tobacco Use Types Packs/Day Years [...] 12/16/2014 1:14 PM CDT Plan of Treatment Not on file Care Teams Retail Field Merchandiser Relationship Specialty Start Date End Date Brandie Hare MD PCP - General 07/09/08 Isaiah Aguilar MD Rheumatology 01/11/11
[2024-05-26 01:59] LABS: Cortisol Random 1.3 mcg/dL
== END 2024-05-23 07:37 | disposition home or self-care (01) ==
PROVIDERS: PCP Internal Medicine; Visit Provider Internal Medicine Endocrinology, Diabetes & Metabolism
DX: E11.65 Type 2 diabetes mellitus with hyperglycemia (principal); E03.9 Hypothyroidism, unspecified; E66.9 Obesity, unspecified
CPT/HCPCS: 36415; 80299; 82533